=== PATIENT | male | born 1960 | race African-American/Black ===

== ENCOUNTER 2016-05-10 03:01 | Emergency (ER) | payer OTHER ==
[~2016-05-10] VITALS: Ht 177.8 cm; Wt 112.0 kg
[~2016-05-10 03:01] MED LIST: ASPIR 8181 MG PO; ATORVASTATIN CA40 MG PO; COREG3.125 MG PO; EPOGEN10000 UNIT IV; ERYTHROMYCIN E3.5 G1 OPHTHALMIC; FLORANEX TABLE1 EACH; FOLIC ACID1 MG PO; GLUCOSE BITS1 GM; LIORESAL 10 MG10 MG; NEURONTIN 300300 M1; PHOSLO667 MG; PLAVIX 75 MG TA75 M1 PO; PROTONIX40 M1; REGLAN 10 MG TA10 MG PO; SANTYL OINTMENT30 G1 TP; SODIUM BICARBO650 M3 PO; SULFAMYLON; TIMOLOL MA0.25 %/5 M; VITAMINC500; XALATAN2.5 ML
[2016-05-10] MEDS ORDERED: ASPIR 8181 MG PO (03:20)
[2016-05-10] MEDS ORDERED: TYLENOL325 MG PO (03:26)
[2016-05-10] MEDS ORDERED: NEPHRO-VITE RX1 TA1 PO (03:26)
[2016-05-10] MEDS ORDERED: AZOPT OPHTH1 %/10 M1 OP (03:27)
[2016-05-10] MEDS ORDERED: TRAZODONE HCL50 MG PO (03:28)
[2016-05-10] MEDS ORDERED: LOPERAMIDE 2 MG2 M1 PO ×2 (03:28→03:32)
[2016-05-10] MEDS ORDERED: ALPHAGAN P10 ML OP (03:28)
[2016-05-10] MEDS ORDERED: ERYTHROMYCIN E3.5 G3 OPHTHALMIC (03:29)
[2016-05-10] MEDS ORDERED: WELLBUTRIN 100100 MG PO (03:30)
[2016-05-10] MEDS ORDERED: ATIVAN0.5 MG PO (03:30)
[2016-05-10] MEDS ORDERED: RENVELA800 MG PO (03:31)
[2016-05-10] MEDS ORDERED: TRAMADOL 50 MG50 MG PO (03:31)
[2016-05-10] MEDS ORDERED: ONDANSETRON HCL4 M2 PO (03:32)
[2016-05-10] MEDS ORDERED: OCUFLOX10 ML OP (03:32)
[2016-05-10] MEDS ORDERED: SULFAMYLON TP (03:34)
[2016-05-10 04:10] VITALS: BP 132/63
== END 2016-05-10 05:12 | disposition home or self-care (01) ==
LOC: ER 03:01
DX: S09.90XA Unspecified injury of head, initial encounter (principal); I12.0 Hypertensive chronic kidney disease with stage 5 chronic kidney disease or end stage renal disease; N18.6 End stage renal disease; E11.9 Type 2 diabetes mellitus without complications; H40.9 Unspecified glaucoma; Z88.8 Allergy status to other drugs, medicaments and biological substances; W06.XXXA Fall from bed, initial encounter; Y93.89 Activity, other specified; Y92.89 Other specified places as the place of occurrence of the external cause; Y99.8 Other external cause status

== ENCOUNTER 2016-10-27 16:52 | Emergency (ER) | payer OTHER ==
[~2016-10-27] VITALS: Ht 177.8 cm; Wt 124.7 kg
--- NOTE | ~2016-10-27 | EKG ---
[place] [address] [address] [place] [address] ELECTROCARDIOGRAM REPORT Name: TAON FISCHER Room #: DEP Idalia#: [id number] Admission: 10/27/16 Attend Phys: Discharge: 10/27/16 Date of : 56 Report #: [id number] THIS REPORT FOR: //name// [facility] ED Test Date: 2016-10-27 Test Time: 16:55:53 Pat Name: TOAN FISCHER Department: Room: Gender: Rangeland Management Specialist: JINNY : 1960 Requested By: Pam Delacruz Order Number: [id number] MD: Mehran Cobb Measurements Intervals [place] Rate: 93 P: 31 [place]: 177 QRS: 3 QRSD: 80 T: 65 QT: 388 QTc: 483 Interpretive Statements Sinus rhythm Left ventricular hypertrophy Borderline prolonged QT interval No previous ECG available for comparison Electronically Signed On 10-28-2016 22:54:44 CDT by Mehran Cobb [email or web address] <ELECTRONICALLY SIGNED> By: Mehran Cobb MD 10/28/16 2254 1655 1655 Mehran Cobb MD /HUONG
[~2016-10-27 16:52] MED LIST changes: +ALPHAGAN P10 ML OP; +ATIVAN0.5 MG PO; +AZOPT OPHTH1 %/10 M1 OP; +ERYTHROMYCIN E3.5 G3 OPHTHALMIC; +LOPERAMIDE 2 MG2 M1 PO; +NEPHRO-VITE RX1 TA1 PO; +OCUFLOX10 ML OP; +ONDANSETRON HCL4 M2 PO; +RENVELA800 MG PO; +SULFAMYLON TP; +TRAMADOL 50 MG50 MG PO; +TRAZODONE HCL50 MG PO; +TYLENOL325 MG PO; +WELLBUTRIN 100100 MG PO
[2016-10-27] MEDS ORDERED: BENADRYL25 MG PO (17:17)
[2016-10-27] MEDS ORDERED: CYCLOBENZAPRINE5 MG PO (17:22)
[2016-10-27] MEDS ORDERED: ACETAMINOPHEN-1 EAC1 PO (17:23)
[2016-10-27] MEDS ORDERED: COLACE100 MG PO (17:24)
[2016-10-27] MEDS ORDERED: LIPITOR 20 MG T20 M1 PO (17:25)
[2016-10-27 17:29] LABS: ABSOLUTE NEUTROPHILS 5.1 thou/uL (1.4-8.2); BASOPHILS 0.5 % (0.0-2.0); EOSINOPHILS 1.5 % (0.0-3.0); HEMATOCRIT 40.9 % (42.0-52.0); HEMOGLOBIN 13.1 gm/dL (14.0-18.0); LYMPHOCYTES 12.4 % (24.0-44.0); MCH 31.5 pg (26.0-34.0); MCHC 32.1 g/dL (28.0-37.0); MCV 98.2 fL (80.0-100.0); MONOCYTES 8.4 % (1.0-8.0); PLATELET COUNT 206 thou/uL (150-400); POLYS 77.2 % (36.0-66.0); RBC 4.16 mil/uL (4.50-6.00); RDW 16.3 % (10.5-14.5); WBC 6.6 thou/uL (4.0-11.0)
[2016-10-27 17:30] LABS: MANUAL DIFF NO
[2016-10-27 17:32] LABS: ANION GAP 8 mmol/L (7-16); BUN 37 mg/dL (7-18); CHLORIDE 97 mmol/L (98-107); CO2 29 mmol/L (21-32); CREATININE 5.7 mg/dL (0.7-1.3); GLUCOSE 98 mg/dL (74-106); SODIUM 134 mmol/L (136-145)
[2016-10-27 17:40] LABS: TROPONIN-I < 0.04 ng/mL (<0.04-0.07)
[2016-10-27 20:09] LABS: ABG COMMENT ROOM AIR; ABG SAMPLE TYPE ARTERIAL; BE(vivo) 4.7 mmol/L (-2 to +3); HCO3 30.3 mmol/L (22.0-26.0); LACTATE 1.25 mmol/L (0.5-2.0); O2Hb 88.9 % (92.0-98.0); PCO2 49.2 mmHg (35.0-45.0); PO2 67.7 mmHg (80.0-100.0); STICK SITE L.RADIAL; pH 7.408 (7.360-7.450); sO2 93.4 % (92.0-98.0); tCO2 31.9 mmol/L (24.0-30.0)
[2016-10-27 21:25] VITALS: BP 174/103
== END 2016-10-27 21:02 | disposition home or self-care (01) ==
LOC: ER 16:52
PROVIDERS: Emergency Medicine
DX: R41.82 Altered mental status, unspecified (principal); I12.0 Hypertensive chronic kidney disease with stage 5 chronic kidney disease or end stage renal disease; E11.22 Type 2 diabetes mellitus with diabetic chronic kidney disease; N18.6 End stage renal disease; K21.9 Gastro-esophageal reflux disease without esophagitis; I48.91 Unspecified atrial fibrillation; H40.9 Unspecified glaucoma; Z88.8 Allergy status to other drugs, medicaments and biological substances

== ENCOUNTER 2016-10-28 11:19 | Emergency (ER) | payer OTHER ==
[~2016-10-28] VITALS: Ht 177.8 cm; Wt 99.8 kg
[~2016-10-28 11:19] MED LIST changes: +ACETAMINOPHEN-1 EAC1 PO; +BENADRYL25 MG PO; +COLACE100 MG PO; +CYCLOBENZAPRINE5 MG PO; +LIPITOR 20 MG T20 M1 PO
[2016-10-28 11:57] LABS: ABSOLUTE NEUTROPHILS 3.8 thou/uL (1.4-8.2); BASOPHILS 0.7 % (0.0-2.0); HEMATOCRIT 40.4 % (42.0-52.0); MCH 31.8 pg (26.0-34.0); MCHC 32.2 g/dL (28.0-37.0); MCV 98.6 fL (80.0-100.0); MONOCYTES 11.1 % (1.0-8.0); PLATELET COUNT 191 thou/uL (150-400); POLYS 69.2 % (36.0-66.0); RDW 16.4 % (10.5-14.5); WBC 5.5 thou/uL (4.0-11.0)
[2016-10-28 11:58] LABS: MANUAL DIFF NO
[2016-10-28 12:08] LABS: POTASSIUM 5.1 mmol/L (3.5-5.1)
[2016-10-28 12:09] LABS: CREATININE 7.1 mg/dL (0.7-1.3)
[2016-10-28 12:12] LABS: ALBUMIN 2.6 g/dL (3.4-5.0); DIRECT BILIRUBIN 0.2 mg/dL (<0.1-0.3); TOTAL BILIRUBIN 0.4 mg/dL (<0.1-1.0); TOTAL PROTEIN 8.6 g/dL (6.4-8.2)
[2016-10-28 13:25] VITALS: BP 174/91
== END 2016-10-28 12:24 | disposition home or self-care (01) ==
LOC: ER 11:19
PROVIDERS: Emergency Medicine
DX: R41.82 Altered mental status, unspecified (principal); I48.91 Unspecified atrial fibrillation; K21.9 Gastro-esophageal reflux disease without esophagitis; I12.0 Hypertensive chronic kidney disease with stage 5 chronic kidney disease or end stage renal disease; E11.22 Type 2 diabetes mellitus with diabetic chronic kidney disease; N18.6 End stage renal disease; Z88.8 Allergy status to other drugs, medicaments and biological substances

== ENCOUNTER 2016-11-27 10:11 | Inpatient (IN) | payer OTHER ==
[~2016-11-27] VITALS: Ht 177.8 cm; Wt 88.5 kg
[2016-11-27] VITALS (7 sets, daily range): BP systolic 150–198; BP diastolic 79–111
--- NOTE | ~2016-11-27 | EKG ---
[place] [address] [facility] [place] [address] ELECTROCARDIOGRAM REPORT Name: GURJIT FISCHERWin Reyna Room #: 306-P ADM IN M.R.#: [id number] Admission: 11/27/16 Attend Phys: Ford Marie MD Discharge: Date of : 56 Report #: [id number] THIS REPORT FOR: //name// [facility] ED Test Date: 2016-11-27 Test Time: 10:17:57 Pat Name: TOAN FISCHER Department: Room: [facility] Gender: M Date Pitter: [id number] : 1960 Requested By: Ben Arthur Order Number: [id number] MD: Fan Cody Measurements Intervals [place] Rate: 88 P: 33 [place]: 177 QRS: 3 QRSD: 89 T: 59 QT: 374 QTc: 453 Interpretive Statements Sinus rhythm Ventricular premature complexes Left ventricular hypertrophy Compared to ECG 10/27/2016 16:55:53 Ventricular premature complex(es) now present Electronically Signed On 11-28-2016 9:20:39 CDT by Fan Cody [email or web address] <ELECTRONICALLY SIGNED> By: Fan Cody MD, [facility] 11/28/16 0920 1017 1017 Fan Cody MD, [facility] /EPI
--- NOTE | ~2016-11-27 | HC ---
[facility] [place] [address] CONSULTATION Name: TOAN FISCHER Room #: 306-P [facility] IN ..#: [id number] Admission: 11/27/16 Attend Phys: Ford Marie MD Discharge: Date of : 56 Report #: [id number] THIS REPORT FOR: //name// CC: Ford Marie [facility] REASON FOR CONSULTATION: Mental status issue with end-stage renal disease. HISTORY OF PRESENT ILLNESS: The patient is currently having mental status issues. History was obtained from the chart and the medical records. He is well known to me from previous hospital stays and encounters in an outpatient setting. He is an end-stage renal disease patient who is known to have some baseline dementia. He is dialyzing in [facility] every Thursday, Thursday and Thursday. He has end-stage renal disease due to diabetes mellitus and hypertension. He was brought from his facility yesterday stating that he was confused, sleepy. He was admitted for further evaluation and management. His sister was bedside. Per the nursing staff in the facility, they found him with an altered mental status. As I have stated, he is known to have some baseline dementia and it is really very difficult to tell what kind of change did he have in his mental status. I was consulted to manage his end-stage renal disease. PAST MEDICAL HISTORY: 1. Baseline dementia. 2. End-stage renal disease, maintained on hemodialysis every Thursday, Thursday and Thursday. 3. Diabetes mellitus. 4. AFib. 5. Hypertension. 6. Peripheral arterial disease. 7. Anemia. MEDICATIONS: 1. Sevelamer. 2. Aspirin. 3. Baclofen. 4. Plavix. 5. Folic acid. 6. Gabapentin. 7. Trazodone. REVIEW OF SYSTEMS: Unobtainable given the patient's current presentation. FAMILY HISTORY: Unobtainable given the patient's mental status. PHYSICAL EXAMINATION: GENERAL: The patient is sleepy, lethargic. He is not in any apparent distress. [address] [address] CONSULTATION Name: TOAN FISCHER Axel Room #: 306-P [facility] IN M.R.#: [id number] Admission: 11/27/16 Attend Phys: Ford Marie MD Discharge: Date of : 56 Report #: [id number] VITAL SIGNS: Most recent blood pressure 124/86, temperature 36.6, pulse rate is 116. HEAD AND NECK: No jugular venous distention, no bruit, no thyromegaly. CHEST: Decreased air entry bilaterally. CARDIOVASCULAR: Regular with no rub detected. ABDOMEN: Soft, nontender. LOWER EXTREMITIES: Trace edema. He has some heel ulcers. UPPER EXTREMITIES: Right AV fistula. LABORATORY VALUES: Reviewed. White blood cell count normal. Blood gas is acceptable. Chemistry showed hyperkalemia. He is hypoalbuminemic. CT head was negative. ASSESSMENT, IMPRESSION AND PLAN: 1. End-stage renal disease. 2. Mental status issues, probably related to medication-induced mental status changes due to baclofen and Neurontin. Stop those medications. 3. UA is not suggestive of urinary tract infections and I would discontinue Rocephin. 4. Hemodialysis will be arranged today. <ELECTRONICALLY SIGNED> By: Soledad Silva MD 11/29/16 0725 0806 0940 Soledad Silva MD /nt
[2016-11-27 10:33] LABS: HEMATOCRIT 35.4 % (42.0-52.0); HEMOGLOBIN 11.5 gm/dL (14.0-18.0); MCH 30.7 pg (26.0-34.0); MCHC 32.5 g/dL (28.0-37.0); MCV 94.4 fL (80.0-100.0); RBC 3.75 mil/uL (4.50-6.00); RDW 14.9 % (10.5-14.5)
[2016-11-27 10:44] LABS: ANION GAP 11 mmol/L (7-16); BUN 48 mg/dL (7-18); CALCIUM 9.1 mg/dL (8.5-10.1); CHLORIDE 102 mmol/L (98-107); CO2 26 mmol/L (21-32); CREATININE 7.3 mg/dL (0.7-1.3); GLUCOSE 90 mg/dL (74-106); POTASSIUM 4.9 mmol/L (3.5-5.1); SODIUM 139 mmol/L (136-145)
[2016-11-27 10:46] LABS: INR 1.1
[2016-11-27 10:51] LABS: TROPONIN-I < 0.04 ng/mL (<0.04-0.07)
[2016-11-27 11:20] LABS: ALBUMIN 2.3 g/dL (3.4-5.0); DIRECT BILIRUBIN 0.2 mg/dL (<0.1-0.3); TOTAL BILIRUBIN 0.3 mg/dL (<0.1-1.0); TOTAL PROTEIN 8.2 g/dL (6.4-8.2)
[2016-11-27 13:23] LABS: URINE BILIRUBIN NEGATIVE (Negative); URINE BLOOD 3+ (Negative); URINE COLOR YELLOW; URINE GLUCOSE-RANDOM* NEGATIVE (Negative); URINE KETONES NEGATIVE (Negative); URINE LEUKOCYTES-REFLEX 3+ (Negative); URINE PROTEIN (DIPSTICK) 2+ (Negative); URINE SPECIFIC GRAVITY 1.015 (1.003-1.035); URINE UROBILINOGEN 0.2 E.U./dl (0.2-1.0)
[2016-11-27 13:33] LABS: SQUAMOUS 0-3 Few /LPF (0-3)
[2016-11-27 13:34] LABS: CASTS None Seen /LPF (None Seen)
[2016-11-27 13:37] LABS: AMORPHOUS URATES Many /LPF (None Seen)
[2016-11-27 17:22] LABS: ABG SAMPLE TYPE ARTERIAL; BE(vivo) -3.1 mmol/L (-2 to +3); HCO3 22.5 mmol/L (22.0-26.0); LACTATE 1.39 mmol/L (0.5-2.0); O2(CT) 14.3 mL/dL (15.0-23.0); O2Hb 88.9 % (92.0-98.0); PCO2 42.2 mmHg (35.0-45.0); PO2 75.6 mmHg (80.0-100.0); pH 7.344 (7.360-7.450); sO2 94.5 % (92.0-98.0); tCO2 23.8 mmol/L (24.0-30.0)
[2016-11-27 17:23] LABS: STICK SITE R.RADIAL
[2016-11-27] MEDS ORDERED: NEPHRO-VITE PO (18:46)
[2016-11-27] MEDS ORDERED: JUVEN PACKET1 EACH PO ×2 (19:36→19:37)
[2016-11-27] MEDS ORDERED: AZOPT OPHTH1 %/10 M1 OPHTHALMIC (19:38)
[2016-11-27] MEDS ORDERED: ROBITUSSIN PO (19:44)
[2016-11-27] MEDS ORDERED: VOLTAREN GEL 1100 G2 TOP (19:52)
[2016-11-27] MEDS ORDERED: SULFAMYLON TP (19:53)
[2016-11-28 03:55] VITALS: BP 124/86
[2016-11-28 04:46] LABS: HEMATOCRIT 36.7 % (42.0-52.0); MCHC 32.7 g/dL (28.0-37.0); MCV 94.8 fL (80.0-100.0); RBC 3.87 mil/uL (4.50-6.00); RDW 14.8 % (10.5-14.5); WBC 6.7 thou/uL (4.0-11.0)
[2016-11-28 04:58] LABS: ALBUMIN 2.3 g/dL (3.4-5.0); CREATININE 8.1 mg/dL (0.7-1.3); POTASSIUM 5.4 mmol/L (3.5-5.1); TOTAL BILIRUBIN 0.3 mg/dL (<0.1-1.0); TOTAL PROTEIN 8.5 g/dL (6.4-8.2)
[2016-11-28 08:12] VITALS: BP 166/87
[2016-11-28 11:52] LABS: FOLIC ACID 37.5 ng/mL (8.6-58.9)
[2016-11-28 15:31] VITALS: BP 177/98
[2016-11-28 20:00] VITALS: BP 189/113
[2016-11-29] VITALS: BP 165/84
[2016-11-29 04:00] VITALS: BP 155/86
[2016-11-29 05:41] LABS: HEMATOCRIT 32.9 % (42.0-52.0); HEMOGLOBIN 10.9 gm/dL (14.0-18.0); MCH 31.4 pg (26.0-34.0); MCHC 33.1 g/dL (28.0-37.0); MCV 94.6 fL (80.0-100.0); RBC 3.48 mil/uL (4.50-6.00); RDW 14.6 % (10.5-14.5); WBC 7.1 thou/uL (4.0-11.0)
[2016-11-29 05:48] LABS: CALCIUM 8.8 mg/dL (8.5-10.1); POTASSIUM 4.1 mmol/L (3.5-5.1)
[2016-11-29 05:51] LABS: CREATININE 5.8 mg/dL (0.7-1.3)
[2016-11-29 07:17] VITALS: BP 151/80
[2016-11-29 16:00] VITALS: BP 159/97
[2016-11-29 19:45] VITALS: BP 168/89
[2016-11-30 04:15] VITALS: BP 191/101
[2016-11-30 05:44] VITALS: BP 159/90
[2016-11-30 08:12] VITALS: BP 147/84
[2016-11-30 16:21] VITALS: BP 165/86
[2016-11-30 20:00] VITALS: BP 142/76
[2016-12-01 03:57] VITALS: BP 180/90
[2016-12-01 05:31] VITALS: BP 136/59
[2016-12-01 07:11] LABS: CALCIUM 8.6 mg/dL (8.5-10.1); POTASSIUM 4.1 mmol/L (3.5-5.1)
[2016-12-01 07:13] LABS: CREATININE 9.8 mg/dL (0.7-1.3)
[2016-12-01 10:22] VITALS: BP 154/81
[2016-12-01 20:10] VITALS: BP 125/72
[2016-12-02 03:55] VITALS: BP 120/63
[2016-12-02 08:23] VITALS: BP 142/86
== END 2016-12-02 14:36 | DRG 871 ==
LOC: ER 10:11 → EROBS 13:51 → 3N 13:51
PROVIDERS: Emergency Medicine; Family Medicine; Psychiatry & Neurology Neurology
PROC: 5A1D60Z (ICD-10-PCS; principal; 2016-12-01)
DX: A41.9 Sepsis, unspecified organism (principal); G93.41 Metabolic encephalopathy; N18.6 End stage renal disease; N39.0 Urinary tract infection, site not specified; I12.0 Hypertensive chronic kidney disease with stage 5 chronic kidney disease or end stage renal disease; E44.0 Moderate protein-calorie malnutrition; E11.22 Type 2 diabetes mellitus with diabetic chronic kidney disease; H40.9 Unspecified glaucoma; K21.9 Gastro-esophageal reflux disease without esophagitis; E11.51 Type 2 diabetes mellitus with diabetic peripheral angiopathy without gangrene; I48.91 Unspecified atrial fibrillation; E87.5 Hyperkalemia; E11.649 Type 2 diabetes mellitus with hypoglycemia without coma; G20 Parkinson's disease; F02.80 Dementia in other diseases classified elsewhere, unspecified severity, without behavioral disturbance, psychotic disturbance, mood disturbance, and anxiety; Z79.899 Other long term (current) drug therapy; Z88.8 Allergy status to other drugs, medicaments and biological substances; Z68.28 Body mass index [BMI] 28.0-28.9, adult; Z79.4 Long term (current) use of insulin; Z86.73 Personal history of transient ischemic attack (TIA), and cerebral infarction without residual deficits; Z99.2 Dependence on renal dialysis
CPT/HCPCS: 10795; 32100

== ENCOUNTER 2017-06-10 06:37 | Inpatient (IN) | payer OTHER ==
[2017-06-10] VITALS (46 sets, daily range): BP systolic 73–131; BP diastolic 29–80
[~2017-06-10] VITALS: Ht 177.8 cm; Wt 93.0 kg
--- NOTE | ~2017-06-10 | HC ---
[facility] [address] [place] [address] CONSULTATION Name: TOAN FISCHER Room #: 246-P [facility] IN M.R.#: [id number] Admission: 06/10/17 Attend Phys: Jocelyne Gonzalez MD Discharge: Date of : 56 Report #: [id number] THIS REPORT FOR: //name// CC: FAM unknown Herbie Ponce Jocelyne Gonzalez DATE OF SERVICE: 06/10/2017 ATTENDING PHYSICIAN: Jocelyne Gonzalez MD. REASON FOR CONSULTATION: End-stage renal disease and sepsis. HISTORY OF PRESENT ILLNESS: The patient is known to our service. This is a 56-year-old gentleman with severe diabetes and triopathy, who has been on dialysis for some time. He dialyzes at the [facility] and resides in the [facility]. He developed profuse nausea, vomiting and hypotension with decreased mental status and was taken to the Emergency Room. PAST MEDICAL HISTORY: Longstanding diabetes mellitus, history of atrial fibrillation, peripheral arterial disease. He has had previous left heel ulcer and some degree of cognitive impairment. HOME MEDICATIONS: Have been compiled. FAMILY HISTORY: Please see old charts. SOCIAL HISTORY: Lives at [facility]. REVIEW OF SYSTEMS: Cannot be taken as the patient is unresponsive. PHYSICAL EXAMINATION: GENERAL: This is an ill-appearing gentleman, barely arousable. SKIN: Shows decreased turgor. SKELETAL: Shows him to be rather obese. HEENT: Extraocular movements cannot be tested. No scleral icterus. Hearing and vision not tested. Mucous membranes dry. The neck veins are flat. CHEST: Shows shallow breath sounds. HEART: Regular. ABDOMEN: Soft and nontender. EXTREMITIES: Show no edema. He has a reasonably well-healed left heel ulcer. LABORATORY DATA: Pending. [facility] [address] [place] [address] CONSULTATION Name: TOAN FISCHER Room #: 246-P [facility] IN .R.#: [id number] Admission: 06/10/17 Attend Phys: Jocelyne Gonzalez MD Discharge: Date of : 56 Report #: [id number] ASSESSMENT AND PLAN: 1. End-stage renal disease. We will watch his labs closely. We will need dialysis. 2. Septic shock. Appears to have septic shock with low blood pressures, likely source could be his dialysis catheter. Blood cultures and appropriate antibiotics and fluids are being given for resuscitation. 3. 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 4. Diabetes mellitus with triopathy. 5. History of cognitive impairment. <ELECTRONICALLY SIGNED> By: Herbie Ponce MD 06/12/17 0823 1117 0258 Herbie Ponce MD /nt
--- NOTE | ~2017-06-10 | HC ---
[facility] [place] [address] CONSULTATION Name: AALIYAHTOAN E Room #: 246-P [facility] IN M.R.#: [id number] Admission: 06/10/17 Attend Phys: Jocelyne Gonzalez MD Discharge: Date of : 56 Report #: [id number] THIS REPORT FOR: //name// CC: FAM unknown Herbie Ponce Jocelyne Gonzalez DATE OF SERVICE: 06/10/2017 REASON FOR CONSULTATION: I was asked to evaluate concerning fever, gastroenteritis symptoms and shock. HISTORY OF PRESENT ILLNESS: The patient is a 56-year-old senior care resident with end-stage renal disease, longstanding gastroparesis, diabetes and hypertension. He dialyzes via a right chest dialysis catheter 3 days a week. Approximately 4 days ago, he developed nausea, vomiting and diarrhea. Some chills associated with this with temperature up to 100.1 degrees. No cough or sputum production. Complains of arthritis symptoms and myalgias. No bloody emesis. No melena or hematochezia. Brought into the Emergency Room from the Dialysis Unit. Temperature was 37.9, heart rate 121, and blood pressures dropped down into the 60s systolic. He has received 2 liters of IV fluid and now is being started on Levophed drip. A left IJ catheter was placed, but it is poorly positioned currently and is having difficulty infusing or drawing from the catheter. ALLERGIES: LYRICA. MEDICATIONS: As noted on his MAR including Wellbutrin, Renvela, Colace, Kaleb, Voltaren gel, Sulfamylon, aspirin, PhosLo, Plavix, folic acid, Neurontin, Protonix, Xalatan eyedrops, timolol eyedrops, Azopt eyedrops, Desyrel, Tylenol, Aranesp and Benadryl. Started on vancomycin and Zosyn. PAST MEDICAL HISTORY: He has had left heel decubitus ulcer, diabetes, hypertension, atrial fibrillation, glaucoma, end-stage renal disease, gastroesophageal reflux, gastroparesis, cataracts. FAMILY HISTORY: Noncontributory. SOCIAL HISTORY: Nonsmoker. No significant alcohol intake. Now a senior care resident. REVIEW OF SYSTEMS: As noted above. PHYSICAL EXAMINATION: VITAL SIGNS: Temperature 37.9, pulse 103, blood pressure 75/33. GENERAL: He was very weak and lethargic, although was able to answer questions. [facility] [address] [place] [address] CONSULTATION Name: TOAN FISCHER Room #: 246-P [facility] IN [facility]#: [id number] Admission: 06/10/17 Attend Phys: Jocelyne Gonzalez MD Discharge: Date of : 56 Report #: [id number] Had changes of advanced arthritis, appeared mostly degenerative in nature. EXTREMITIES: Unremarkable. Mucous membranes were dry. He had just had an emesis. SKIN: No active evidence of rash or decubiti. Right heel had a scar from his previous ulcer. Thickened skin over the plantar aspect of his left heel with no evidence of ulceration or infection. No pelvic decubiti noted. NECK: Supple. LUNGS: Clear. HEART: Regular, tachycardic. ABDOMEN: Mildly distended, mild diffuse tenderness, no hepatosplenomegaly or mass. GENITOURINARY: External genitalia unremarkable. His right IJ tunneled dialysis catheter was unremarkable. There was a contamination of the dressing from his emesis. Tunnel was nontender. LABORATORY STUDIES: Stool studies are pending. Chest x-ray: Basilar atelectasis with poor inspiration. Other laboratory studies have not yet been collected due to issues with a central line. We do have a set of blood cultures in place and stool sample. Await influenza antigen. IMPRESSION: The patient has hypovolemic and possibly septic shock with low-grade fever, gastroparesis with gastroenteritis symptoms. Unclear at this time if we are dealing with influenza or primary gastroenteritis infection. Other consideration would be flare up of his gastroparesis symptoms. This typically, however, would not be associated with diarrhea necessarily. I do not see any evidence of pneumonia or skin or soft tissue infection. Recommend awaiting blood cultures. I have discussed with ER staff as well as Nephrology. He has had antibiotics started, would continue with fluid resuscitation and we will obtain samples for stool culture, C. difficile by PCR and screen for influenza. He will continue with vancomycin and Zosyn and we will add Tamiflu pending further studies. <ELECTRONICALLY SIGNED> By: José Miguel Slaughter MD 06/11/17 0925 1122 2348 José Miguel Slaughter MD /nt
[~2017-06-10 06:37] MED LIST changes: +AZOPT OPHTH1 %/10 M1 OPHTHALMIC; +JUVEN PACKET1 EACH PO; +NEPHRO-VITE PO; +ROBITUSSIN PO; +VOLTAREN GEL 1100 G2 TOP
[2017-06-10] MEDS ORDERED: TYLENOL EXTRA500 MG PO (09:18)
[2017-06-10] MEDS ORDERED: ARANESP25 MCG/0.4 IV (09:20)
[2017-06-10] MEDS ORDERED: BENADRYL25 MG PO (09:21)
[2017-06-10] MEDS ORDERED: LOPERAMIDE 2 MG2 M1 PO (10:29)
[2017-06-10] MEDS ORDERED: HYDROCODON-ACE1 EAC7 PO (10:31)
[2017-06-10] MEDS ORDERED: NEPHROCAPS SOFT1 CAP PO (10:32)
[2017-06-10] MEDS ORDERED: PERIDEX 0.12%473 M1 PO (10:34)
[2017-06-10] MEDS ORDERED: ERYTHROMYCIN 2% OPHTHALMIC (10:37)
[2017-06-10] MEDS ORDERED: REGLAN 10 MG TA10 MG PO (10:38)
[2017-06-10] MEDS ORDERED: [UNRECOGNIZED DRUG - MIXTURE] (10:41)
[2017-06-10] MEDS ORDERED: OCUFLOX5 ML OPHTHALMIC (10:42)
[2017-06-10] MEDS ORDERED: ARTIFICIAL TEAR15 M2 OPHTHALMIC (10:43)
[2017-06-10] MEDS ORDERED: ULTRAM 50MG TAB50 MG PO (10:44)
[2017-06-10] MEDS ORDERED: [UNRECOGNIZED DRUG - OTHER] (10:45)
[2017-06-10 11:18] LABS: RBC 2.77 mil/uL (4.50-6.00)
[2017-06-10 11:20] LABS: HEMATOCRIT 28.2 % (42.0-52.0); HEMOGLOBIN 9.1 gm/dL (14.0-18.0); MCHC 32.5 g/dL (28.0-37.0); MCV 101.6 fL (80.0-100.0); PLATELET COUNT 159 thou/uL (150-400); RDW 15.4 % (10.5-14.5); WBC 23.8 thou/uL (4.0-11.0)
[2017-06-10 11:26] LABS: CALCIUM 7.6 mg/dL (8.5-10.1); CREATININE 6.9 mg/dL (0.7-1.3); POTASSIUM 4.2 mmol/L (3.5-5.1)
[2017-06-10 11:32] LABS: ALBUMIN 1.5 g/dL (3.4-5.0); TOTAL BILIRUBIN 0.4 mg/dL (<0.1-1.0); TOTAL PROTEIN 5.5 g/dL (6.4-8.2)
[2017-06-10 11:45] LABS: ABSOLUTE NEUTROPHILS 23.1 thou/uL (1.4-8.2)
[2017-06-10 11:47] LABS: ANISOCYTOSIS 1+; MACROCYTES 1+; POLYCHROMASIA OCCASIONAL
[2017-06-10 12:25] LABS: APTT 27.8 Seconds (24.5-32.8); INR 1.1; PROTIME 11.4 Seconds (9.3-11.4)
[2017-06-10 15:40] LABS: CALCIUM 7.4 mg/dL (8.5-10.1); CREATININE 6.9 mg/dL (0.7-1.3); POTASSIUM 4.4 mmol/L (3.5-5.1)
[2017-06-10 18:56] LABS: CALCIUM 7.6 mg/dL (8.5-10.1); CREATININE 7.1 mg/dL (0.7-1.3); POTASSIUM 4.6 mmol/L (3.5-5.1)
[2017-06-11] VITALS (79 sets, daily range): BP systolic 62–117; BP diastolic 36–84
[2017-06-11 04:59] LABS: ABSOLUTE NEUTROPHILS 13.6 thou/uL (1.4-8.2); BASOPHILS 0.9 % (0.0-2.0); EOSINOPHILS 1.4 % (0.0-3.0); HEMATOCRIT 27.3 % (42.0-52.0); HEMOGLOBIN 8.7 gm/dL (14.0-18.0); LYMPHOCYTES 7.8 % (24.0-44.0); MCH 32.6 pg (26.0-34.0); MCHC 31.7 g/dL (28.0-37.0); MCV 102.9 fL (80.0-100.0); MONOCYTES 5.9 % (1.0-8.0); PLATELET COUNT 141 thou/uL (150-400); RBC 2.66 mil/uL (4.50-6.00); RDW 15.8 % (10.5-14.5); WBC 16.2 thou/uL (4.0-11.0)
[2017-06-11 05:12] LABS: CALCIUM 7.6 mg/dL (8.5-10.1); CREATININE 7.6 mg/dL (0.7-1.3); POTASSIUM 4.5 mmol/L (3.5-5.1)
[2017-06-12] VITALS (36 sets, daily range): BP systolic 75–131; BP diastolic 35–82
[2017-06-12 04:45] LABS: ABSOLUTE NEUTROPHILS 6.6 thou/uL (1.4-8.2); BASOPHILS 0.9 % (0.0-2.0); EOSINOPHILS 2.3 % (0.0-3.0); HEMATOCRIT 27.6 % (42.0-52.0); HEMOGLOBIN 8.9 gm/dL (14.0-18.0); LYMPHOCYTES 10.2 % (24.0-44.0); MCH 32.8 pg (26.0-34.0); MCHC 32.1 g/dL (28.0-37.0); MCV 101.9 fL (80.0-100.0); MONOCYTES 8.7 % (1.0-8.0); PLATELET COUNT 143 thou/uL (150-400); POLYS 77.9 % (36.0-66.0); RBC 2.71 mil/uL (4.50-6.00); RDW 15.7 % (10.5-14.5); WBC 8.5 thou/uL (4.0-11.0)
[2017-06-12 04:51] LABS: CALCIUM 7.4 mg/dL (8.5-10.1); POTASSIUM 4.2 mmol/L (3.5-5.1)
[2017-06-12 04:57] LABS: CREATININE 4.6 mg/dL (0.7-1.3)
[2017-06-13 03:37] VITALS: BP 108/41
[2017-06-13 08:00] VITALS: BP 132/52
[2017-06-13 20:00] VITALS: BP 149/59
[2017-06-14] VITALS: BP 152/63
[2017-06-14 04:00] VITALS: BP 135/56
[2017-06-14 07:36] VITALS: BP 142/65
[2017-06-14 15:16] VITALS: BP 129/76
[2017-06-14 19:40] VITALS: BP 106/63
[2017-06-15 04:05] VITALS: BP 131/74
[2017-06-15 07:05] VITALS: BP 93/65
[2017-06-15 15:30] VITALS: BP 110/23
[2017-06-15 19:10] VITALS: BP 89/21
[2017-06-16 00:09] LABS: ADENOVIRUS Negative (Negative); INFLUENZA A Negative (Negative); INFLUENZA B Negative (Negative); METAPNEUMOVIRUS Negative (Negative); PARAINFLUENZA 1 Negative (Negative); PARAINFLUENZA 2 Negative (Negative); PARAINFLUENZA 3 Negative (Negative); RHINOVIRUS Negative (Negative); RSV A Negative (Negative); RSV B Negative (Negative)
[2017-06-16 04:25] VITALS: BP 130/48
[2017-06-16 07:50] VITALS: BP 136/58
[2017-06-16] MEDS ORDERED: ZOSYN 3.373.375 GM/1 IV (09:28)
[2017-06-16] MEDS ORDERED: REGLAN 10 MG TA10 MG PO (09:30)
[2017-06-16 11:09] VITALS: BP 136/58
== END 2017-06-16 15:28 | DRG 871 ==
LOC: ER 06:37 → EROBS 07:20 → ICU 07:20 → 4E 06-13 19:31
PROVIDERS: Emergency Medicine; Internal Medicine; Specialist
PROC: 5A1D70Z Performance of Urinary Filtration, Intermittent, Less than 6 Hours Per Day (ICD-10-PCS; principal; 2017-06-11)
PROC: 05PYX3Z Removal of Infusion Device from Upper Vein, External Approach (ICD-10-PCS; 2017-06-12)
PROC: 5A1D70Z Performance of Urinary Filtration, Intermittent, Less than 6 Hours Per Day (ICD-10-PCS; 2017-06-15)
DX: A41.51 Sepsis due to Escherichia coli [E. coli] (principal); N18.6 End stage renal disease; R65.21 Severe sepsis with septic shock; I12.0 Hypertensive chronic kidney disease with stage 5 chronic kidney disease or end stage renal disease; E11.22 Type 2 diabetes mellitus with diabetic chronic kidney disease; I48.91 Unspecified atrial fibrillation; E86.0 Dehydration; H40.9 Unspecified glaucoma; E78.5 Hyperlipidemia, unspecified; D63.1 Anemia in chronic kidney disease; K52.9 Noninfective gastroenteritis and colitis, unspecified; E11.40 Type 2 diabetes mellitus with diabetic neuropathy, unspecified; E11.43 Type 2 diabetes mellitus with diabetic autonomic (poly)neuropathy; K31.84 Gastroparesis; E11.51 Type 2 diabetes mellitus with diabetic peripheral angiopathy without gangrene; K31.9 Disease of stomach and duodenum, unspecified; K21.9 Gastro-esophageal reflux disease without esophagitis; E66.9 Obesity, unspecified; Z68.29 Body mass index [BMI] 29.0-29.9, adult; Z99.2 Dependence on renal dialysis; Z79.02 Long term (current) use of antithrombotics/antiplatelets; Z79.82 Long term (current) use of aspirin; Z79.899 Other long term (current) drug therapy; Z88.8 Allergy status to other drugs, medicaments and biological substances
CPT/HCPCS: 10078; 10783; 32100

== ENCOUNTER 2018-06-18 12:26 | Inpatient (IN) | payer OTHER ==
[~2018-06-18] VITALS: Ht 177.8 cm; Wt 88.0 kg
--- NOTE | ~2018-06-18 | HC ---
[facility] [place] [address] CONSULTATION Name: TOAN FISCHER Axel Room #: 359-P [facility] IN ..#: [id number] Admission: 06/18/18 ������������������ Attend Phys: Jocelyne Gonzalez MD Discharge: 06/19/18 ������������������ Date of : 56 Report #: [id number] THIS REPORT FOR: //name// CC: Jocelyne Gonzalez DATE OF SERVICE: 06/19/2018 REASON FOR CONSULTATION: End-stage renal disease. REASON FOR PRESENTATION: Altered mental status with hypotension. HISTORY OF PRESENT ILLNESS: A 57-year-old with chronic hypotension. He is known to have end-stage renal disease. He runs into major issues with hypotension related to his dialysis. He dialyzes every Thursday, Thursday and Thursday. He was in the dialysis unit yesterday and was difficult to arouse and hypotensive after returning from hemodialysis. He was admitted for further evaluation. He was able to provide me with the details of the history and was alert and oriented x 3 when evaluated this morning. He has multiple comorbid conditions including lower extremities wound. He has been discharged from the hospital from [facility] recently. PAST MEDICAL HISTORY: 1. Diabetes mellitus. 2. Hypertension. 3. End-stage renal disease, maintained on hemodialysis. FAMILY HISTORY: Significant for diabetes mellitus. SOCIAL HISTORY: Denies drug or alcohol abuse. Resides in the [facility]. MEDICATIONS: 1. Sevelamer. 2. Aspirin. 3. Gabapentin. 4. Tramadol. ALLERGIES: LYRICA. REVIEW OF SYSTEMS: GENERAL: Significant for weakness. CARDIOVASCULAR: No chest pain or palpitation. PULMONARY: No cough or hemoptysis. GASTROINTESTINAL: No nausea or vomiting. MUSCULOSKELETAL: Wounds on the lower extremities. GENERAL: He is alert, oriented. VITAL SIGNS: Blood pressure is 114/90, temperature is 36.9. [facility] [address] [place] [address] CONSULTATION Name: TOAN FISCHER Room #: 359-P [facility]#: [id number] Admission: 06/18/18 ������������������ Attend Phys: Jocelyne Gonzalez MD Discharge: 06/19/18 ������������������ Date of : 56 Report #: [id number] HEAD AND NECK: No jugular venous distention. CHEST: No crackles. CARDIOVASCULAR: No rub. ABDOMEN: Soft, nontender. LOWER EXTREMITIES: +1 edema. LABORATORY DATA: Reviewed. Hemoglobin is 12.1. Sodium is 138, potassium is 3.6, BUN is 21, creatinine is 3.5. ASSESSMENT, IMPRESSION AND PLAN: 1. End-stage renal disease. 2. Recurrent hypotension. 3. Hypotension related to his hemodialysis has normalized. 4. We will arrange for the patient to have his usual hemodialysis every Thursday, Thursday and Thursday. 5. The patient is okay to discharge back to his facility. ��������������������������������������������� ���������������������������������������� By: ��������������������������������������������� 0756 45 Soledad Silva MD /nt
[~2018-06-18 12:26] MED LIST changes: +ARANESP25 MCG/0.4 IV; +ARTIFICIAL TEAR15 M2 OPHTHALMIC; +ERYTHROMYCIN 2% OPHTHALMIC; +HYDROCODON-ACE1 EAC7 PO; +NEPHROCAPS SOFT1 CAP PO; +OCUFLOX5 ML OPHTHALMIC; +PERIDEX 0.12%473 M1 PO; +TYLENOL EXTRA500 MG PO; +ULTRAM 50MG TAB50 MG PO; +ZOSYN 3.373.375 GM/1 IV; +[UNRECOGNIZED DRUG - MIXTURE]; +[UNRECOGNIZED DRUG - OTHER]
[2018-06-18 12:27] VITALS: BP 64/20
[2018-06-18 13:50] LABS: ABSOLUTE NEUTROPHILS 7.5 thou/uL (1.4-8.2); BASOPHILS 0.5 % (0.0-2.0); EOSINOPHILS 0.4 % (0.0-3.0); HEMATOCRIT 37.4 % (42.0-52.0); HEMOGLOBIN 12.1 gm/dL (14.0-18.0); LYMPHOCYTES 11.2 % (24.0-44.0); MCH 29.8 pg (26.0-34.0); MCHC 32.3 g/dL (28.0-37.0); MCV 92.1 fL (80.0-100.0); MONOCYTES 5.5 % (1.0-8.0); PLATELET COUNT 198 thou/uL (150-400); POLYS 82.4 % (36.0-66.0); RBC 4.06 mil/uL (4.50-6.00); RDW 14.9 % (10.5-14.5); WBC 9.1 thou/uL (4.0-11.0)
--- NOTE | 2018-06-18 13:51 | EKG ---
[address] [place] [address] ELECTROCARDIOGRAM REPORT Name: TOAN FISCHER Room #: 170-7 ADM IN M.R.#: [id number] ������������������ Admission: 06/18/18 ������������������ Attend Phys: Jocelyne Gonzalze MD Discharge: ������������������ Date of : 56 Report #: [id number] ����������������������������������������������������������������� [id number] THIS REPORT FOR: //name// [facility] ED Test Date: 2018-06-18 Test Time: 12:41:08 Pat Name: TOAN FISCHER Department: Room: 170 Gender: M Institutional Custodian: LATISHA : 1960 Requested By: Reji Gaines Order Number: [id number] MD: Paul Elmore Measurements Intervals [place] Rate: 104 P: 40 [place]: 176 QRS: 30 QRSD: 88 T: 51 QT: 371 QTc: 488 Interpretive Statements Sinus tachycardia early transition Left ventricular hypertrophy Compared to ECG 11/27/2016 10:17:57 Ventricular premature complex(es) no longer present Electronically Signed On 06-18-2018 13:51:39 FLAT DRIER by Paul Elmore [email or web address] ��������������������������������������������� <ELECTRONICALLY SIGNED> ���������������������������������������� By: Paul Elmore MD ��������������������������������������������� 06/18/18 1351 1241 1241 Paul Emlore MD /EPI
[2018-06-18 14:07] LABS: ALBUMIN 2.6 g/dL (3.4-5.0); ANION GAP 9 mmol/L (7-16); BUN 21 mg/dL (7-18); CALCIUM 8.7 mg/dL (8.5-10.1); CHLORIDE 99 mmol/L (98-107); CO2 30 mmol/L (21-32); CREATININE 3.5 mg/dL (0.7-1.3); GLUCOSE 98 mg/dL (74-106); POTASSIUM 3.6 mmol/L (3.5-5.1); SGOT 20 U/L (15-37); SGPT 24 U/L (30-65); SODIUM 138 mmol/L (136-145); TOTAL BILIRUBIN 0.5 mg/dL (<0.1-1.0); TROPONIN-I <0.06 ng/mL (<0.06)
[2018-06-18 14:51] VITALS: BP 95/59
[2018-06-18 14:57] VITALS: BP 91/67
[2018-06-18 15:44] VITALS: BP 114/45
[2018-06-18] MEDS ORDERED: VITAMINC500 PO (16:52)
[2018-06-18] MEDS ORDERED: EXCEDRIN CAPLE1 EACH PO (16:53)
[2018-06-18] MEDS ORDERED: WELLBUTRIN SR150 MG PO (16:55)
[2018-06-18] MEDS ORDERED: HYDROCODON-ACE1 EAC7 PO (17:01)
[2018-06-18 17:02] VITALS: BP 90/55
[2018-06-18] MEDS ORDERED: ONDANSETRON HCL4 M2 PO (17:04)
[2018-06-18] MEDS ORDERED: OCUFLOX5 ML OPHTHALMIC (17:22)
[2018-06-18] MEDS ORDERED: TRAZODONE HCL50 MG PO (17:23)
[2018-06-18] MEDS ORDERED: LOMOTIL 2.5-0.01 TAB PO (17:26)
--- NOTE | 2018-06-18 18:36 | NUR ---
PATIENT ADMIT TO UNIT AT 1530 FROM ER. A/0 X3. BP 90/55 AT 1700. PATIENT DENIES PAIN. BUE CONTRACTED. VERY STIFF WHEN TRUN. STARTED DIET. WILL KEEP MONITOR.
[2018-06-18 19:25] VITALS: BP 101/46
[2018-06-19 03:40] VITALS: BP 114/90
--- NOTE | 2018-06-19 07:58 | NUR ---
ASSUMED CARE OF PT AT 1900. A&Ox4, COOPERATIVE. BP WAS LOW, MONITORING CLOSELY. WAS ASYMPTOMATIC W/ NO ACUTE DISTRESS. 2 SOFT BMs, CLEANED PRN. TURNED Q 2 HRS. SLOW PROGRESSIION TOWARDS POC GOALS. WILL CONTINUE TO PROVIDE CARE AND MONITOR.
[2018-06-19 08:01] VITALS: BP 98/39
[2018-06-19] MEDS ORDERED: MIDODRINE HCL 55 M1 PO (11:09)
[2018-06-19 11:42] VITALS: BP 105/57
--- NOTE | 2018-06-19 15:55 | NUR ---
PATIENT HAS BEEN DISCHARGED HOME AT THIS TIME. HE DENIES PAIN AT THIS TIME. REPORT CALLED TO BRIGIDO GERMAN WHOM ARE QUITE FAMILIAR WITH PATIENT. HIS LOW BPS HAS BEEN RESOLVED AND HE WILL BE DISCHARGING WITH SUDEEP.
== END 2018-06-19 16:06 | DRG 312 ==
LOC: ER 12:26 → EROBS 13:28 → 3W 15:11
PROVIDERS: Emergency Medicine; ADMIT Internal Medicine
DX: I95.3 Hypotension of hemodialysis (principal); N18.6 End stage renal disease; I12.0 Hypertensive chronic kidney disease with stage 5 chronic kidney disease or end stage renal disease; I48.91 Unspecified atrial fibrillation; H40.9 Unspecified glaucoma; K21.9 Gastro-esophageal reflux disease without esophagitis; I95.9 Hypotension, unspecified; E11.22 Type 2 diabetes mellitus with diabetic chronic kidney disease; D63.8 Anemia in other chronic diseases classified elsewhere; E11.621 Type 2 diabetes mellitus with foot ulcer; Z79.82 Long term (current) use of aspirin; Z98.42 Cataract extraction status, left eye; Z98.41 Cataract extraction status, right eye; Z83.3 Family history of diabetes mellitus; Z88.8 Allergy status to other drugs, medicaments and biological substances; Z79.899 Other long term (current) drug therapy
CPT/HCPCS: 10879

== ENCOUNTER 2018-08-11 15:42 | Emergency (ER) | payer OTHER ==
[~2018-08-11] VITALS: Ht 177.8 cm; Wt 86.2 kg
[~2018-08-11 15:42] MED LIST changes: +EXCEDRIN CAPLE1 EACH PO; +LOMOTIL 2.5-0.01 TAB PO; +MIDODRINE HCL 55 M1 PO; +VITAMINC500 PO; +WELLBUTRIN SR150 MG PO
[2018-08-11 16:26] LABS: ABSOLUTE NEUTROPHILS 4.9 thou/uL (1.4-8.2); BASOPHILS 0.5 % (0.0-2.0); EOSINOPHILS 1.3 % (0.0-3.0); HEMATOCRIT 37.5 % (42.0-52.0); LYMPHOCYTES 17.7 % (24.0-44.0); MCH 29.6 pg (26.0-34.0); MCV 92.6 fL (80.0-100.0); MONOCYTES 8.9 % (1.0-8.0); PLATELET COUNT 132 thou/uL (150-400); POLYS 71.6 % (36.0-66.0); RBC 4.05 mil/uL (4.50-6.00); RDW 16.9 % (10.5-14.5); WBC 6.8 thou/uL (4.0-11.0)
[2018-08-11 16:27] LABS: CALCIUM 8.4 mg/dL (8.5-10.1); POTASSIUM 3.2 mmol/L (3.5-5.1)
[2018-08-11 19:46] VITALS: BP 120/49
--- NOTE | 2018-08-12 08:59 | EKG ---
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: patricia castellano rn : 1960 Requested By: Reji Cooley Order Number: [id number] MD: Fan Cody Measurements Intervals [place] Rate: 86 P: 20 [place]: 197 QRS: 13 QRSD: 87 T: 29 QT: 398 QTc: 476 Interpretive Statements Sinus rhythm Abnormal R-wave progression, early transition Borderline prolonged QT interval Compared to ECG 06/18/2018 12:41:08 Sinus tachycardia no longer present Electronically Signed On 08-12-2018 8:59:13 CDT by Fan Cody [email or web address] ��������������������������������������������� <ELECTRONICALLY SIGNED> ���������������������������������������� By: Fan Cody MD, [facility] ��������������������������������������������� 08/12/18 0859 1708 07 Fan Cody MD, [facility] /EPI
== END 2018-08-11 19:47 | disposition home or self-care (01) ==
LOC: ER 15:42
PROVIDERS: Emergency Medicine
DX: I95.9 Hypotension, unspecified (principal); I10 Essential (primary) hypertension; I48.91 Unspecified atrial fibrillation; K21.9 Gastro-esophageal reflux disease without esophagitis; E11.43 Type 2 diabetes mellitus with diabetic autonomic (poly)neuropathy; K31.84 Gastroparesis; Z88.8 Allergy status to other drugs, medicaments and biological substances

== ENCOUNTER 2018-08-12 05:33 | Emergency (ER) | payer OTHER ==
[~2018-08-12] VITALS: Ht 177.8 cm; Wt 86.2 kg
[2018-08-12 06:06] LABS: CALCIUM 8.6 mg/dL (8.5-10.1); CREATININE 5.4 mg/dL (0.7-1.3); POTASSIUM 3.4 mmol/L (3.5-5.1)
[2018-08-12 06:13] LABS: ALBUMIN 2.6 g/dL (3.4-5.0); DIRECT BILIRUBIN 0.1 mg/dL (<0.1-0.3); TOTAL BILIRUBIN 0.5 mg/dL (<0.1-1.0); TOTAL PROTEIN 7.7 g/dL (6.4-8.2)
[2018-08-12 06:26] LABS: HEMATOCRIT 39.9 % (42.0-52.0); HEMOGLOBIN 12.4 gm/dL (14.0-18.0); MCH 29.5 pg (26.0-34.0); MCHC 31.1 g/dL (28.0-37.0); MCV 94.9 fL (80.0-100.0); PLATELET COUNT 146 thou/uL (150-400); RDW 17.9 % (10.5-14.5); WBC 2.1 thou/uL (4.0-11.0)
[2018-08-12 07:57] LABS: ABSOLUTE NEUTROPHILS 1.7 thou/uL (1.4-8.2)
[2018-08-12 07:58] LABS: ANISOCYTOSIS 1+
--- NOTE | 2018-08-12 09:05 | EKG ---
[place] [address] [facility] [place] [address] ELECTROCARDIOGRAM REPORT Name: TOAN FISCHER [facility] [id number] ������������������ Admission: 08/12/18 ������������������ Attend Phys: Discharge: ������������������ Date of : 56 Report #: [id number] ����������������������������������������������������������������� [id number] THIS REPORT FOR: //name// [facility] ED Test Date: 2018-08-12 Test Time: 05:56:45 Pat Name: TOAN FISCHER Department: Room: Gender: Credit Adjuster: KMD : 1960 Requested By: Liliana Mendes Order Number: [id number] MD: Fan Cody Measurements Intervals [place] Rate: 135 P: -19 ID: 157 QRS: 13 QRSD: 84 T: 147 QT: 281 QTc: 422 Interpretive Statements Sinus tachycardia Nonspecific ST segment abnormality Compared to ECG 06/18/2018 12:41:08 Heart rate has increased Electronically Signed On 08-12-2018 9:05:02 CDT by Fan Cody [email or web address] ��������������������������������������������� <ELECTRONICALLY SIGNED> ���������������������������������������� By: Fan Cody MD, [facility] ��������������������������������������������� 08/12/18 0905 0556 0556 Fan Cody MD, [facility] /EPI
[2018-08-12 09:42] VITALS: BP 95/32
== END 2018-08-12 09:43 | disposition short-term general hospital (02) ==
LOC: ER 05:33
PROVIDERS: Emergency Medicine
DX: A41.9 Sepsis, unspecified organism (principal); R65.20 Severe sepsis without septic shock; N47.1 Phimosis; N39.0 Urinary tract infection, site not specified; I10 Essential (primary) hypertension; I48.91 Unspecified atrial fibrillation; K21.9 Gastro-esophageal reflux disease without esophagitis; E11.43 Type 2 diabetes mellitus with diabetic autonomic (poly)neuropathy; K31.84 Gastroparesis; Z88.8 Allergy status to other drugs, medicaments and biological substances

== ENCOUNTER 2018-09-15 10:40 | Inpatient (IN) | payer OTHER ==
[~2018-09-15] VITALS: Ht 180.3 cm; Wt 84.5 kg
--- NOTE | ~2018-09-15 | HC ---
[facility] [address] [place] [address] CONSULTATION Name: TOAN FISCHER Room #: 214-P [facility] IN M.R.#: [id number] Admission: 09/15/18 ������������������ Attend Phys: Jocelyne Gonzalez MD Discharge: ������������������ Date of : 56 Report #: [id number] THIS REPORT FOR: //name// CC: Jocelyne Gonzalez DATE OF SERVICE: 09/16/2018 REASON FOR CONSULTATION: End-stage renal disease. HISTORY OF PRESENT ILLNESS: The patient is extremely well known to our service, dialyzes at the [facility] and stays at [facility] chronically. He has severe longstanding diabetes with triopathy, the ravages of that disease, has been on dialysis for many years, has severe chronic hypotension which affects his dialysis treatments as well as severe gastroparesis and diabetic enteropathy and recurrent left heel ulcer. The patient dialyzed yesterday. After dialysis, he had an episode where he seemed to lose consciousness, had some shaking reminiscent of seizure. This episode lasted 30 seconds with a period for a couple of minutes after that where he was poorly responsive, but then came to. His initial blood sugar was 49 as measured by the dialysis staff and his blood pressure was low, but he has chronic hypotension. He was admitted here for further observation. PAST MEDICAL HISTORY: Also, he has a history of atrial fibrillation, peripheral arterial disease. He has got a recurrent left heel ulcer, severe peripheral neuropathy. MEDICATIONS: At the facility are listed as vitamin C 500 mg daily, Nephrocaps 1 daily, eyedrops, PhosLo 1 with meals t.i.d., gabapentin 300 mg at bedtime, insulin, Megace 400 mg b.i.d., midodrine 5 mg t.i.d., Protonix 40 mg daily, trazodone 50 mg at bedtime. FAMILY HISTORY: Positive for diabetes, but not renal disease. SOCIAL HISTORY: Lives at the extended care facility. No current cigarette, alcohol or recreational drugs noted. REVIEW OF SYSTEMS: GENERAL: He is in his usual state of health. EYES: Vision is extremely poor, his left eye. ENT: Swallows okay. No mouth sores. ENDOCRINE: Positive for the diabetes. RESPIRATORY: Denies shortness of air or pleuritic pain. CARDIAC: No chest pain or angina. No recent palpitations. GASTROINTESTINAL: He has got nausea, vomiting and diarrhea on an ongoing basis. GENITOURINARY: Makes absolutely no urine. [facility] [address] [place] [address] CONSULTATION Name: TOAN FISCHER Room #: 214-P [facility] IN ..#: [id number] Admission: 09/15/18 ������������������ Attend Phys: Jocelyne Gonzalez MD Discharge: ������������������ Date of : 56 Report #: [id number] NEUROLOGIC: Generalized weakness with contractures, basically is bedridden. SKIN: He has got the recurrent left heel ulcer. PHYSICAL EXAMINATION: GENERAL: This is a chronically ill appearing patient, in no acute distress. He is awake, alert and oriented. SKIN: He has got an ulcer on his right ankle, unstageable ulcer on his right foot and a heel ulcer, which is I believe full thickness with a dressing. SKELETAL: He has got contractures in his hands. HEENT: Extraocular movements are full with the right eye. 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 Mucous membranes moist. Tongue, buccal mucosa benign. NECK: Supple, no carotid bruits. CHEST: Clear to auscultation. HEART: Regular. ABDOMEN: Soft and nontender. EXTREMITIES: Show no edema. NEUROLOGIC: Very little feeling below the mid calf level. LABORATORY DATA: Hemoglobin 11.6. Sodium 135, potassium 3, chloride 97, bicarbonate 26, creatinine 3.1. ASSESSMENT AND PLAN: 1. Post-dialysis episode. This is likely multifactorial. He lost consciousness, likely on the basis of hypoglycemia and low blood pressure. I doubt he had a seizure per se. Evaluation did include a CT of his head, which showed atrophy, but no stroke. He is chronically hypotensive, extremely debilitated and palliation is the best we can hope for in a case like this. 2. End-stage renal disease, on dialysis. We will dialyze tomorrow. 3. Diabetes mellitus with triopathy. 4. Severe diabetic enteropathy and gastroparesis. 5. Left heel ulcer. ��������������������������������������������� ���������������������������������������� By: ��������������������������������������������� 0844 1945 Herbie Ponce MD /nt
--- NOTE | ~2018-09-15 | EEG ---
[facility] [place] [address] ELECTROENCEPHALOGRAM Name: TOAN FISCHER Room #: 214-P ADM IN M.R.#: [id number] ������������������ Admission: 09/15/18 ������������������ Attend Phys: Jocelyne Gonzalez MD Discharge: ������������������ Date of : 56 Report #: [id number] ����������������������������������������������������������������� [id number] THIS REPORT FOR: //name// CC: Jocelyne Gonzalez DATE OF SERVICE: 09/18/2018 This patient is being evaluated for altered mental status and the possibility of seizure. EEG was done by placing the electrodes by standard 10-20 system of electrode placement. Both referential and sequential montages were used for recording. Initial part of the EEG was intermixed with a lot of artifact and is difficult to interpret. But in general, the patient's EEG background activity is about 11 Hz and 40 microvolt. At one time the patient did become drowsy and that is associated with bilateral slowing and a few vertex sharp waves. Photic stimulation was unremarkable. Throughout the record no active epileptiform activity was noticed. IMPRESSION: This patient's electroencephalogram is unremarkable. No active epileptiform activity was noticed during this record. It might be mentioned, electroencephalogram can be normal in a patient with seizure disorder. ���������������������������������������� ���������������������������������������� By: ��������������������������������������������� [id number] Suleman Ellis MD /nt
--- NOTE | ~2018-09-15 | EEG ---
[facility] [place] [address] ELECTROENCEPHALOGRAM Name: TOAN FISCHER Room #: 214-P [facility] IN M.R.#: [id number] ������������������ Admission: 09/15/18 ������������������ Attend Phys: Jocelyne Gonzalez MD Discharge: ������������������ Date of : 56 Report #: [id number] ����������������������������������������������������������������� [id number] THIS REPORT FOR: //name// CC: Jocelyne Gonzalez DATE OF SERVICE: 09/16/2018 This patient is being evaluated for the possibility of seizure. EEG was done by placing the electrodes by standard 10-20 system of electrode placement. Both referential and sequential montages were used for recording. Background activity in this patient's EEG is about 11 Hz and 40 microvolt. The patient became drowsy and that was associated with bilateral slowing and vertex sharp waves. Photic stimulation was unremarkable. Throughout the record, no active epileptiform activity was noticed. IMPRESSION: This patient's EEG is unremarkable and does not demonstrate any clear-cut epileptiform activity. ���������������������������������������� ���������������������������������������� By: ��������������������������������������������� 1102 [id number] Suleman Ellis MD /nt
--- NOTE | ~2018-09-15 | D ---
[facility] [place] [address] [place] [address] DISCHARGE SUMMARY Name: TOAN FISCHER Room #: 214-P [facility] IN .R.#: [id number] Admission: 09/15/18 ������������������ Attend Phys: Jocelyne Gonzalez MD Discharge: 09/18/18 ������������������ Date of : 56 Report #: [id number] THIS REPORT FOR: //name// CC: Jocelyne Gonzalez MD ____, [facility] DATE OF SERVICE: 09/18/2018 SUMMARY OF HISTORY AND PHYSICAL: The patient had a "30-minute seizure" or "30 second shakes" after dialysis and was brought to the Emergency Room. For this reason, he was admitted. Please note that variations in the description of the actual event are listed below; Dr. Ponce of the Dialysis/Nephrology servcie actually talked to the staff that were there. Information from the paramedics showed that his blood sugar was 55 when checked by the dialysis staff. He was given glucose tablets by the staff. He was confused when he came to the Emergency Room, but denied any complaints. Apparently, there were shaking movements. He did have some confusion afterwards, but not that of an ordinary postictal state after a 30-minute long seizure. The actual consult says that he did not have 30 minutes of bonafide tonic-clonic seizure movements. His blood pressure was also low at 95/76 in the Emergency Room. He is known to have chronic severe hypotension that affects his dialysis treatments and is well known to the Nephrology service for his severe long-standing diabetes with broad-spectrum severe complications. Dr. Ponce was able to talk with the dialysis staff directly and reports in his consultation that the patient had an episode where he seemed to lose consciousness and had some shaking reminiscent of his seizure. Dr. Ponce obtained the information that the episode lasted 30 seconds with a period of a couple of minutes afterwards where he was poorly responsive, but then he regained consciousness. He reports a blood sugar of 49 measured by the dialysis staff and that his blood pressure was low, but that his blood pressure is always low. On Dr. Ponce's examination, he was at baseline. HOSPITAL COURSE: He was admitted 09/15 and returned to baseline. He did have an episode of right upper quadrant pain and nausea that he says was new for him on 09/17/2018. However, the episode resolved overnight and the next day, on my evaluation, his abdominal examination was entirely normal. His bowel sounds were normal. The involved right upper quadrant area was soft and nontender and he was eating his lunch hungrily while on dialysis, being spoon-fed by the dialysis nurse. Amylase and lipase were normal and his other laboratory was at baseline. He was seen in Neurology consultation by Suleman Ellis MD. Dr. Ellis noted that the CT scan of his head did not show any definite changes other than the [address] [address] DISCHARGE SUMMARY Name: TOAN FISCHER Room #: 214-P [facility] IN M.R.#: [id number] Admission: 09/15/18 ������������������ Attend Phys: Jocelyne Gonzalez MD Discharge: 09/18/18 ������������������ Date of : 56 Report #: [id number] more than expected atrophy for his age and vague areas of low density white matter changes more in the left frontal region (microvascular changes possibly), and that there were hypoglycemia and hypotension. Dr. Ellis recommended MRI scan of the brain and explained the reasons for it to the patient. The patient refused to do an MRI because he becomes too severely claustrophobic even with sedation. Despite explination, the patient refused an MRI, so it was not performed. An EEG was normal on admissison, and was repeated later after overnight sleep deprivation for completeness. It was also normal. Dr. Dueñas noted that this was his second admission (first 06/18/18) for mental status changes related to episodes of shaking that were thought to be a seizure activity also in the immediate post-dialysis timeframe. After that admission, midodrine was started then for his low blood pressure. He was also seen by Dr. Dallin Lebron of the wound care service and the treatments directed at several ulcers, stage 3 of the left heel, chronic ulcer of the right foot. The thick callus was debrided by Dr. Lebron and special dressings were ordered as well as peripheral unloading boots and nutritional supplements. On 09/17/2018, he was unable to undergo scheduled dialysis because of a clotted access. He underwent a thrombectomy of the left upper extremity brachial artery to cephalic vein arteriovenous conduit. He underwent an angioplasty of a 70% stenosis of the peripheral left subclavian vein. DISCHARGE DIAGNOSES: 1. Multifactorial shaking episode in the post-dialysis time period related to low blood pressure and blood sugar of 49. This is his second such episode. 2. Not likely to have actually had an epileptic seizure. 3. Long-standing end-stage renal disease requiring hemodialysis. 4. Occluded arteriovenous fistula with vascular stenosis from which the clot was removed and the stenosis was angioplastied. 5. Long-standing diabetes with nephropathy, retinopathy, neuropathy and gastroenteropathy. 6. Muscular contractures and atrophy from long-standing illness. 7. Gastroparesis with chronic symptom complex: Nausea/vomiting/uncontrolled diarrhea/uncontrolled constipation. 8. Left heel and right foot plantar pressure ulcers. 9. He is blind in his left eye. 10. History of atrial fibrillation. 11. Peripheral artery disease. 12. Severe peripheral neuropathy. 13. Muscular flexion contractions. 14. Other medical problems as in the history and physical. PLAN: 1. Dr. Bee discussed lengthening his dialysis treatment to 4 hours with him [facility] [address] [place] [address] DISCHARGE SUMMARY Name: AALIYAHTOAN Room #: 214-P [facility] IN ..#: [id number] Admission: 09/15/18 ������������������ Attend Phys: Jocelyne Gonzalez MD Discharge: 09/18/18 ������������������ Date of : 56 Report #: [id number] and this was done on the day of discharge, 09/18/2018. He tolerated this well and was able to eat substantial lunch during the dialysis session. Dr. Gonzalez increased his pantoprazole from 40 mg once a day to 40 mg twice a day because of his right upper quadrant nausea and vomiting symptoms from 09/17/2018. He has urea cream/lotion to be applied to his freshly debrided foot ulcers. He is to get PRAFO unloading boots to take the weight off of the ulcers on his feet. 2. Should nausea return, metoclopramide 5 mg four times daily can be added, but was not necessary on this admission. 3. He is to follow up with Dr. Lebron in the wound clinic. 4. Otherwise, his home medications and regimen are unchanged: PhosLo 3 times daily, folic acid 1 mg daily, gabapentin 300 mg at bedtime, Xalatan eyedrops twice daily, timolol 0.25% eyedrop twice daily, Azopt eyedrops 1 twice daily, trazodone 50 mg at bedtime, acetaminophen 500 mg every 4 hours as needed. For bowel control, he has loperamide 2 mg as needed for loose stools and diphenoxylate (Lomotil) also for diarrhea. There is nothing for constipation. 4. Continued: He has Nephrocaps softgel, Peridex oral mouthwash twice daily, ofloxacin eyedrops 4 times daily, artificial tears 4 times daily, vitamin C 500 mg once daily, bupropion SR 150 mg in the morning at 9:00 once daily, ondansetron 4 mg every 4 hours as needed for nausea and vomiting. Midodrine 5 mg at 6:00, noon, and 6:00 p.m., dimethicone cleanse and protect tablets orally once daily, dorzolamide eyedrops daily at 9:00 in the morning, Lovenox 30 mg at bedtime, sliding scale lispro insulin before meals and at bedtime, Megace 400 mg orally twice daily, Pred Forte 1% eyedrops daily, Saccharomyces boulardii (Florastor) 250 mg twice daily, silver sulfadiazine cream topically twice daily to his leg ulcers. Urea cream daily to his leg ulcers as well as his legs. Laboratory pending at the time of dictation: Heel ulcer with a Gram stain showing no white blood cells and no organisms, culture pending. Additional Radiology: Carotid Dopplers showed less than 60% narrowing of moderate scattered plaque in both the right and left carotid arteries. Vertebral flow was antegrade. 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 No specific other abnormalities were identified. There was " high density structure, most likely surgical scar near the left superolaterally" in the report, that was not seen by Dr. Mcmillan on review 09-19-18. [address] [address] DISCHARGE SUMMARY Name: TOAN FISCHER Room #: 214-P [facility] IN [facility]#: [id number] Admission: 09/15/18 ������������������ Attend Phys: Jocelyne Gonzalez MD Discharge: 09/18/18 ������������������ Date of : 56 Report #: [id number] Albumin was 2.7 on admission, qualifying for severe malnutrition. WBCs were 6600 with a hemoglobin of 11.6. For this, usually hemoglobin is being slightly higher at 12.0. Stool for C. diff was negative. A Groves catheter was placed to collect the urine. This evaluated for urinary tract infection. He was anuric while in the hospital and says that sometimes he does make urine, but not often, so urinalysis was not obtained. ��������������������������������������������� ���������������������������������������� By: ��������������������������������������������� 2219 [id number] Cesar Garces MD /nt
--- NOTE | ~2018-09-15 | HC ---
[facility] [place] [address] CONSULTATION Name: TOAN FISCHER Room #: 214-P [facility] IN ..#: [id number] Admission: 09/15/18 ������������������ Attend Phys: Jocelyne Gonzalez MD Discharge: ������������������ Date of : 56 Report #: [id number] THIS REPORT FOR: //name// CC: Jocelyne Gonzalez DATE OF SERVICE: 09/16/2018 HISTORY OF PRESENT ILLNESS: This is a 58-year-old male patient who was evaluated by me for an episode of seizure. The patient indicates he does not remember anything about that. He apparently had tonic-clonic movements. Duration is not clear, initially somebody said 30 minutes but I cannot confirm that. What his blood sugar was at that time is also not clear. One of the reports I get from the nurses was that the blood sugar was in 30s at that time. He does not remember the event. He was postictal, but then he returned back to his baseline. He indicates he did not have this kind of episode before. REVIEW OF SYSTEMS: Positive for end-stage renal disease. One time, he had head injury some time ago. He has a history of diabetes. He does not know if his blood sugar fluctuates or not. He has pretty significant problem with the lower extremities. One of the records says AFib, but I do not get any confirmation from him and his EKG here does not appear to be indicating atrial fibrillation. The patient does not know anything about that. This was his relevant 14-point review of systems. PAST MEDICAL HISTORY: Positive for end-stage renal disease and the patient is on dialysis. FAMILY HISTORY: Negative. SOCIAL HISTORY: He lives in [facility]. PHYSICAL EXAMINATION: NEUROLOGIC: Indicates he is alert, responsive, oriented. He can follow simple commands. He feels back to his baseline. His speech looks unremarkable. Cranial nerve examination 2-12 indicates has blindness, but that is his baseline. Neuromuscular examinations indicate that a profound weakness in both lower extremities and a problem with right shoulder. His position sense is absent in the lower extremities. His tone is diminished in the lower extremities. His reflexes could not be elicited there. His wolpaa-xc-ipys in the arm looks okay. for his weakness, I could not look at the fundus. EXTREMITIES: I could not feel the pulses and there is no edema, cyanosis or jaundice. CARDIAC: Appears noncontributory. RESPIRATORY: No respiratory difficulty or rhonchi was noticed. VITAL SIGNS: His blood pressure is running low at 84/44. His pulse is 88, respiration is 20, temperature is 98.2. [address] [address] CONSULTATION Name: TOAN FISCHER Room #: [facility] IN ..#: [id number] Admission: 09/15/18 ������������������ Attend Phys: Jocelyne Gonzalez MD Discharge: ������������������ Date of : 56 Report #: [id number] LABORATORY DATA: His white count is normal. His sodium and potassium are somewhat diminished. Blood sugar has been fluctuating. He did have a CT scan of the head, which does not show any acute changes. IMPRESSION: The episode he has was most likely related to his systemic problem. He had hypoglycemia. He is hypotensive here, so episode was most likely related to it. It would be desirable to do an MRI of the brain to make sure there is no etiology and I recommended that to him. He said he will not do MRI because he is too claustrophobic to even try that with sedation. He understands all those but he will not do an MRI, so we will hold that. In these circumstances, I will suggest doing an EEG. If EEG does not show any seizure activity for which there is a good chance the main management is going to be managing his systemic problems and try to correct his blood sugar as well as maintain his blood pressure. We will follow up this patient only if his EEG is abnormal, otherwise nothing specific to add. Thank you very much for this referral and if you have any question, please feel free to contact me. ��������������������������������������������� ���������������������������������������� By: ��������������������������������������������� 0911 51 Suleman Ellis MD /nt
[2018-09-15 10:41] VITALS: BP 130/47
[2018-09-15 10:57] LABS: ABSOLUTE NEUTROPHILS 3.9 thou/uL (1.4-8.2); EOSINOPHILS 0.4 % (0.0-3.0); HEMATOCRIT 36.2 % (42.0-52.0); HEMOGLOBIN 11.6 gm/dL (14.0-18.0); LYMPHOCYTES 27.8 % (24.0-44.0); MCH 29.6 pg (26.0-34.0); MCHC 32.2 g/dL (28.0-37.0); MCV 91.9 fL (80.0-100.0); MONOCYTES 10.7 % (1.0-8.0); PLATELET COUNT 216 thou/uL (150-400); POLYS 60.1 % (36.0-66.0); RBC 3.93 mil/uL (4.50-6.00); RDW 16.2 % (10.5-14.5); WBC 6.6 thou/uL (4.0-11.0)
[2018-09-15 11:06] LABS: CALCIUM 8.5 mg/dL (8.5-10.1); CREATININE 3.1 mg/dL (0.7-1.3)
[2018-09-15 11:12] LABS: ALBUMIN 2.7 g/dL (3.4-5.0); TOTAL BILIRUBIN 0.7 mg/dL (<0.1-1.0); TOTAL PROTEIN 7.9 g/dL (6.4-8.2)
--- NOTE | 2018-09-15 11:38 | EKG ---
[place] [address] [address] [facility] [place] [address] ELECTROCARDIOGRAM REPORT Name: TOAN FISCHER [facility] [id number] ������������������ Admission: 09/15/18 ������������������ Attend Phys: Discharge: ������������������ Date of : 56 Report #: [id number] ����������������������������������������������������������������� [id number] THIS REPORT FOR: //name// [facility] ED Test Date: 2018-09-15 Test Time: 10:55:40 Pat Name: TOAN FISCHER Department: Room: Gender: M Break Out Man: ESTER : 1960 Requested By: Roberta Hough Order Number: [id number] MD: Mehran Cobb Measurements Intervals [place] Rate: 97 P: 31 [place]: 194 QRS: 16 QRSD: 86 T: 79 QT: 380 QTc: 483 Interpretive Statements Sinus rhythm Abnormal R-wave progression, early transition Minimal ST depression, lateral leads Borderline prolonged QT interval Compared to ECG 08/12/2018 05:56:45 Sinus tachycardia no longer present ST (T wave) deviation still present Electronically Signed On 09-15-2018 11:38:30 CDT by Mehran Cobb [email or web address] ��������������������������������������������� <ELECTRONICALLY SIGNED> ���������������������������������������� By: Mehran Cobb MD ��������������������������������������������� 09/15/18 1138 1055 1055 Mehran Cobb MD /HUONG
[2018-09-15] MEDS ORDERED: CIPROFLOXACIN250 M2 PO (13:49)
[2018-09-15] MEDS ORDERED: DORZOLAMIDE 2%10 ML INTRAOCULR (13:50)
[2018-09-15] MEDS ORDERED: [UNRECOGNIZED DRUG - OTHER] PO (13:50)
[2018-09-15] MEDS ORDERED: ENOXAPARIN30 MG/0.1 SUBQ (13:51)
[2018-09-15] MEDS ORDERED: HUMALOG100 UNIT/1 SUBQ (13:52)
[2018-09-15] MEDS ORDERED: MEGESTROL400 MG/11 PO (13:53)
[2018-09-15] MEDS ORDERED: FLORASTOR250 MG PO (13:54)
[2018-09-15] MEDS ORDERED: PRED FORTE 1% EY5 M1 INTRAOCULR (13:54)
[2018-09-15] MEDS ORDERED: SSD CREAM 1% 5050 GM TOP (13:55)
[2018-09-15 13:59] VITALS: BP 112/56
[2018-09-15 14:54] VITALS: BP 106/55
[2018-09-15 15:16] VITALS: BP 111/39
[2018-09-15 16:00] VITALS: BP 111/39
--- NOTE | 2018-09-15 17:08 | NUR ---
Case discussed with the care team and chart reviewed. 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 He is w/c bound and gets his dialyisis onsite at [facility]. He was brought in today from dialyisis due to a seizure. Pt's sister Rima noted to be his dpoa. Message left for [facility] admissions requesting a copy of his dpoa paperwork and to confirm they are holding his bed. Auto Fleet Maintenance Manager spoke with his sister Rima and she is aware that he is here. DC plan is for him to return to ltc at [facility]. Will follow.
--- NOTE | 2018-09-15 19:18 | NUR ---
PT ARRIVED TO FLOOR FROM ED AT 1505 IN STABLE CONDITION.DR PAULSON NOTIFIED ABOUT PT ADMITTED TO FLOOR,HE ROUNDED ON PT AND ORDER NOTED.ADMISSION HX, ASSESSMENT AND CAREPLAN COMPLETED.RECEIVED CALL FROM PT'S SISTER,UPDATES GIVEN.BLOOD SUGAR AT DINNER WAS 65.APPLE JUICE 12OML GIVEN.BLOOD SUGAR RECHECK IN 30MINUTES WAS OVER 100.RN FED PT AT DINNER.PT ONLY TOOK 2BITES.REPORT OFF TO NOC RN.
[2018-09-15 19:59] VITALS: BP 141/51
[2018-09-16] VITALS (9 sets, daily range): BP systolic 69–95; BP diastolic 22–54
--- NOTE | 2018-09-16 05:04 | NUR ---
ASSUMED PT'S CARE AT 1915; PT. ON BED; SLEEPING; AT 1950 PT. REQUESTED TO BE TURNED ON HIS R. SIDE DUE TO BUTTOCKS PAIN; PT. TURNED; REQUESTED PRN PAIN MEDICATION; MEDICATION GIVEN; PAIN RE-ASSESSMENT PT. SLEEPING; DURING ASSESSMENT PT. ALERT TO PERSON & PLACE; NOT TIME; ABLE TO ANSWER QUESTIONS; AT MIDNIGHT BP 95/43; PT. SLEEPING; BP RE-ASSESSED AT 0130 80/25 (39); STAFF PHYSICAL THERAPIST NOTIFIED; ORDERS RECEIVED; BP REASSESSMENT AFTER BOLUS AT 0253 95/22 (41); STAFF PHYSICAL THERAPIST NOTIFIED; ORDERS RECEIVED; MIDODRINE GIVEN EARLY; AT 0400 BP RE-ASSESSED 89/26; STAFF PHYSICAL THERAPIST NOTIFIED; ORDERS RECEIVED; GIVEN SECOND BOLUS; WILL KEEP MONITORING; NO C/O HEADACHE OR DIZZINESS; ABLE TO REST THROUGH THE NIGHT; AT 0300 TRIED STRAIGHT CATH IN ORDER TO OBTAIN URINE SAMPLE; PT. NOT ABLE TO TOLERAT IT; NO URINE SAMPLE COLLECTED; ASSESSMENT CHARGED; FOLLOWIN POC; WILL PASS ON REPORT.
--- NOTE | 2018-09-16 10:11 | NUR ---
Assess due to RD consult received. Pt from nursing facility hx ESRD/dialysis, dm, [facility]. Wound care also consulted for bilateral heel ulcers, present upon admit. Visit at breakfast, good appetite demonstrated, asking repeatedly for foods not allowed on renal diet. Labs reviewed, K is low so will allow east timorese fries for today. BG well controlled. Appears pt may have had some progressive wt loss past 1-2 years ~15 lb, not significant. Has order for megace-may be able to discontinue if appetite adequate unless used for alternative reason. Also on folic acid, mvi. Food preferences obtained. Low nutrition risk
--- NOTE | 2018-09-16 10:27 | NUR ---
pt's AD/DPOA for health care was rec'd from [facility] and a copy was placed on his medical record.
--- NOTE | 2018-09-16 14:53 | NUR ---
FAXED CLINICAL UPDATE TO [facility] WITH CELESTE OF UPDATE FAXED. DCP TO FOLLOW.
--- NOTE | 2018-09-16 15:44 | NUR ---
WOUND CONSULT; ROUNING WITH DR CHELO PALM TODAY. WOUNDS WERE IDENTIFIED TO THE LEFT HEEL 1.[address] PALM REMOVED THE CALLOUS TO THE HEELS BILATERALLY WITH A #15 SCALPLE NO BLEEDING WAS CREATED. RECOMMEDATIONS; APPLY AQUACEL AG TO THE LEFT HEEL WOUND COVER WITH FOAM DAILY/PRN. DISCUSSED WITH MANAGER PRODUCTION
--- NOTE | 2018-09-16 17:41 | NUR ---
PT CARE ASSUMED APPROX 0700. PT ALERT AND ORIENTED X4. DENIES PAIN AND SOA. PT HYPOGLYCEMIC AND HYPOTENSIVE THIS AM. PROTOCOL FOLLWED. PT BS REMAINED LOW. DR DIANE WAS ON UNIT AND MADE AWARE. DR DIANE TOLD THIS NURSE THAT CURRENT BP AND BS WERE PT'S BASELINE AND TO ONLY INTERVENE IF PT WAS SYMPTOMATIC. PT HAS NOT BEEN SYMPTOMATIC THIS SHIFT. PT WAS EDUCATED ON WHAT SYMPTOMS TO REPORT WHILE NURSING ALSO FREQUENTLY ASSESSING PT FOR SYMPTOMS. BS AND BP WNL AT THIS TIME. VS OTHERWISE STABLE. PT TOLERATING O2 WEAN. 3L NC AT THIS TIME. TURNING Q2 HRS AND PRN. APPETITE POOR. NO URINE MADE THIS DAY. PT NOTED TO BE OLIGURIC. HD ORDERED FOR TOMORROW. DPOA AND 2ND SISTER CALLED AND BOTH RECEIVED CLINICAL UPDATES. PT PASSCODE WAS PROVIDED. BOTH DENY QUESITONS AND CONCERNS REGARDING POC. PT DOES ALSO. WOUND CARE TEAM EVALUATED PT THIS SHIFT AND NEW ORDERS FOR HEELS AND FEET. PT TOLERATING POC AT THIS TIME.
--- NOTE | 2018-09-17 04:42 | NUR ---
RECEIVED PT'S CARE AT 1910; PT. ON BED; AOX4; WATCHING TV; PER NURSING REPORT; PT. HAD TWO LIQUIDS STOOLS EARLY ON THE DAY; HS BS 41; SBP ON THE 70s; NO C/O DIZZINESS OR HEADACHE; PER NOTES PT. HAS CHRONIC HYPOTENSION & HYPOGLYCEMIA; PER ORDERS NOT TO TREAT UNLESS SYMPTOMATIC; ICE CREAM GIVEN; BS REASSESSMENT ABOVE 100; DURING ASSESSMENT PT. ST. NOT WANTING ANY SHOT ON BELLY; EDUCATED ABOUT THE NEED OF BLOOD THINNERS; ST. UNDERSTANDING; NO C/O PAIN; HAD ONE SMALL LIQUID/ MOCOUS BM; THIRD LOOSE STOOL WITHIN 24H; PER PROTOCOL PT. PUT ON ISOLATION; STOOL SAMPLE SEND TO LAB; BED CHANGED; TURNED ON HIS RIGHT SIDE; REFUSED TO BE ON HIS LEFT SIDE; ELEVATED HEELS ON PILLOW; YELLOW SUCKS PUT ON; PT. ABLE TO REST THROUGH THE NIGHT WITH EYES CLOSE; EARLY ON THE MORNING SBP ON THE 90s; ASSESSMENT CHARGED; FOLLOWING POC; WILL KEEP MONITORING; WILL PASS ON REPORT.
[2018-09-17 05:09] VITALS: BP 96/56
[2018-09-17 08:04] VITALS: BP 91/31
--- NOTE | 2018-09-17 14:32 | NUR ---
FAXED WOUND CARE NOTES TO [facility] SPOKE WITH CELESTE IN ADM SHE RECEIVED UPDATE ALSO LET HER KNOW THAT POSS DC LATER TODAY OR OVER WEEKEND. IF DISCHARGED AFTER HRS OR OVER WEEKEND FAX DC ORDERS/SUMMARY TO [phone] AND CALL REPORT TO [phone]. TO SET UP TRANSPORT CALL CELESTE AT [phone].
--- NOTE | 2018-09-17 15:36 | NUR ---
WOUND CARE FOLLOW UP; ROUNDING WITH DR PALM AND JAELYN NEON SIGN SERVICER. ASSESSED THE HEELS BILATERALLY. THE LEFT HAS PURULENT DRAINAGE THAT WAS CULTURED TODAY. RECOMMENDATIONS; CONTINUE CURRENT PLAN. DISCUSSED WITH RN
[2018-09-17 16:01] VITALS: BP 103/55
--- NOTE | 2018-09-17 18:25 | NUR ---
ASSESSMENT CHARTED, VSS, ALERTED AND ORIENTED, UNABLE TO DIALIZE TODAY, LEFT SHUNT WAS CLOTTED, PATIENT HAD PROCEDURE TO OPEN SHUNT. NO COMPLAINTS OF PAIN, WILL CONTINUE TO MONITOR
[2018-09-17 19:38] VITALS: BP 112/44
[2018-09-18 05:21] VITALS: BP 116/33
[2018-09-18 08:15] VITALS: BP 90/40
--- NOTE | 2018-09-18 08:59 | NUR ---
RECEIVED PT'S CARE AT 1910; PT. AOX4; ON BED; DURING ASSESSMENT NO C/O PAIN; HAD TWO MALODOUROS BM DURING THE NIGHT; TURN ON HIS SIDE PER REQUESTED; LABS NOT ABLE DRAW EARLY ON THE MORNING; WILL DRAW DURING DIALYSIS; PASSED ON REPORT; ABLE TO REST A FEW HOURS PER ORDER; PARTIAL BED BAD GIVEN; COMPLETE LINENS CHANGED; ASSESSMENT CHARGED; FOLLOWING POC; PASSED ON REPORT.
[2018-09-18 09:49] LABS: ALBUMIN 2.2 g/dL (3.4-5.0); CALCIUM 8.7 mg/dL (8.5-10.1); POTASSIUM 3.6 mmol/L (3.5-5.1); TOTAL BILIRUBIN 0.2 mg/dL (<0.1-1.0); TOTAL PROTEIN 6.8 g/dL (6.4-8.2)
[2018-09-18 10:03] LABS: CREATININE 8.3 mg/dL (0.7-1.3)
[2018-09-18 11:45] VITALS: BP 130/35
[2018-09-18] MEDS ORDERED: PROTONIX40 M1 PO (14:45)
[2018-09-18] MEDS ORDERED: UREA198 GM TOP (15:06)
[2018-09-18 15:50] VITALS: BP 106/79
--- NOTE | 2018-09-18 19:56 | NUR ---
ASSUMED CARE OF PT AT 0700. ASSESSMENT CHARTED. A&0,X4. HX SLOW SPEECH NOTED. DENIES PAIN. DIALYSIS TODAY. VSS. NEW DISCHARGE ORDERS. REPORT CALLED TO [facility]. SISTER (DPOA) NOTIFIED. MEDICAL TRANSPORT ARRIVED AT 18:30 TO PICK PT UP. PT LEFT IN STABLE CONDITION VIA CART AT 18:45.
--- NOTE | 2018-09-19 15:59 | HC ---
[facility] [place] [address] CONSULTATION Name: TOAN FISCHER Room #: 214-P [facility] IN ..#: [id number] Admission: 09/15/18 ������������������ Attend Phys: Jocelyne Gonzalez MD Discharge: 09/18/18 ������������������ Date of : 56 Report #: [id number] THIS REPORT FOR: //name// CC: Jocelyne Gonzalez DATE OF SERVICE: 09/16/2018 CHIEF COMPLAINT: Left heel and plantar right foot ulceration. HISTORY OF PRESENT ILLNESS: This is a 58-year-old male patient, who was admitted to the hospital with some shivering or shaking, possibly a seizure. He apparently was not postictal. It is unclear as to what the event and when exactly was. He is noted to have ulcerations on both feet. I have been asked to see him with regard to wound care. PAST MEDICAL HISTORY: Positive for end-stage renal disease, requiring hemodialysis. He has history of diabetes mellitus, gastroparesis, cataracts, gastroesophageal reflux disease, glaucoma, atrial fibrillation, hypertension. MEDICATION ALLERGIES: INCLUDE LYRICA. CURRENT MEDICATIONS: Include vitamin C, Wellbutrin, Zofran, Lomotil, folic acid, Neurontin, timolol, Azopt, Desyrel, Cipro, Hunter, Lovenox, insulin, Megace, Pred Forte eyedrops, Florastor, Silvadene cream, PhosLo, Protonix, Xalatan, Imodium, Nephrocaps. SOCIAL HISTORY: Negative for current alcohol or tobacco use. 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 FAMILY HISTORY: Noncontributory. REVIEW OF SYSTEMS: CONSTITUTIONAL: The patient denies fever, chills or weight loss. NEUROLOGICAL: The patient denies right-sided weakness, difficulty using his right hand. ENT: The patient denies earache, nasal drainage or sore throat. CARDIOVASCULAR: The patient denies chest pain or palpitations. PULMONARY: The patient denies cough or shortness of breath. GASTROINTESTINAL: The patient denies nausea or abdominal pain. ORTHOPEDIC: The patient complains of severe knee pain. States he wishes he could stand, but cannot do so due to the pain in both of his knees. Other systems in a 14-point review of systems are negative. PHYSICAL EXAMINATION: VITAL SIGNS: At this time include temperature 36.6, pulse 81, respiratory rate [facility] [address] [place] [address] CONSULTATION Name: TOAN FISCHER Room #: 214-P [facility] IN ..#: [id number] Admission: 09/15/18 ������������������ Attend Phys: Jocelyne Gonzalez MD Discharge: 09/18/18 ������������������ Date of : 56 Report #: [id number] of 18, blood pressure of 73/54. GENERAL: This is a chronically ill-appearing male patient, who appears to be thin, but in no distress. HEENT: Head normocephalic. Nose and throat clear. NECK: Supple. LUNGS: Diminished. HEART: Irregular without murmur. ABDOMEN: Soft. EXTREMITIES: Demonstrate some contractures of both knees as well as limited range of motion of his right upper extremity. He has an ulceration on the plantar aspect of his right foot. This appears that it may be a previous surgical wound. It is unclear and the patient cannot give me specific details as to its origin. There is some crusting and callus that is peeled away, revealing mostly intact skin beneath. There is a small ulceration on the left posterior heel with a large amount of dried eschar and callus, a lot of which is peeled away. There is a small amount of purulent discharge present. Otherwise, there is clean granulation tissue. No exposed bone to palpation at this time. NEUROLOGIC: The patient is alert. He is oriented. He has limited motion on the right side. LABORATORY DATA: Include sodium 135, potassium 3.0, chloride 97, CO2 of 26, BUN 7, creatinine 3.1, glucose 91. Total protein 7.9, albumin 2.7. White blood cell count 6.7 with a hemoglobin 11.6. CLINICAL IMPRESSION: 1. Unstageable pressure ulceration to the right heel and stage 3 pressure ulceration to the left heel. 2. Diabetes mellitus. 3. Possible peripheral arterial disease. 4. End-stage renal disease, requiring dialysis. 5. Venous stasis dermatitis in bilateral lower extremities. RECOMMENDATIONS: At this point in time, we will recommend urea cream or AmLactin to the crusted thick areas on the bilateral heels, AmLactin lotion to his lower legs, silver alginate and Bordered Foam to the left posterior heel. I recommend PRAFO boots while in bed. Aggressive nutritional support. Continuation of current medications. I appreciate being asked to see him in consultation. ��������������������������������������������� <ELECTRONICALLY SIGNED> ���������������������������������������� By: Dallin Lebron MD ��������������������������������������������� 09/19/18 1559 1612 0210 Dallin Lebron MD /nt
== END 2018-09-18 18:57 | DRG 252 ==
LOC: ER 10:40 → 2N 14:59
PROVIDERS: Physician Assistant; ADMIT Internal Medicine
DX: T82.868A Thrombosis due to vascular prosthetic devices, implants and grafts, initial encounter (principal); L89.623 Pressure ulcer of left heel, stage 3; N18.6 End stage renal disease; E43 Unspecified severe protein-calorie malnutrition; I12.0 Hypertensive chronic kidney disease with stage 5 chronic kidney disease or end stage renal disease; I95.9 Hypotension, unspecified; I48.91 Unspecified atrial fibrillation; H40.9 Unspecified glaucoma; K21.9 Gastro-esophageal reflux disease without esophagitis; E87.6 Hypokalemia; E11.51 Type 2 diabetes mellitus with diabetic peripheral angiopathy without gangrene; E11.42 Type 2 diabetes mellitus with diabetic polyneuropathy; E11.43 Type 2 diabetes mellitus with diabetic autonomic (poly)neuropathy; K31.84 Gastroparesis; I87.2 Venous insufficiency (chronic) (peripheral); H54.62 Unqualified visual loss, left eye, normal vision right eye; E11.319 Type 2 diabetes mellitus with unspecified diabetic retinopathy without macular edema; M62.40 Contracture of muscle, unspecified site; K59.00 Constipation, unspecified; E11.621 Type 2 diabetes mellitus with foot ulcer; D63.1 Anemia in chronic kidney disease; E11.22 Type 2 diabetes mellitus with diabetic chronic kidney disease; E11.649 Type 2 diabetes mellitus with hypoglycemia without coma; Z98.42 Cataract extraction status, left eye; Z98.41 Cataract extraction status, right eye; Z68.26 Body mass index [BMI] 26.0-26.9, adult; Z88.8 Allergy status to other drugs, medicaments and biological substances; Z83.3 Family history of diabetes mellitus; Z99.2 Dependence on renal dialysis
CPT/HCPCS: 10081; 32100

== ENCOUNTER 2018-10-05 15:01 | Inpatient (IN) | payer OTHER ==
[~2018-10-05] VITALS: Ht 167.6 cm; Wt 82.6 kg
[~2018-10-05 15:01] MED LIST changes: +CIPROFLOXACIN250 M2 PO; +DORZOLAMIDE 2%10 ML INTRAOCULR; +ENOXAPARIN30 MG/0.1 SUBQ; +FLORASTOR250 MG PO; +HUMALOG100 UNIT/1 SUBQ; +MEGESTROL400 MG/11 PO; +PRED FORTE 1% EY5 M1 INTRAOCULR; +PROTONIX40 M1 PO; +SSD CREAM 1% 5050 GM TOP; +UREA198 GM TOP; +[UNRECOGNIZED DRUG - OTHER] PO
[2018-10-05 15:02] VITALS: BP 88/33
[2018-10-05 15:35] LABS: BASOPHILS 0.3 % (0.0-2.0); EOSINOPHILS 0.2 % (0.0-3.0); HEMATOCRIT 34.3 % (42.0-52.0); HEMOGLOBIN 10.9 gm/dL (14.0-18.0); LYMPHOCYTES 6.3 % (24.0-44.0); MCH 28.7 pg (26.0-34.0); MCHC 31.8 g/dL (28.0-37.0); MCV 90.5 fL (80.0-100.0); MONOCYTES 0.8 % (1.0-8.0); PLATELET COUNT 123 thou/uL (150-400); POLYS 92.4 % (36.0-66.0); RBC 3.79 mil/uL (4.50-6.00); RDW 15.8 % (10.5-14.5); WBC 6.5 thou/uL (4.0-11.0)
[2018-10-05 15:47] LABS: ANION GAP 16 mmol/L (7-16); BUN 53 mg/dL (7-18); CHLORIDE 109 mmol/L (98-107); CO2 20 mmol/L (21-32); CREATININE 10.4 mg/dL (0.7-1.3); GLUCOSE 87 mg/dL (74-106); POTASSIUM 4.9 mmol/L (3.5-5.1); SODIUM 145 mmol/L (136-145)
[2018-10-05 15:57] LABS: ALBUMIN 2.2 g/dL (3.4-5.0); LIPASE 66 U/L (73-393); SGOT 22 U/L (15-37); SGPT 16 U/L (30-65); TOTAL BILIRUBIN 0.6 mg/dL (<0.1-1.0); TOTAL PROTEIN 7.5 g/dL (6.4-8.2); TROPONIN-I <0.06 ng/mL (<0.06)
--- NOTE | 2018-10-05 16:52 | NUR ---
VASCULAR ACCESS TEAM CONSULTED FOR CVAD, PT REFUSED [facility] STATES YOU ARE NOT TOUCHING MY NECK AND I CAN REFUSE. DR SANCHES NOTIFIED OT PT'S DECISION.
[2018-10-05 18:14] VITALS: BP 87/37
--- NOTE | 2018-10-05 18:51 | NUR ---
REC PT FROM ED AT 1845, GOT COMFORTABLE IN BED, HUNG IV ABX THAT CAME UP WITH HIM ON OUR PUMPS, HE'S A&0X2-3 AT THIS TIME, HUMOROUS SO UNSURE IF COMPENSATING OR TRULY A&0X4. RA IV, MARCEL FISTULA, NO EMESIS AT THIS TIME. WILL GIVE REPORT TO NOC STAFF
[2018-10-05 19:45] VITALS: BP 90/50
[2018-10-05] MEDS ORDERED: FLORASTOR250 MG PO (19:47)
[2018-10-05] MEDS ORDERED: AZOPT OPHTH1 %/10 M1 OPHTHALMIC (19:50)
[2018-10-05] MEDS ORDERED: TIMOLOL MA0.25 %/52 OPHTHALMIC (19:51)
[2018-10-05] MEDS ORDERED: REMERON15 MG PO (19:52)
[2018-10-05] MEDS ORDERED: TRAZODONE HCL50 MG PO (19:52)
[2018-10-05] MEDS ORDERED: MIDODRINE HCL 55 M1 PO (19:53)
[2018-10-06 00:45] VITALS: BP 125/43
[2018-10-06 04:15] VITALS: BP 134/46
--- NOTE | 2018-10-06 04:33 | NUR ---
PT NEW ADMIT OF YESTERDAY FOR [facility] GERMAN. AO X 4. LOW BP BUT LATER IMPROVED. DIALYSIS PT . SCHEDULED DIALYSIS THIS MORNING. REPORTS MILD DISCMFORT IN HIS LEGS DUE TO REATLESS. CALL [facility] FOR CRITICAL LAB AND REQUEST TO RESUME HOME MEDS. MRSA SWAB FOR THE NARES COMPLETED.
[2018-10-06 07:12] VITALS: BP 108/43
--- NOTE | 2018-10-06 08:02 | EKG ---
[address] [address] ELECTROCARDIOGRAM REPORT Name: TOAN FISCHER Room #: 205-P ADM IN M.R.#: [id number] ������������������ Admission: 10/05/18 ������������������ Attend Phys: Jocelyne Gonzalez MD Discharge: ������������������ Date of : 56 Report #: [id number] ����������������������������������������������������������������� [id number] THIS REPORT FOR: //name// [facility] ED Test Date: 2018-10-05 Test Time: 15:18:49 Pat Name: TOAN FISCHER Department: Room: [facility] Gender: M User Experience Manager: Moe Medina : 1960 Requested By: José Miguel Hawthorne Order Number: [id number] MD: Mehran Cobb Measurements Intervals [place] Rate: 126 P: 28 WV: 159 QRS: 24 QRSD: 71 T: 62 QT: 310 QTc: 449 Interpretive Statements Sinus tachycardia Baseline wander in lead(s) V1 Compared to ECG 09/15/2018 10:55:40 Sinus rhythm no longer present ST (T wave) deviation no longer present Electronically Signed On 10-06-2018 8:01:59 CDT by Mehran Cobb [email or web address] ��������������������������������������������� <ELECTRONICALLY SIGNED> ���������������������������������������� By: Mehran Cobb MD ��������������������������������������������� 10/06/18 0801 1518 1518 Mehran Cobb MD /EPI
--- NOTE | 2018-10-06 11:14 | NUR ---
AAOX4. LABS NOTED. DIALYSIS THIS A.M. FREQUENT CHECKS; WILL CONTINUE TO MONITOR.
--- NOTE | 2018-10-06 12:33 | NUR ---
met with patient who is A/Ox4. He is ltc resident at [facility]. He is currently rec dialysis. He dializes at [facility]. He reports his sister Rima KNOTT. Placed DPOA on chart. Left message for sister Rima. Casemgt following plan return to [facility] once stable.
--- NOTE | 2018-10-06 15:22 | NUR ---
spoke with DPOA reviewed role of casemgt, plan return to [facility] once stable..
[2018-10-06 15:23] VITALS: BP 115/33
[2018-10-06 20:35] VITALS: BP 108/60
[2018-10-07 04:45] VITALS: BP 137/64
--- NOTE | 2018-10-07 06:24 | NUR ---
ASSUMED CARE AT 1900. PT AO X4. DENIES PAIN. IV CHANGED DUE TO INFILTRATION. PT CONTINUES WITH ABX. INCONTINENT OF BM. ANURIC . UNABLE TO COLLECT SAMPLE. OTHERWISE NO FURTHER C/O REPORT. HAD DIALYSIS YESTERDAY. WILL CONTINUE WITH PLAN OF CARE.
[2018-10-07 07:26] VITALS: BP 127/69
[2018-10-07 11:09] VITALS: BP 126/74
[2018-10-07 16:33] VITALS: BP 137/60
--- NOTE | 2018-10-07 16:33 | NUR ---
ASSUMED CARE OF PT AT SHIFT CHANGE. ASSESSMENTS CHARTED. MEDS GIVEN PER JUN. PT ALERT AND ORIENTED, VSS, DENIES PAIN. APPETITE ADEQUATE, PT C/O DIARRHEA- MANAGED WITH PO MEDS. PT NONAMBULATORY, Q2 TURNS ENFORCED. O2 SATS WNL ON 2L O2. DENIES CONCERNS AT THIS TIME. CALLS APPROPRIATELT WITH NEEDS. CONTINUING TO MONITOR AND FOLLOW POC.
[2018-10-07 19:58] VITALS: BP 146/68
--- NOTE | 2018-10-08 03:39 | NUR ---
ASSUMED CARE AT 1900. PT AO X 4. DENIES PAIN. VITALS STABLE. SCHEDULED FOR DIALYSIS TODAY. PT HAS LOOSE WATER STOOL. SAMPLE COLLECTED YESTERDAY. VITALS STABLE WITH A MILK FEVER. DIALYSIS SHUNT PATENT, BRUIT PRESENT. WILL CONTINUE TO FOLLOW POC.
[2018-10-08 04:12] VITALS: BP 144/60
[2018-10-08 08:24] VITALS: BP 147/69
--- NOTE | 2018-10-08 09:55 | NUR ---
FAXED CLINICAL UPDATE TO [facility] LEFT MSG WITH CELESTE IN ADM THAT UPDATE HAS BEEN FAXED. DCP TO FOLLOW.
--- NOTE | 2018-10-08 10:19 | NUR ---
PT CURRENTLY UNDERGOING DIALYSIS.
[2018-10-08 12:14] VITALS: BP 130/99
--- NOTE | 2018-10-08 13:41 | NUR ---
PT RESIDES AT [facility] FAXED CLINICAL UPDATE SPOKE WITH CELESTE IN ADM SHE RECEIVED UPDATE. DCP TO FOLLOW.
--- NOTE | 2018-10-08 15:30 | NUR ---
No weekend dc anticipated. Blood cultures pending. Pt continues on iv atb, o2 ,woundcare and mwf dialysis. [facility] updated.
--- NOTE | 2018-10-08 16:29 | HC ---
[facility] [place] [address] [place] [address] CONSULTATION Name: TOAN FISCHER Axel Room #: 205-P [facility] IN ..#: [id number] Admission: 10/05/18 ������������������ Attend Phys: Jocelyne Gonzalez MD Discharge: ������������������ Date of : 56 Report #: [id number] THIS REPORT FOR: //name// CC: Jocelyne Gonzalez DATE OF SERVICE: 10/06/2018 INFECTIOUS DISEASES CONSULTATION REASON FOR CONSULTATION: I was asked to evaluate concerning gram-negative sepsis. HISTORY OF PRESENT ILLNESS: The patient was a 58-year-old with underlying history of diabetes, peripheral vascular disease, gastroparesis with enteropathy and end-stage renal disease. He presents with fever, hypotension and tachycardia after a several-day history of low-grade fever, nausea and vomiting. He has long-standing diarrhea-type stools. On 09/17/2018, he underwent shuntogram for his AV fistula in the left upper extremity due to clotting. This was opened up. He has been able to dialyze. He did miss his last dialysis due to his infirm state. Denies any chills or sweats. He has had temperature over 101.2 degrees. Denies any abdominal pain or flank pain. Has minimal urine output. He has frequent liquid stools. His vomiting has ceased. He has had no blood in his stool or his emesis. No cough or sputum production. No chest pain. He has history of chronic wounds to his heels, but no active lesions at this time. REVIEW OF SYSTEMS: A 10-point review of systems was negative, other than what is described above. ALLERGIES: LYRICA. MEDICATIONS: As noted on his MAR, having been started on vancomycin and Zosyn. He did receive cefazolin at the time of his procedure involving the left AV fistula. PAST MEDICAL HISTORY: Diabetes, peripheral neuropathy, peripheral vascular disease, enteropathy, chronic left heel wounds and atrial fibrillation. FAMILY HISTORY: Noncontributory. SOCIAL HISTORY: Nonsmoker. No significant alcohol intake. skilled nursing resident. PHYSICAL EXAMINATION: VITAL SIGNS: Afebrile and hemodynamically stable. Temperature was 99 degrees, pulse 91, respiratory rate 18 and blood pressure 115/33. [facility] [address] [place] [address] CONSULTATION Name: TOAN FISCHER Room #: 205-P [facility] IN [facility].#: [id number] Admission: 10/05/18 ������������������ Attend Phys: Jocelyne Gonzalez MD Discharge: ������������������ Date of : 56 Report #: [id number] GENERAL: He is alert and cooperative. He was on the bed peralta, having liquid stools. SKIN: Without rash or decubitus. The heel wounds have scarred in. Nothing that appears active at this point. No palpable adenopathy. HEENT: Eyes, without scleral icterus. He is blind in the left eye. Mouth without mucositis. NECK: Supple. LUNGS: Consolidation in the right base posteriorly. HEART: Regular, without murmur, gallop or rub. ABDOMEN: Soft and nontender, with no masses or hepatosplenomegaly identified. GENITOURINARY: External genitalia without lesion or mass. RECTAL EXAMINATION: Not performed. EXTREMITIES: Without clubbing, cyanosis or edema. He had peripheral neuropathy with decreased sensation in both feet. NEUROLOIC: Cranial nerves otherwise intact. He had contractures of both upper and lower extremities. Evidence of arthritis in his knees. Mood normal. LABORATORY DATA: Blood cultures, gram-negative bacilli, 2/2 cultures. MRSA screen negative. Lactate 2.1. Sodium 145, potassium 4.9, bicarbonate 20 and creatinine 10. Liver function tests normal. Albumin at 2.2. Hemoglobin 10.9, platelet count 123,000, white count 6.5 with 92% segs and 6% lymphs. Chest x-ray with right lower lobe infiltrate, atelectasis, which had some chronic component to it. IMPRESSION AND PLAN: A 58-year-old with sepsis associated with fever, tachycardia and hypotension due to gram-negative bacteremia. This is complicating end-stage renal disease, diabetes, peripheral vascular disease, chronic gastroparesis and enteropathy. Source of his infection would include intra-abdominal, right lung pneumonia versus left AV fistula source, status post declotting procedure. Urinary tract would also be a consideration, but the patient will need further evaluation. We will continue gram-negative coverage with Zosyn. Repeat blood cultures in the a.m. Ultrasound of the left AV fistula to assess for aneurysm fluid collection. A CT scan of abdomen and pelvis to ensure no abscess or evidence of enteritis or colitis. Check stool culture, urine culture and blood cultures. The patient will remain on the CCU. I have discussed with nursing staff at the bedside. ��������������������������������������������� <ELECTRONICALLY SIGNED> ���������������������������������������� By: José Miguel Slaughter MD ��������������������������������������������� 10/08/18 1629 2035 0426 José Miguel Slaughter MD /nt
[2018-10-08 16:32] VITALS: BP 129/69
--- NOTE | 2018-10-08 19:18 | NUR ---
KASIE REPORT GIVEN TO LYNDA.
[2018-10-08 20:00] VITALS: BP 135/93
[2018-10-09] VITALS: BP 111/57
[2018-10-09 03:39] VITALS: BP 104/46
--- NOTE | 2018-10-09 06:14 | NUR ---
ASSUMED CARE AT 1900, ASSESSMENTS COMPLETED Q4 HOURS. PT C/O BUTTOCKS/SACRAL AREA HURTING, AREA IS RED BUT BLANCHABLE; HAVING FREQ LOOSE STOOLS, FREQ PERICARE AND BARRIER CREAM APPLIED. PT REPOSITIONED Q2 HOURS. DENIES SOB OR NAUSEA. HAS BEEN SR ON TELE WITH HR 75-90. PT CALLS APPROPRIATELY FOR NEEDS. NO URINE OUTPUT OVERNIGHT. NO OTHER CONCERNS, WILL CONTINUE TO MONITOR.
[2018-10-09 07:38] LABS: BASOPHILS 1.4 % (0.0-2.0); EOSINOPHILS 1.8 % (0.0-3.0); HEMATOCRIT 28.5 % (42.0-52.0); HEMOGLOBIN 9.1 gm/dL (14.0-18.0); LYMPHOCYTES 20.1 % (24.0-44.0); MCH 28.5 pg (26.0-34.0); MCHC 32.1 g/dL (28.0-37.0); MCV 88.9 fL (80.0-100.0); MONOCYTES 8.6 % (1.0-8.0); PLATELET COUNT 164 thou/uL (150-400); POLYS 68.1 % (36.0-66.0); RDW 15.7 % (10.5-14.5); WBC 7.3 thou/uL (4.0-11.0)
[2018-10-09 07:47] LABS: ALBUMIN 1.5 g/dL (3.4-5.0); CALCIUM 8.1 mg/dL (8.5-10.1); CREATININE 5.8 mg/dL (0.7-1.3); POTASSIUM 3.1 mmol/L (3.5-5.1); TOTAL BILIRUBIN 1.3 mg/dL (<0.1-1.0); TOTAL PROTEIN 6.8 g/dL (6.4-8.2)
[2018-10-09 07:58] VITALS: BP 149/86
[2018-10-09 16:34] VITALS: BP 139/63
[2018-10-09 20:00] VITALS: BP 155/85
[2018-10-09 23:23] LABS: CASTS None Seen /LPF (None Seen); MUCUS >6 Heavy strn/LPF (None Seen); SQUAMOUS None Seen /LPF (0-3); URINE WBC-REFLEX >25 Many /HPF (0-5)
[2018-10-09 23:24] LABS: BACTERIA-REFLEX >30 Many /HPF (None Seen); CRYSTALS None Seen /LPF (None Seen); URINE COLOR BROWN; URINE RBC >20 Many /HPF (0-2)
[2018-10-09 23:25] LABS: URINE CLARITY TURBID
[2018-10-09 23:55] LABS: URINE BILIRUBIN NEGATIVE (Negative); URINE GLUCOSE-RANDOM* NEGATIVE (Negative); URINE KETONES 1+ (Negative); URINE PROTEIN (DIPSTICK) 3+ (Negative); URINE SPECIFIC GRAVITY 1.025 (1.005-1.035)
[2018-10-09 23:56] LABS: URINE BLOOD 3+ (Negative); URINE LEUKOCYTES-REFLEX 3+ (Negative); URINE NITRITE-REFLEX NEGATIVE (Negative); URINE UROBILINOGEN 0.2 E.U./dl (0.2-1.0)
[2018-10-10 04:00] VITALS: BP 122/68
--- NOTE | 2018-10-10 04:01 | NUR ---
pt resting on and off in room, no c/o pain, frequent loose stools lopermide given, frequent turning as needed, vss, will con't to monitor per ppoc.
[2018-10-10 07:53] VITALS: BP 151/5
[2018-10-10 11:28] VITALS: BP 153/76
[2018-10-10 16:03] VITALS: BP 134/59
--- NOTE | 2018-10-10 18:16 | NUR ---
ASSUMED CARE AT SHIFT CHANGE, ALERT AND ORIENTED X4. SR ON THE MONITOR, BP SLIGHTLY ELEVATED PLS SEE V/S FOLLOW SHEET AND AFEBRILE. PROGRSEEING TOWARDS GOALS AND WILL CONTINUE TO MONITOR. AND WILL CONTINUE WITH POC.
[2018-10-10 20:08] VITALS: BP 183/97
[2018-10-10 20:11] VITALS: BP 156/55
[2018-10-11 05:28] VITALS: BP 126/74
[2018-10-11 07:22] VITALS: BP 137/73
--- NOTE | 2018-10-11 08:10 | NUR ---
pt resting quietly in room, turning and repositioning as needed, vss, assessment as charted, no c/o pain, will con't to monitor per pts ppoc.
[2018-10-11 12:07] VITALS: BP 137/76
--- NOTE | 2018-10-11 14:55 | NUR ---
FAXED CLINICAL UPDATE TO [facility] SPOKE WITH CELESTE IN ADM SHE RECEIVED UPDATE. DCP TO FOLLOW.
--- NOTE | 2018-10-11 17:08 | NUR ---
assessments as charted - meds as per jun - co's of headache -given thylenol with mod relief. abeba diet and fluids - patient requiring to be feed due to blindness. pulmonary consult called to office. to be seen by speech in the am due to patient having dilaysis today and speech unable to see. removed 1375 cc withi dialysis per nurse. pt has been resting on and off throughout the day. no co's at the present time.
[2018-10-11 22:09] VITALS: BP 132/69
[2018-10-12 04:16] LABS: ALBUMIN 1.8 g/dL (3.4-5.0); CALCIUM 8.3 mg/dL (8.5-10.1); CREATININE 5.6 mg/dL (0.7-1.3); PHOSPHORUS 3.8 mg/dL (2.5-4.9); POTASSIUM 4.2 mmol/L (3.5-5.1)
[2018-10-12 04:45] VITALS: BP 133/77
--- NOTE | 2018-10-12 06:15 | NUR ---
PATIENTS CARES WERE PICKED UP AT 2330 AFTER A NURSE ROTATED OUT TO WORK ANOTHER UNITE. PATIENT WAS ASSESSED AND A VERY PLEASENT MAN. HOURLY ROUNDING WAS DONE. THE BED IS IN A LOW AND LOCKED POSITION. THE BED ALARM IS ON.
[2018-10-12 11:00] VITALS: BP 134/65
[2018-10-12 16:44] VITALS: BP 116/57
--- NOTE | 2018-10-12 17:13 | NUR ---
ASSESSMENT CHARTED - MEDS PER LON - HUANG DIET AND FLUIDS. NO CO'S OF PAIN OR NAUSEA. PT WITH 5 LIQUID STOOLS SO FAR THIS SHIFT - REQUESTED TO SIT ON THE BEDPAN AT TIMES OTHER TIMES INCONTINENT. NO URINE THIS SHIFT. PT TO HAVE DIALYSIS IN THE AM - ORDERS WRITTEN. PT BOTTOM SORE FROM STOOLING BARRIER CREAM APPLIED WITH EACH STOOL. PT REQUIRING TO BE FEED DUE TO BLINDNESS - EATING WELL. NO CO'S AT THE PRESENT TIME.
--- NOTE | 2018-10-12 19:29 | HC ---
[facility] [place] [address] CONSULTATION Name: TOAN FISCHER Room #: 205-P [facility] IN ..#: [id number] Admission: 10/05/18 ������������������ Attend Phys: Jocelyne Gonzalez MD Discharge: ������������������ Date of : 56 Report #: [id number] THIS REPORT FOR: //name// CC: Jocelyne Gonzalez PULMONARY CONSULTATION REFERRING PHYSICIAN: Dr. Gonzalez. REASON FOR REFERRAL: Abnormal chest x-ray. HISTORY OF PRESENT ILLNESS: The patient is a 58-year-old -[place] male who was brought to the ED for fever and chills. A pulmonary consultation was requested regarding abnormal chest x-ray. The patient has multiple medical problems including end-stage renal disease. He undergoes regular hemodialysis. Has a long history of diabetes mellitus and has been on dialysis for many years. On this admission, he was found to be septic with gram-negative bacteremia. Culture grew coli. He also has a recent left AV dialysis graft declotting. Chest x-ray in the past has shown small lung volumes on the right with a small pleural effusion, clear left lung field. Chest x-ray performed yesterday shows linear interstitial infiltrates, mild right-sided pleural peel, relatively clear left lung field. There is felt to be chronic changes from prior chest x-rays. Currently, he is awake. Denies any chest pain or productive cough. PAST MEDICAL HISTORY: Notable for long history of diabetes mellitus, end-stage kidney disease, neuropathy, chronic hypotension on midodrine, severe gastroparesis, enteropathy, recurrent poor healing left heel ulcer, atrial fibrillation, history of glaucoma, and gastroesophageal reflux disease. PAST SURGICAL HISTORY: As mentioned above. ALLERGIES: LYRICA, reactions unspecified. CURRENT MEDICATIONS: Reviewed, is in the MAR. FAMILY HISTORY: Noncontributory. SOCIAL HISTORY: Denies any tobacco or alcohol use. He resides at [facility]. REVIEW OF SYSTEMS: As mentioned above, otherwise notable for progressive weakness and debility. [facility] [address] [place] [address] CONSULTATION Name: TOAN FISCHER Room #: 205-P [facility] IN .R.#: [id number] Admission: 10/05/18 ������������������ Attend Phys: Jocelyne Gonzalez MD Discharge: ������������������ Date of : 56 Report #: [id number] PHYSICAL EXAMINATION: GENERAL: He is awake, in no distress. VITAL SIGNS: Temperature is 99 degrees Fahrenheit, pulse is 86, respiratory rate is 18, blood pressure 137/73 mmHg, and saturation 100%. HEENT: Normocephalic, atraumatic. NECK: Supple, without lymphadenopathy or thyromegaly. CHEST: Breath sounds are decreased due to poor effort. No obvious rales or wheezes. CARDIOVASCULAR: Normal S1, S2. There are murmurs or gallop. There is no JVD, no carotid bruit. Pulses are 2+/4+ bilaterally. ABDOMEN: Soft, nontender, no organomegaly or masses felt. GENITOURINARY: Deferred. RECTAL: Deferred. EXTREMITIES: Notable for muscle atrophy, some contractures of the right upper extremity. Otherwise, no cyanosis or clubbing. Poor healing ulcer is noted in the left heel. LABORATORY DATA: Chest x-ray mentioned above. Electrolytes: Sodium 139, potassium 3.1, chloride 103, CO2 27, BUN 23, creatinine is 5.2. Liver enzymes are grossly unremarkable. WBC 7300, hemoglobin 9.1, and platelets are normal. Albumin 1.1. IMPRESSION: 1. Abnormal chest x-ray in this 58-year-old -[place] male. Some of the changes appear to be chronic with slight increased interstitial marking on the right lung field. He appears to have chronically decreased right lung volume, along with small pleural effusion. Right hemidiaphragm is somewhat elevated. This might be related to neuromuscular weakness. At this time, I do not think there is evidence for pneumonia. Note that he is already on antibiotics for his sepsis. 2. Sepsis, gram-negative bacteremia. 3. Encephalopathy, toxic and metabolic. 4. Diabetes mellitus type 2 with end-stage renal disease. 5. Gastroparesis, enteropathy. 6. Chronic hypotension, on midodrine. 7. Severe protein-calorie malnutrition. 8. Progressive muscle weakness and debility. RECOMMENDATION: Recommend followup chest x-ray for now. No further workup is necessary. If worse, may consider CT imaging for better evaluate for more detailed evaluation of a lung parenchyma. I think for now, continue antibiotics as you are and followup serial chest x-rays. [address] [address] CONSULTATION Name: AALIYAHTOAN Axel Room #: 205-P [facility] IN M.R.#: [id number] Admission: 10/05/18 ������������������ Attend Phys: Jocelyne Gonzalez MD Discharge: ������������������ Date of : 56 Report #: [id number] Thank you for this consultation. ��������������������������������������������� <ELECTRONICALLY SIGNED> ���������������������������������������� By: Napoleon Rice MD ��������������������������������������������� 10/12/18 1929 1917 0346 Napoleon Rice MD /nt
[2018-10-12 21:21] VITALS: BP 145/64
[2018-10-13 04:48] VITALS: BP 144/68
--- NOTE | 2018-10-13 04:56 | NUR ---
PT AO X4. DENIES PAIN. VITALS STABLE. DIALYSIS THIS MORNING. WATERY STOOL OVER NIGHT. SAMPLE COLLECTED FOR C-DIFF MICRO. NO FURTHER C/O AT THIS TIME. WILL CONTINUE TO FOLLOW POC.
[2018-10-13 16:00] VITALS: BP 103/58
--- NOTE | 2018-10-13 18:32 | NUR ---
PATIENT ASSESSMENT CHARTED, DIALYSIS COMPLETED IN THE MORNING, VSS, NO BOWEL MOVEMENT, ALERT AND ORIENTED, NO COMPLAINTS OF PAIN, WILL CONTINUE TO FOLLOW PLAN OF CARE.
[2018-10-13 20:00] VITALS: BP 112/44
[2018-10-14 04:35] VITALS: BP 111/59
--- NOTE | 2018-10-14 05:05 | NUR ---
ASSUMED PT CARE AT 1900 WITH NO SIGN OF DISTRESS NOTED IN PT. PT IS ALERT, ASSESSEMENT ON PATIENT IS COMPLETED. PT IS LAYING IN BED STABLE. DENIES ANY NEED. SCHEDULED MEDS ADMINISTERED TO PT. PT TOLERATED PO INTAKE. LEFT ARM FISTULA IN PLACE. PT IS IN NSR. NO SIGN OF DISTRESS NOTED. BATH GIVEN TO PATIENT DURING THE NIGHT. PT HAD TWO LOOSE STOOL WITH FOOD PARTICULES PRESENT. PT IS STABLE THROUGHOUT THE NIGHT, DENIES ANY FURTHER NEEDS AT THIS TIME. [facility] NURSING POC.
[2018-10-14 07:15] VITALS: BP 104/54
--- NOTE | 2018-10-14 10:07 | HC ---
[facility] [address] [facility] [place] [address] CONSULTATION Name: TOAN FISCHER Axel Room #: 205-P [facility] IN .R.#: [id number] Admission: 10/05/18 ������������������ Attend Phys: Jocelyne Gonzalez MD Discharge: ������������������ Date of : 56 Report #: [id number] THIS REPORT FOR: //name// CC: Jocelyne Gonzalez DATE OF SERVICE: 10/05/2018 REASON FOR CONSULTATION: End-stage renal disease. HISTORY OF PRESENT ILLNESS: The patient is very well known to our service, dialyzes in the [facility] and stays at [facility]. He is extremely chronically ill, chronically hypotensive with longstanding severe diabetes and on dialysis for many years. He has severe enteropathy and gastroparesis with nausea, vomiting and intermittent constipation and diarrhea. He has a chronic left heel ulcer, has had recurrent clotting of his left AV dialysis graft, which clotted yesterday, was declotted, but he has not dialyzed in four days. He presents with vomiting and fever, although he denies remembering vomiting, but this is in his history. He denies abdominal pain. He says he has been constipated and he took some Imodium. PAST MEDICAL HISTORY: Longstanding diabetes mellitus with triopathy, severe autonomic neuropathy with severe hypotension, on midodrine. Severe gastroparesis and enteropathy, recurrent left heel ulcers as mentioned above. He has a history of atrial fibrillation, which is intermittent. MEDICATIONS: At the extended care facility include Nephrocaps 1 daily, eyedrops, PhosLo 1 with meals t.i.d., gabapentin 300 mg at bedtime, Megace 400 mg b.i.d., midodrine 5 mg t.i.d., Protonix 40 mg daily and trazodone 50 mg at bedtime. FAMILY HISTORY: Positive for diabetes and negative for renal disease. SOCIAL HISTORY: No cigarettes or alcohol and lives at the extended care facility. REVIEW OF SYSTEMS: GENERAL: He feels poorly. EYES: He is blind in the left eye and can see in the right. ENT: Hearing okay, swallows okay. No mouth sores. ENDOCRINE: Positive for the diabetes. Negative for thyroid disease. RESPIRATORY: Easily short-winded. CARDIAC: No chest pain or angina. No current palpitations. GASTROINTESTINAL: Chronic nausea, vomiting and diarrhea. GENITOURINARY: Does not make any urine at this point. MUSCULOSKELETAL: No arthritis. NEUROLOGIC: Severe peripheral neuropathy with numbness below midcalf level. [facility] [address] [place] [address] CONSULTATION Name: TOAN FISCHER Room #: 205-P [facility]#: [id number] Admission: 10/05/18 ������������������ Attend Phys: Jocelyne Gonzalez MD Discharge: ������������������ Date of : 56 Report #: [id number] SKIN: Left heel ulcer, chronic. PHYSICAL EXAMINATION: GENERAL: Chronically ill-appearing, somewhat obese patient, in no acute distress, awake, alert, and oriented. SKIN: Remarkable for the left heel ulcer. SKELETAL: No amputations. HEENT: Extraocular movements are full. Vision is intact in the right eye and blind in the left. ENT: Hearing okay. Mucous membranes are moist. Tongue, buccal mucosa is benign. NECK: Supple, no carotid bruits. CHEST: Diminished breath sounds with crackles at the left base. HEART: Regular. ABDOMEN: Soft and nontender. EXTREMITIES: Left heel ulcer. No edema. NEUROLOGIC: Numbness below the midcalf. LABORATORY DATA: Hemoglobin 10.9, white count 6.5 and platelets 123. Sodium 145, potassium 4.9, chloride 109, bicarbonate 20, creatinine and BUN . ASSESSMENT: 1. End-stage renal disease. We will dialyze tomorrow. Orders will be entered. 2. Diabetic gastroparesis and enteropathy. 3. Chronic hypotension secondary to severe autonomic neuropathy. 4. Left heel ulcer. 5. Paroxysmal atrial fibrillation. ��������������������������������������������� <ELECTRONICALLY SIGNED> ���������������������������������������� By: Herbie Ponce MD ��������������������������������������������� 10/14/18 1007 [id number] 0147 Herbie Ponce MD /nt
[2018-10-14 11:35] VITALS: BP 129/75
[2018-10-14 15:10] VITALS: BP 119/66
--- NOTE | 2018-10-14 16:13 | NUR ---
FAXED CLINICAL UPDATE TO [facility] SPOKE WITH CELESTE IN ADM SHE RECEIVED UPDATE. DCP TO FOLLOW.
--- NOTE | 2018-10-14 18:20 | NUR ---
ASSUMED CARE OF PT AT SHIFT CHANGE. ASSESSMENTS CHARTED. MEDS GIVEN PER JUN. PT ALERT AND ORIENTED, VSS, DENIES PAIN, O2 SATS WNL ON 2L O2, NO S/SX OF CARD OR RESP DISTRESS NOTED. APPETITE ADEQUATE. PT NONAMBULATORY, Q2 TURNS ENFORCED. PT HAD EPISODE OF VOMITING AFTER DINNER, DENIED NEED FOR NAUSEA MEDICATION, PT HAS NOT HAD EPISODE SINCE. DENIES CONCERNS AT THIS TIME. WILL CONT TO MONITOR AND FOLLOW POC.
[2018-10-14 19:43] VITALS: BP 132/92
--- NOTE | 2018-10-15 02:52 | NUR ---
ASSUMED PT CARE AT 1900. PT A/OX4, VITALS SIGNS STABLE. ASSESSMENT CHARTED. NO COMPLAINT OF PAIN, Q2 HOUR TURNS COMPLETED. STOOL CULTURE CAME BACK POSITIVE FOR CDIFF. CONTACT PRECAUTIONS MAINTAINED. FREQUENT STOOLS. FREQUENT CHECKS. PT RESTED WELL. CALLS OUT APPROPRIATELY. PROGRESSING TOWARD PLAN OF CARE. CLOSE TO NURSING STATION. WILL CONTINUE TO MONITOR.
[2018-10-15 03:26] VITALS: BP 137/76
[2018-10-15 04:50] LABS: ALBUMIN 1.7 g/dL (3.4-5.0); CALCIUM 8.5 mg/dL (8.5-10.1); CREATININE 6.5 mg/dL (0.7-1.3); POTASSIUM 4.1 mmol/L (3.5-5.1)
[2018-10-15 07:25] VITALS: BP 117/76
[2018-10-15 11:30] VITALS: BP 142/81
--- NOTE | 2018-10-15 15:40 | NUR ---
Case discussed with the care team. Pt with new dx of cdiff this am and having increased loose stools. Started on po vanco. The attending to discuss poc with ID/Nephro: iv atb recommendtions for 2 weeks and need for possible midline or picc line. [facility] updated and they can accept him back under his snf benefits. They are verifying his medicare days.Will follow.
[2018-10-15 15:55] VITALS: BP 139/98
--- NOTE | 2018-10-15 16:04 | NUR ---
FAXED DR. CORONADO'S PROG. NOTES TO [facility] SPOKE WITH [facility] IN ADM SHE CAN ACCEPT PT FOR SKILLED AND IV ABX. DCP TO FOLLOW.
--- NOTE | 2018-10-15 16:08 | NUR ---
ASSUMED CARE OF PT AT SHIFT CHANGE. ASSESSMENTS CHARTED. MEDS GIVEN PER JUN. PT ALERT AND ORIENTED, VSS, C/O PAIN IN LEG, WILL TREAT WITH PO TYLENOL. LAB RESULTS BACK THIS AM, PHYSICIAN NOTIFIED, ORDERS RECEIVED. PT CONTINUES TO HAVE LOOSE STOOLS. O2 SATS WNL ON 2 L, NO S/SX OF CARD OR RESP DISTRESS NOTED. APPETITE ADEQUATE, VSS, PT CURRENTLY RECEIVING DIALYSIS AND TOLERATING WELL. PLAN IS FOR PT TO DC THURSDAY PER DR DICKINSON. PT DENIES CONCERNS AT THIS TIME. WILL CONT TO MONITOR AND FOLLOW POC.
--- NOTE | 2018-10-15 16:30 | NUR ---
DR DICKINSON WANTING TO KNOW IF OKAY WITH ID PHYSICIAN FOR MIDLINE PLACEMENT BEFORE DC FOR IV ABX TREATMENT POST DC, ID PHYSICIAN STATED HE DOES NOT FEEL PT WILL CONTINUE TO NEED IV ABX POST DC. DR DICKINSON NOTIFIED.
[2018-10-15 20:15] VITALS: BP 104/52
--- NOTE | 2018-10-16 04:28 | NUR ---
ASSUMED PT CARE AT 1900. PT DROWSY, TIRED FROM DIALYSIS. VITAL SIGNS STABLE, ASSESSMENT CHARTED. NO COMPLAINTS OF PAIN. [id number] , HOURLY ROUNDING. PT RESTED WELL THROUGH THE NIGHT. PROGRESSING TOWARD PLAN OF CARE. WILL CONTINUE TO MONITOR.
[2018-10-16 04:57] VITALS: BP 114/55
[2018-10-16 07:30] VITALS: BP 113/48
[2018-10-16 11:30] VITALS: BP 100/49
[2018-10-16 15:35] VITALS: BP 82/41
--- NOTE | 2018-10-16 16:21 | NUR ---
ALERT X 4, ABLE TO MAKE NEEDS KNOWN. ON CDIFF PRECAUITONS. LAST STOOL SOFT FORMED. CONTINUES ON ORAL VANCO. ABLE TO TAKE PILLS WHOLE ONE AT A TIME. BLOOD SUGARS DO NOT MEET THE SLIDING SCALE DURING MORING AND NOON MEAL. TURNS Q2 HOURS TOLERATED. FREQUENT REQUEST FOR BEDPAN. TOUCH CALL LIGHT IN REACH. FALL PRECAUTIONS IN PLACE. POSSIBLE DC ON THURSDAY.
[2018-10-16 19:30] VITALS: BP 107/43
[2018-10-17 04:00] VITALS: BP 109/55
--- NOTE | 2018-10-17 04:34 | NUR ---
ASUMED PT CARE AT 1900. PT A/OX4, VITAL SIGNS STABLE, ASSESSMENT CHARTED. NO COMPLAINTS OF PAIN. DIARRHEA STILL WATERY BUT LESS FREQUENT. 2L O2, [id number] COMPLETED. PT RESTED WELL THROUGH THE NIGHT. WILL CONTINUE TO MONITOR. CONTACT PRECAUTIONS, FALL PRECAUTIONS MAINTAINED.
[2018-10-17 07:45] VITALS: BP 98/50
[2018-10-17 11:45] VITALS: BP 121/61
--- NOTE | 2018-10-17 15:58 | NUR ---
PATIENT CONT TO HAVE LOOSE STOOLS. CONT ON CONTACT ISOLATION FOR CDIFF. NEEDS BENNY WITH MOST ADLS. HE IS PLEASANT AND COOPERATIVE WITH CARE. CONT ON ABT FOR SEPSIS. WILL CONT WITH PLAN OF CARE.
[2018-10-17 17:29] VITALS: BP 110/60
[2018-10-17 19:22] VITALS: BP 87/41
[2018-10-18 03:18] LABS: HEMATOCRIT 27.7 % (42.0-52.0); HEMOGLOBIN 8.9 gm/dL (14.0-18.0); MCH 28.9 pg (26.0-34.0); MCHC 32.1 g/dL (28.0-37.0); MCV 90.1 fL (80.0-100.0); RBC 3.07 mil/uL (4.50-6.00); WBC 8.9 thou/uL (4.0-11.0)
[2018-10-18 03:22] LABS: CALCIUM 8.6 mg/dL (8.5-10.1); CREATININE 7.5 mg/dL (0.7-1.3); PHOSPHORUS 3.7 mg/dL (2.5-4.9); POTASSIUM 5.9 mmol/L (3.5-5.1)
[2018-10-18 03:37] VITALS: BP 118/65
--- NOTE | 2018-10-18 08:22 | NUR ---
PT REST FOR SHORT PERIODS THRU THE NIGHT WITH FREQUENT TURNING FOR COMFORT, ANDBED LIN USE, ISOLATION FOR CDIFF, VSS, DIALYSIS SCHEDULED FOR TODAY, PT NEEDS ASSIST WITH ADLS, SOFT TOUCH CALL LIGHT AT BEDSIDE, NO C/O PAIN WILL CON'T TO MONITOR TO CON'T PPOC.
[2018-10-18 08:25] VITALS: BP 100/54
[2018-10-18 15:15] VITALS: BP 102/64
--- NOTE | 2018-10-18 15:50 | NUR ---
Assumed care of pt at 0700. Pt alert and oriented x4. Pt received dialysis this am. During hemodialysis pt's blood pressure dropped and dialysis nurse advised pt not to eat breakfast at that time due to risk of aspiration. Pt becomes agitated and state he has not been fed. Explanation given to pt on why he was not fed on time due to his bp dropping and following advise of dialysis nurse. Offered to warm up his breakfast and feed pt right after dialysis is over. Pt still agitated. Pt fed lunch and becomes more relaxed, calm, and cooperative. Q2h turn. 3 loose small BMs during shift. Dialysis MWF. Soft-touch call light in place. Therapeutic communication used with patient. Possible D/C back to nursing facility tomorrow. Fall precautions in place. Will continue to monitor.
--- NOTE | 2018-10-18 17:13 | NUR ---
sp with Dr Gonzalez tentative plan for dc to [facility] in am. Notified [facility] via .
[2018-10-18 20:21] VITALS: BP 99/65
[2018-10-19 04:32] VITALS: BP 91/53
--- NOTE | 2018-10-19 06:44 | NUR ---
PATIENT CARES WERE ASSUMED AT SHIFT CHANGE.PATIENT ASSESSED AND MEDS PASSED. PATIENT WAS GIVEN A BED BATH DUE TO A MASSIVE STOOL. LINEN CHANGE WELL WAS DONE. PATIENTS CONCERNED WITH THE AIDES CLEANING HIM AND WANTED TO STAY SITTING ON THE BED LIN. HOURLY ROUNDING WAS DONE BED IS IN A LOW AND LOCKED POSITION. BED ALARM IS ON
[2018-10-19 08:20] VITALS: BP 128/80
[2018-10-19 11:20] VITALS: BP 128/87
[2018-10-19 15:05] VITALS: BP 97/48
--- NOTE | 2018-10-19 18:39 | NUR ---
AAOX4 VERY PLEASANT AND COOPERATIVE. INCORPRENTIC OF MUSHY LIGHT BROWN STOOL ABOUT EVERY 2 HOURS. FEEDS SELF WITH GOOD APPETITE. NO COMPLAINTS OF PAIN. TURNED EVERY TWO HOURS. LEFT UPPER ARM PICC INTACT LEFT ARM DIAYLYSIS CATH INTACT WITH STRONG BRUIT.
[2018-10-19 20:00] VITALS: BP 147/29
--- NOTE | 2018-10-20 03:29 | NUR ---
ASSUMED PT CARE AROUND 1900. A&OX4. C/O PAIN IN HIS KNEES AND ALSO HIS SCARAL AREA, FROM FREQUENT STOOLING. PT STILL HAVING MANY LOOSE STOOLS DURING THE NIGHT. REPOSITIONED TO PREVENT SKIN BREAKDOWN. PT IS ABLE TO HELP MOVE HIMSELF SOME IN THE BED. VSS. AFEBRILE. PT SLEPT PART OF THE NIGHT. RESP EVEN AND UNLABORED. PROGRESSING SLOWLY TOWARD POC GOALS. WILL CONTINUE TO MONITOR FURTHER.
[2018-10-20 05:31] VITALS: BP 117/62
[2018-10-20 07:43] VITALS: BP 128/68
[2018-10-20] MEDS ORDERED: FIRVANQ50 MG/1 ML PO (09:01)
[2018-10-20] MEDS ORDERED: COLESTID1 GM PO (09:01)
--- NOTE | 2018-10-20 11:52 | NUR ---
PT DISCHARGING TODAY BACK TO [facility] FAXED DC ORDERS/SUMMARY TO FACILITY SPOKE WITH [facility] IN ADM SHE RECEIVED DC ORDERS AND ARRANGED TRANSPORTATION VIA [facility] FOR 1700 TODAY AFTER DIALYSIS. LEFT MSG WITH PT'S SISTER DPOA ( PETE) OF DC AND TIME OF TRANSPORT. UNIT NOTIFIED AND CHART COPY BY US. RN TO CALL REPORT TO [phone].
--- NOTE | 2018-10-20 12:29 | NUR ---
ASSUMED CARE AT 0700, SHIFT ASSESSMENT DONE, MEDS GIVEN, VSS. DENIES NAUSEA, VOMITING. REPORETED PAIN, PRN PAIN MED GIVEN. RECEIVING DIALYSIS THIS AM. DISCHRGE ORDER RECEIVED, WILL BE DC'D AT 1700. WILL CONTINUE TO ASSESS AND ASSIST WITH DC PLANNING NEEDED.
--- NOTE | 2018-10-20 16:01 | NUR ---
DISCHARGE REPORT WAS CALLED AT 1545. PATIENT IS SCHEDULED TO LEAVE AT 1700. PERIPHEARL IV WAS TAKEN OUT. TELEMETRY WAS DISCONTINUED. WILL CONTINUE TO ASSESS AND ASSIST WITH ADLs NEEDED.
== END 2018-10-20 17:01 | DRG 871 ==
LOC: ER 15:01 → EROBS 16:43 → 2N 16:43
PROVIDERS: Emergency Medicine; Internal Medicine Nephrology; Specialist; ADMIT Internal Medicine
PROC: 05HY33Z Insertion of Infusion Device into Upper Vein, Percutaneous Approach (ICD-10-PCS; principal; 2018-10-05)
PROC: 5A1D70Z Performance of Urinary Filtration, Intermittent, Less than 6 Hours Per Day (ICD-10-PCS; 2018-10-06)
PROC: 5A1D70Z Performance of Urinary Filtration, Intermittent, Less than 6 Hours Per Day (ICD-10-PCS; 2018-10-08)
PROC: 5A1D70Z Performance of Urinary Filtration, Intermittent, Less than 6 Hours Per Day (ICD-10-PCS; 2018-10-11)
PROC: 5A1D70Z Performance of Urinary Filtration, Intermittent, Less than 6 Hours Per Day (ICD-10-PCS; 2018-10-13)
PROC: 5A1D70Z Performance of Urinary Filtration, Intermittent, Less than 6 Hours Per Day (ICD-10-PCS; 2018-10-15)
PROC: 5A1D70Z Performance of Urinary Filtration, Intermittent, Less than 6 Hours Per Day (ICD-10-PCS; 2018-10-18)
PROC: 5A1D70Z Performance of Urinary Filtration, Intermittent, Less than 6 Hours Per Day (ICD-10-PCS; 2018-10-20)
DX: A41.50 Gram-negative sepsis, unspecified (principal); J18.9 Pneumonia, unspecified organism; N18.6 End stage renal disease; E43 Unspecified severe protein-calorie malnutrition; G92 Toxic encephalopathy; L97.429 Non-pressure chronic ulcer of left heel and midfoot with unspecified severity; N39.0 Urinary tract infection, site not specified; A04.71 Enterocolitis due to Clostridium difficile, recurrent; I12.0 Hypertensive chronic kidney disease with stage 5 chronic kidney disease or end stage renal disease; A41.51 Sepsis due to Escherichia coli [E. coli]; R65.20 Severe sepsis without septic shock; H40.9 Unspecified glaucoma; K21.9 Gastro-esophageal reflux disease without esophagitis; I95.9 Hypotension, unspecified; E11.43 Type 2 diabetes mellitus with diabetic autonomic (poly)neuropathy; K31.84 Gastroparesis; K63.9 Disease of intestine, unspecified; D63.1 Anemia in chronic kidney disease; I48.0 Paroxysmal atrial fibrillation; E11.51 Type 2 diabetes mellitus with diabetic peripheral angiopathy without gangrene; E11.22 Type 2 diabetes mellitus with diabetic chronic kidney disease; E87.6 Hypokalemia; K52.9 Noninfective gastroenteritis and colitis, unspecified; Z98.49 Cataract extraction status, unspecified eye; Z88.8 Allergy status to other drugs, medicaments and biological substances; Z68.29 Body mass index [BMI] 29.0-29.9, adult; Z83.3 Family history of diabetes mellitus; Z99.2 Dependence on renal dialysis
CPT/HCPCS: 10081; 32100

== ENCOUNTER 2018-10-27 17:17 | Inpatient (IN) | payer OTHER ==
[~2018-10-27] VITALS: Ht 180.3 cm; Wt 85.0 kg
--- NOTE | ~2018-10-27 | H ---
[facility] [place] [address] HISTORY AND PHYSICAL Name: TOAN FISCHER Room #: 351-P ADM IN M.R.#: [id number] Admission: 10/27/18 ������������������ Attend Phys: Jocelyne Gonzalez MD Discharge: ������������������ Date of : 56 Report #: [id number] THIS REPORT FOR: //name// CC: ED physician/PCP Jocelyne Gonzalez DATE OF SERVICE: 10/28/2018 CHIEF COMPLAINT: Acute mental status change, history of complex E. coli bacteremia after a shot declotting. HISTORY OF PRESENT ILLNESS: The patient was here at [facility] for 15 days from 10/05/2018 until 10/20/2018 for ESBL gram-negative E. coli bacteremia, the source of which was felt to be one of his fistulas. His fistula had been declotted the day before he got sick, and the ESBL E. coli grew out on blood cultures. He has had trouble recently with his fistula again, and it was declotted several days ago, and then declotted again either the day before, or before dialysis on the day of admission. Accounts vary as to exactly what happened, but apparently, the patient had a decreased mental status with not being as strong or as bright or as active as usual, and he was at dialysis and either refused dialysis or asked that it be stopped early or finished dialysis and then reported being ill and requested to come to the hospital. He may have said that he wanted never to dialize ever again. The accounts vary. He was brought to the hospital and found to have "decreased mental status" and admission was indicated. He makes a small amount of urine from time to time, and his urine appears quite purulent. PAST MEDICAL HISTORY: Significant for his most recent hospital stay for gram-negative bacteremia after having his shunt declotted. He chronically runs low blood pressures, and this is especially during dialysis, and recently, this has been ameliorated somewhat by extending his dialysis time from three hours to four hours. 09/15/2018 - 09/22/2018, he had a complete neurological evaluation because of a "30-minute seizure" that was reported by the dialysis staff, which was abnormal. CT was negative, neurologist evaluation was negative, the patient refused an MRI scan, an overnight sleep deprivation EEG was normal, longstanding diabetes with nephropathy, retinopathy, neuropathy and gastroenteropathy. Muscular contractions and atrophy from longstanding illness. Gastroparesis with chronic symptom complex with nausea/vomiting, uncontrolled diarrhea and then uncontrolled constipation. Left heel and right foot plantar pressure ulcers. He is blind in his left eye. History of atrial fibrillation. Peripheral artery disease. Severe peripheral neuropathy. Multiple muscle flexion contractions. Cervical strain, history of closed head injury, end-stage renal disease on dialysis, sepsis and malnutrition. History of urinary tract infection. CURRENT MEDICATIONS: Taken from his retirement medication sheet: Gabapentin [address] [address] HISTORY AND PHYSICAL Name: TOAN FISCHER Room #: 351-P [facility] IN ..#: [id number] Admission: 10/27/18 ������������������ Attend Phys: Jocelyne Gonzalez MD Discharge: ������������������ Date of : 56 Report #: [id number] 300 mg in the morning and again at bedtime. Folic acid 1 mg daily. Colestipol 1 gram twice daily for his diarrhea, PhosLo 667 before meals three times a day. Latanoprost 0.005 eye drops with one drop in each eye twice daily for glaucoma. Dorzolamide 2% eye drops one drop in each eye daily, prednisolone 1% eye drops suspension one drop in each eye once daily, Florastor (saccharomyces boulardii) 250 mg twice daily, pantoprazole 40 mg twice daily, mirtazapine 15 mg at bedtime for anorexia and depression, Silvadene topical cream to the left heel twice daily, midodrine 5 mg three times daily for low blood pressure, ondansetron 4 mg every six hours as needed for nausea and vomiting, bupropion HCL 150 mg once every morning for depression, vitamin C 500 mg once daily, artificial tears one drop in each eye as needed every six hours for dry eyes, ofloxacin 0.3% eye drops one drop in each eye four times a day, Peridex mouthwash twice daily, Nephrocaps 1 mg daily, Tylenol 500 mg every four hours as needed for pain, Azopt 1% eye drops suspension in both eyes twice daily, timolol 0.25% one drop in both eyes twice daily for glaucoma, vancomycin oral solution 125 mg every six hours daily for C. diff, supplemental oxygen 1-2 liters, Maxorb and loose Kerlix to the left heel decubitus, foam dressing to the right hand, topical finger, heel protectors while in bed. ALLERGIES: MORPHINE, CODEINE, PREGABALIN (gabapentin itself is well tolerated). SOCIAL HISTORY: He does not drink nor smoke, he is a long-term care retirement resident. REVIEW OF SYSTEMS: Limited in the Emergency Room because of his being somewhat mentally sluggish. At the time of my examination, he was eating his meal readily, and actively saying "Dr. Gonzalez let me have a regular diet." PHYSICAL EXAMINATION: GENERAL: He is awake, alert and oriented. His mental status is at baseline when I last saw him in the hospital in August of this year. EXTREMITIES: There is a shunt in his left upper arm, which is nontender and has a good murmur present. HEENT: Unremarkable. LUNGS: Clear. CARDIOVASCULAR: Heart tones are regular, S1 and S2 are normal. ABDOMEN: Soft, nontender. NEUROLOGIC: Both heels have old healed decubitus injuries, with a slightly more prominent one on the left heel. LABORATORY DATA: Remarkable for an albumin that is low at 2.0. White blood cell count was elevated at 14.6 with a left shift last night, he was given Rocephin in the Emergency Room, this morning, his white blood cell count has dropped significantly at 10.5 with almost complete resolution of his left shift. Urinalysis is now available and shows a niño turbid urine with many wbc's and [facility] [address] [place] [address] HISTORY AND PHYSICAL Name: TOAN FISCHER Room #: 351-P [facility] IN [facility].#: [id number] Admission: 10/27/18 ������������������ Attend Phys: Jocelyne Gonzalez MD Discharge: ������������������ Date of : 56 Report #: [id number] bacteria and mucus. Venous pO2 is low at 55.8 and lactate is high at 2.13 (0.5 - 2.0). Portable chest x-ray shows chronic appearing lung changes of the right hemithorax. ASSESSMENT: 1. Unclear history of mental status changes while at dialysis yesterday. 2. Chronically hypotensive during dialysis. 3. Recent difficulties with his shunt clotting, and several recent declotting procedures, the most recent one was the day before or immediately before admission. 4. History of a gram-negative bacteremia after having a shunt declotting. 5. Purulent turbid urine with urine infection. 6. There apparently are some chronic difficulties with either his current retirement or dialysis unit, and has expressed at times an interest in discontinuing dialysis. 7. Diabetes with nephropathy, neuropathy and retinopathy. 8. Severe diabetic gastroenteropathy. 9. History of Clostridium difficile and the patient was taking vancomycin on admission from his previous episode of Clostridium difficile. 10. Glaucoma, treated with multiple drugs. 11. Other medical problems as listed in the history and physical. 12. A "30-minute seizure" in August was actually not a seizure, but a shaking spell. 13. Other medical problems as in the history and physical. PLAN: 1. The patient is admitted, has been seen in Infectious Disease consultation by Dr. Ge Meade, an antibiotic started. Urine cultures are obtained, although antibiotics have been already given. Blood cultures are obtained. Again, antibiotics have already been given. 2. At his request. He is on regular diet that is carb controlled without extra added salt and without high potassium foods. 3. Dr. Gonzalez, his primary care physician, can address the concerns that Dr. Silva and the patient have noted about his current dialysis location or regimen, or living facility. ��������������������������������������������� ���������������������������������������� By: ��������������������������������������������� [id number] Cesar Garces MD /nt
[~2018-10-27 17:17] MED LIST changes: +COLESTID1 GM PO; +FIRVANQ50 MG/1 ML PO; +REMERON15 MG PO; +TIMOLOL MA0.25 %/52 OPHTHALMIC
[2018-10-27 17:18] VITALS: BP 100/67
[2018-10-27 19:01] LABS: ABSOLUTE NEUTROPHILS 13.5 thou/uL (1.4-8.2); BASOPHILS 0.4 % (0.0-2.0); EOSINOPHILS 0.2 % (0.0-3.0); HEMATOCRIT 30.4 % (42.0-52.0); HEMOGLOBIN 9.5 gm/dL (14.0-18.0); LYMPHOCYTES 3.4 % (24.0-44.0); MCH 28.2 pg (26.0-34.0); MCHC 31.3 g/dL (28.0-37.0); MCV 90.1 fL (80.0-100.0); MONOCYTES 3.7 % (1.0-8.0); PLATELET COUNT 241 thou/uL (150-400); POLYS 92.3 % (36.0-66.0); RBC 3.38 mil/uL (4.50-6.00); RDW 15.5 % (10.5-14.5); WBC 14.6 thou/uL (4.0-11.0)
[2018-10-27 19:08] LABS: ANION GAP 11 mmol/L (7-16); BUN 15 mg/dL (7-18); CALCIUM 8.6 mg/dL (8.5-10.1); CHLORIDE 99 mmol/L (98-107); CO2 29 mmol/L (21-32); CREATININE 5.6 mg/dL (0.7-1.3); GLUCOSE 95 mg/dL (74-106); POTASSIUM 3.9 mmol/L (3.5-5.1); SODIUM 139 mmol/L (136-145)
[2018-10-27 19:17] LABS: MAGNESIUM 1.9 mg/dL (1.8-2.4); TROPONIN-I <0.06 ng/mL (<0.06)
[2018-10-27 21:00] LABS: BE(vivo) 4.1 mmol/L (-2 to +3); HCO3 29.1 mmol/L (22.0-26.0); PCO2 VENOUS 45.3 mmHg (41.0-51.0); PO2 VENOUS 55.8 mmHg (35.0-45.0)
[2018-10-27 22:06] VITALS: BP 97/49
[2018-10-27 22:10] VITALS: BP 97/55
[2018-10-28 00:20] VITALS: BP 100/48
[2018-10-28 04:44] LABS: ABSOLUTE NEUTROPHILS 8.2 thou/uL (1.4-8.2); BASOPHILS 0.5 % (0.0-2.0); EOSINOPHILS 0.9 % (0.0-3.0); HEMATOCRIT 27.7 % (42.0-52.0); HEMOGLOBIN 8.9 gm/dL (14.0-18.0); LYMPHOCYTES 16.5 % (24.0-44.0); MCH 28.4 pg (26.0-34.0); MCV 88.6 fL (80.0-100.0); MONOCYTES 6.9 % (1.0-8.0); PLATELET COUNT 200 thou/uL (150-400); POLYS 75.2 % (36.0-66.0); RBC 3.12 mil/uL (4.50-6.00); RDW 15.7 % (10.5-14.5); WBC 10.9 thou/uL (4.0-11.0)
[2018-10-28 04:59] LABS: CALCIUM 7.9 mg/dL (8.5-10.1); POTASSIUM 5.4 mmol/L (3.5-5.1); TOTAL BILIRUBIN 0.4 mg/dL (<0.1-1.0); TOTAL PROTEIN 6.6 g/dL (6.4-8.2)
--- NOTE | 2018-10-28 05:36 | NUR ---
Received pt from ED at 2145. Pt resting in bed with family at bedside. AOX3. VSS. 2L NC. Pt is none ambulatory. With contractures on both upper and lower extremities. Healing ulcer on both heals that are open to air. Pictures taken and filed. Skin on sacrum tender, applied barrier cream. Pt has a left FA fistula that was recently cleared of a blockage. Still need urine sample patient refused to be straight cathed. Turn Q2. Heels off loaded with pillows. Pt requested to be taken off renal diet and put on regular diet. No identified needs at the moment. Will continue to monitor.
[2018-10-28 07:32] VITALS: BP 126/62
--- NOTE | 2018-10-28 09:49 | EKG ---
[place] [address] [employer] [facility] [place] [address] ELECTROCARDIOGRAM REPORT Name: TOAN FISCHER Room #: 351-P ADM IN M.R.#: [id number] ������������������ Admission: 10/27/18 ������������������ Attend Phys: Jocelyne Gonzalez MD Discharge: ������������������ Date of : 56 Report #: [id number] ����������������������������������������������������������������� [id number] THIS REPORT FOR: //name// [facility] ED Test Date: 2018-10-27 Test Time: 19:03:56 Pat Name: TOAN FISCHER Department: Room: [facility] Gender: M Take Down Sorter: Ruchi : 1960 Requested By: Liliana Mendes Order Number: [id number] MD: Fan Cody Measurements Intervals Hurley Rate: 96 P: 41 RI: 174 QRS: 20 QRSD: 80 T: 57 QT: 381 QTc: 482 Interpretive Statements Sinus rhythm Early R-wave progression Borderline prolonged QT interval Compared to ECG 10/05/2018 15:18:49 Sinus tachycardia no longer present early R-wave progression now present Electronically Signed On 10-28-2018 9:49:37 CDT by Fan Cody [email or web address] ��������������������������������������������� <ELECTRONICALLY SIGNED> ���������������������������������������� By: Fan Cody MD, MERGED WITH [facility] ��������������������������������������������� 10/28/18 0949 1903 1903 Fan Cody MD, MERGED WITH [facility] /EPI
[2018-10-28 09:54] LABS: SQUAMOUS None Seen /LPF (0-3); URINE CLARITY TURBID; URINE COLOR TAN
[2018-10-28 09:55] LABS: AMORPHOUS URATES Many /LPF (None Seen); BACTERIA-REFLEX >30 Many /HPF (None Seen); CASTS None Seen /LPF (None Seen); CRYSTALS None Seen /LPF (None Seen); URINE RBC None Seen /HPF (0-2)
[2018-10-28 09:59] LABS: ICTOTEST (BILI CONFIRMATORY) Negative (Negative); URINE REDUCING SUBSTANCE NEGATIVE
[2018-10-28 10:05] LABS: SSA (PROTEIN CONFIRMATORY) 4+ (APPROX. >= 500) mg/dL (Negative)
[2018-10-28 11:34] VITALS: BP 88/48
[2018-10-28 15:16] VITALS: BP 130/87
--- NOTE | 2018-10-28 16:38 | NUR ---
[facility] PATIENT CARE AT 0700. A/O X4. C/O MAYA LEGS PAIN. LOOSE STOOL. ASSISTED PATIENT TURN. VSS. PATIENT HAS GOOD APPETITE. WILL HAVE HD TOMORROW. SLOWLY TOWARDS POC GOALS.
[2018-10-28 19:30] VITALS: BP 97/58
--- NOTE | 2018-10-29 03:22 | NUR ---
resting quietly tonight. He is realible about calling out when he needs to have a BM. His BM is liquid and yellow, frothy. he is aware of the plan for dialysis this morning. careplan reviewed. denies pain.
[2018-10-29 03:55] VITALS: BP 109/68
--- NOTE | 2018-10-29 08:48 | HC ---
[address] [place] [address] CONSULTATION Name: TOAN FISCHER Room #: 351-P [facility] IN M.R.#: [id number] Admission: 10/27/18 ������������������ Attend Phys: Jocelyne Gonzalez MD Discharge: ������������������ Date of : 56 Report #: [id number] THIS REPORT FOR: //name// CC: ED physician/PCP Jocelyne Gonzalez REASON FOR CONSULTATION: End-stage renal disease. REASON FOR PRESENTATION: Altered mental status. HISTORY OF PRESENT ILLNESS: This is a very conflicting report from the ER, the patient and his family member. He has an end-stage renal disease with repeated hospitalization most recently. He has an E. coli bacteremia. He dialyzes every Thursday, Thursday and Thursday. The patient had his AV fistula declotted yesterday. He went back to his facility and was supposed to have a full 4 hour dialysis treatment; however, the patient refused to run full 4 hours and decided to stop in the middle of the treatment. The intermediate nurses called Dr. Bee and informed him that his fistula is clotted, which is not the case. The patient was brought to the hospital because of acute mental status changes. However, I see no acute mental status changes. The patient is fully alert and awake. He completely denies any current symptoms. Unfortunately, there had been some issues with the patient staying in the [facility] and he has not been happy with his stay there. PAST MEDICAL HISTORY: 1. End-stage disease. 2. Diabetes mellitus. 3. Hypertension. 4. Left heel ulcer. 5. AV fistula with multiple declotting procedures. ALLERGIES: MORPHINE and CODEINE. MEDICATIONS: 1. Folic acid. 2. Gabapentin. 3. Calcium acetate. SOCIAL HISTORY: He resides in a nursing facility. No drug or alcohol abuse. REVIEW OF SYSTEMS: GENERAL: No fever or chills. CARDIOVASCULAR: No chest pain or palpitation. PULMONARY: No cough or hemoptysis. GASTROINTESTINAL: No nausea or vomiting. GENITOURINARY: No frequency, no urgency. Makes little urine. MUSCULOSKELETAL: As per the history of present illness. [address] [place] [address] CONSULTATION Name: AALIYAHTOAN E Room #: 351-P [facility]#: [id number] Admission: 10/27/18 ������������������ Attend Phys: Jocelyne Gonzalez MD Discharge: ������������������ Date of : 56 Report #: [id number] PHYSICAL EXAMINATION: GENERAL: He is alert, oriented. VITAL SIGNS: Blood pressure is 126/62. HEAD AND NECK: No jugular venous distention. CHEST: No crackles. CARDIOVASCULAR: No rub. ABDOMEN: Soft, nontender. LOWER EXTREMITIES: Trace edema. Wounds over the left heel. LABORATORY DATA: Reviewed. White blood cell count was 14.6, but it is down to 10.9. Chemistry revealed sodium of 141 and potassium of 5.4. Chest x-ray with no acute finding. ASSESSMENT, IMPRESSION AND PLAN: 1. End-stage renal disease. 2. Diabetes mellitus. 3. Hypertension. 4. Weakness. 5. Leukocytosis. 6. We will arrange for the patient to have his usual hemodialysis tomorrow. 7. Management of his other comorbid condition as per the admitting team. 8. Resume outpatient medications. 9. We will continue to follow along. ��������������������������������������������� <ELECTRONICALLY SIGNED> ���������������������������������������� By: Soledad Silva MD ��������������������������������������������� 10/29/18 0848 [id number] Soledad Silva MD /nt
--- NOTE | 2018-10-29 10:47 | NUR ---
Nutrition: pt admit with AMS, sepsis and seen due to malnutrition consult. Physician has diagnosed-will defer. Hx ESRD on HD, DM, CHI, BG controlled. Seen on HD. Noted recent social issues and pt refusing full dialysis sessions. K-5.4, admits to eating potato salad yesterday. Has requested a regular diet although additional CODY, CHO controlled and no High K+ foods is added as secondary diets. Both heels with healing ulcers. Good appetite reported and refuses additional supplements. Weights stable, around 180#. Place as low risk.
[2018-10-29 15:39] VITALS: BP 110/4
--- NOTE | 2018-10-29 18:03 | NUR ---
ASSUMED CARE OF PT AT 0700. PT IS A&Ox4. PERIODIC COMPLAINTS OF COXXYX PAIN. PRN MEDICATION AND Q2H TURNS, PERMITTED, PROVIDED FOR RELIEF. PT CONTINUES TO REFUSE SCDs AND PRESSURE RELIEF BOOTS FOR HEELS. COXXYX IS PINK. PT HAD DIALYSIS IN ROOM THIS MORNING. 1L OF FLUID REMOVED PER DIALYSIS NURSE. ID REQUESTED BLOOD CULTURES. SPECIMENS DRAWN AND SENT TO LAB. NO BM TODAY. PT IS SLOWLY PROGRESSING TOWARD POC GOALS. WILL CONTINUE TO MONITOR AND ASSESS.
[2018-10-29 19:22] VITALS: BP 91/54
[2018-10-30 04:33] VITALS: BP 101/50
[2018-10-30 07:33] VITALS: BP 95/48
[2018-10-30 16:49] VITALS: BP 75/36; BP 85/79
--- NOTE | 2018-10-30 18:44 | NUR ---
PATIENT HAS RESTED IN ROOM THROUGH THE DAY. CONT TO PROGRESS TOWARDS GOALS. HE IS ALERT ORIENTED X4. HAD 4 LARGE BMS TODAY. KEPT CLEAN AND DRY. PLEASANT WITH CARE. WILL BE TRANSERED TO 4E THIS P M. WILL CONT WITH PLAN OF CARE.
[2018-10-30 19:28] VITALS: BP 107/61
--- NOTE | 2018-10-30 22:08 | NUR ---
PATIENT ALERT AND ORIENTED X4. REMAINS IN ISOLATION FOR C-DIFF. [facility] WITH ICE CREAM AND EDE CRACKERS. ALL MEDS FROM THE NIGHT NURSE INCLUDING 2200 WERE GIVEN BEFORE PATIENT WAS TRANSFERRED TO ROOM 419 AT APPROX. 2205. REPORT WAS GIVEN TO ALINE (RN). PATIENT TOLERATED WELL.
--- NOTE | 2018-10-31 04:39 | NUR ---
PT TRANSFERRED FROM 3W AT 2205. DENIES PAIN. DIALYSIS PT. RESTING COMFORTABLY. NO NEEDS VOICED. CALL LIGHT WITHIN REACH. WILL CONTINUE TO PROVIDE FREQUENT OBSERVATION.
[2018-10-31 04:46] VITALS: BP 124/58
[2018-10-31 07:37] VITALS: BP 133/63
[2018-10-31 16:09] VITALS: BP 110/54
--- NOTE | 2018-10-31 17:57 | NUR ---
VASCULAR ACCESS TEAM CALLED TO PLACE PIV, USG USED PT HAS LIMITED EXTENSION OF RIGHT ARM, VESSELS SMALL AND NONCOMPRESSABLE. ABLE TO PLACE PIV IN RAC. PT IS DIALYSIS PT, DISCUSSED WITH LAILA SAUCEDO THAT PT MAY NEED TICC LINE FOR ANTIBIOTICS DUE TO LIMITED VASCULAR ACCESS
[2018-10-31 19:42] VITALS: BP 121/32
--- NOTE | 2018-11-01 02:46 | NUR ---
PATIENT ALERT AND ORIENTED X4. COOPERATIVE WITH CARE. MEDICATED FOR PAIN X1 DURING THE NIGHT. PATIENT WILL DIALYZE TODAY. DRESSING TO FISTULA DRY AND INTACT. BLOOD SUGAR MONITORED PER ORDER. TURNED FREQUENTLY. WILL MONITOR.
[2018-11-01 04:52] VITALS: BP 138/42
[2018-11-01 07:30] VITALS: BP 133/45
[2018-11-01 10:44] LABS: HEMOGLOBIN 8.6 gm/dL (14.0-18.0); MCH 28.4 pg (26.0-34.0); MCHC 31.9 g/dL (28.0-37.0); MCV 89.3 fL (80.0-100.0); RBC 3.03 mil/uL (4.50-6.00); RDW 15.6 % (10.5-14.5); WBC 7.7 thou/uL (4.0-11.0)
[2018-11-01 10:59] LABS: CALCIUM 8.9 mg/dL (8.5-10.1); CREATININE 9.4 mg/dL (0.7-1.3); PHOSPHORUS 4.8 mg/dL (2.5-4.9); POTASSIUM 4.8 mmol/L (3.5-5.1)
--- NOTE | 2018-11-01 12:08 | NUR ---
WOUND CONSULT; NO WOUNDS TO THE HEELS IDENTIFIED AT THIS TIME. DARK CALLOUSED- LIKE AREAS ONLY. NOT ENOUGH EVIDENCE FOR A PRESSURE WOUND OR DTI AT THIS TIME. RECOMMENDATIONS; OFFLOAD WITH PRAFO BOOTS AT ALL TIMES DISCUSSED WITH RN
[2018-11-01 16:07] VITALS: BP 99/63
--- NOTE | 2018-11-01 16:55 | NUR ---
ASSUMED CARE OF PT AT 0700. ASSESSMENT CHARTED. A&O,X4 SLOW SPEECH NOTED AT BASELINE. PT COMPLETED DIALYSIS AT 14:20 TODAY. IRRITABLE AFTER DIALYSIS. LOST PERIPHERAL IV ACCESS, IV TEAM AT BEDSIDE. PT REFUSED IV INSERTION, IV ABX NOT GIVEN DUE TO NO IV ACCESS. CALL TO DR. DICKINSON, WAITING TO HEAR BACK. PT IN STABLE CONDITION. WILL CONTINUE TO MONITOR UNITL EOS.
[2018-11-01 19:20] VITALS: BP 98/39
[2018-11-02 04:10] VITALS: BP 123/56
--- NOTE | 2018-11-02 05:44 | NUR ---
A/O, cooperative; c-diff result negative, isolation caution kept, will pass this on to the day nurse; afebrile; denied pain. Bed rest, will keep monitoring.
[2018-11-02 07:30] VITALS: BP 131/52
[2018-11-02 15:50] VITALS: BP 112/92
--- NOTE | 2018-11-02 16:12 | NUR ---
PT ADMITTED RELATED TO Altered Mental Status, Sepsis. CM REVIEWED CHART AND SPOKE WITH CARE TEAM. CM ATTEMPTED TO MEET WITH PT AT BEDSIDE THIS DAY BUT HE WAS SLEEPING. JOZEF CALLED PT'S SISTER/DPOA. CM ROLE INTRODUCED. SHE INDICATED SHE HAD JUST BEEN VISITING AND THAT SHE ANTICPATED PT RETURNING TO [facility] ONCE MEDICALLY STABLE. SHE INDICATED PT USES A LIFT DEVICE, HOSPITAL BED, AND WHEELCHAIR AT THE FACILITY. SHE INDICATED PT GOES TO [facility] AND THAT THEY TRANSPORT PT VIA STRETCHER. CARE TEAM INDICATED THAT PT MAY BE MEDICALLY STABLE TO DC BACK TO FACILITY TOMORROW. NIKOS IS AWARE. JOZEF ASKED DC NURSE DISCHARGE PLANNER TO FAX CLINICAL UPDATE TO FACILITY. CM TO FOLLOW INDICATED WITH DC PLANNING.
--- NOTE | 2018-11-02 18:43 | NUR ---
Assumed pt care at 7am.Pt in bed resting and sometimes nap.Assessment completed.vss.Turned and repositioned q2h for comfort.Pt has good appetite. Dr Gonzalez here,order noted.Pt has bm x2 this shift.Still waiting for blood culture result.Bed alarm in use at alltimes for safety.Family here and updates given.No verbal c/o.Will continue to monitor.
[2018-11-02 21:40] VITALS: BP 127/58
--- NOTE | 2018-11-02 23:12 | NUR ---
PT DENIED PAIN SO FAR.PT HAD LOOSE STOOL X1 SO FAR THIS SHIFT.PRAFO BOOTS IN PLACE ON HIS BLE.PER REPORT ,PT HAS NO IV ACCESS.BG MONITORED THIS SHIFT WAS 115.PT PARAPLEGIC,REPOSITIONED PER HIS REQUEST WHILE IN BED.PT RESTING ON HIS BED AT THS TIME.O2 @ 2L/NC.FALL AND ISOLATION PRECAUTIONS MAINTAINED. CALL LIGHT WITHIN REACH.
[2018-11-03 03:40] VITALS: BP 95/40
[2018-11-03] MEDS ORDERED: OXYCODONE HCL 55 MG PO (15:28)
--- NOTE | 2018-11-03 15:59 | NUR ---
patient to dc today back to [facility]. DP faxed dc papers to [facility] and to Antwan/Clemente as well as labs, consults ([facility]). Yasmeen will cb with transportation time stretcher, 2L of oxygen.
--- NOTE | 2018-11-03 16:19 | NUR ---
Pt in bed resting at the start of shift.Assessment completed.Repositioned pt in bed q2h for comfort.Hemodialysis started around 7am and end at noon.Dr Gonzalez here and dc order noted.All am meds given post dialysis and well tolerated.Pt will be returning to [facility] this evening when arrangement done by counter caser.Pt sister called and updates given.Will continue to monitor.
--- NOTE | 2018-11-03 17:05 | NUR ---
KUNAL ESCAMILLA ARRANGED FOR 1729 BY FELIX FROM [facility]. S/W PT'S SISTER PETE BY PHONE AND HER QUESTIONS WERE ANSWERED.
--- NOTE | 2018-11-05 11:20 | HC ---
[facility] [place] [address] CONSULTATION Name: TOAN FISCHER Room #: 419-P [facility] IN ..#: [id number] Admission: 10/27/18 ������������������ Attend Phys: Jocelyne Gonzalez MD Discharge: 11/03/18 ������������������ Date of : 56 Report #: [id number] THIS REPORT FOR: //name// CC: ED physician/PCP Jocelyne Gonzalez DATE OF SERVICE: 10/28/2018 INFECTIOUS DISEASE CONSULTATION ATTENDING PHYSICIAN: Jocelyne Gonzalez M.D. REASON FOR EVALUATION: Sepsis associated with encephalopathy. HISTORY OF PRESENT ILLNESS: Chart reviewed, the patient examined. This is a 58-year-old man with diabetes mellitus. There has been severe sequelae with complication of end-stage renal disease, on dialysis, who had experienced a clot in his fistula, underwent declotting, experienced marked mental status changes and had progressive weakness. He was subsequently admitted. He was found to be hypotensive. Of interest, he was actually hospitalized within the last 3-4 weeks with similar-type episode. He was confirmed to have positive blood cultures with growth of Escherichia coli and also was noted to have a positive C. diff PCR. He is somewhat more responsive today. Urine apparently was just collected and quite purulent. He states he feels not well, although he denies significant amount of pain. He is on supplemental oxygen. Denies significant cough or dyspnea at this point. He was given a dose of ceftriaxone. ALLERGIES: LISTED TO MORPHINE, CODEINE AND LYRICA. CURRENT MEDICATIONS: Lactobacillus and had been on oral vancomycin, colestipol, midodrine, pantoprazole, mirtazapine, ascorbic acid, bupropion, ondansetron, folic acid, gabapentin, dorzolamide and saccharomyces boulardii. PAST MEDICAL HISTORY: Includes diabetes mellitus type 2, non-insulin requiring; hypertension and end-stage renal disease, on dialysis. He has got cataracts, glaucoma, reflux and gastroparesis. SOCIAL HISTORY: Nonsmoker, no ethanol and no illicit drug use. FAMILY HISTORY: Noncontributory. REVIEW OF SYSTEMS: Unremarkable 10-point review of systems, except noted above in the history of present illness. PHYSICAL EXAMINATION: GENERAL: He appears chronically ill. He is pleasant [place] [address] CONSULTATION Name: TOAN FISCHER Room #: 419-P [facility] IN [facility].#: [id number] Admission: 10/27/18 ������������������ Attend Phys: Jocelyne Gonzalez MD Discharge: 11/03/18 ������������������ Date of : 56 Report #: [id number] mildly encephalopathic, undernourished. VITAL SIGNS: Temperature 98.7 with a T-max of 99.6, pulse 87, respirations 18 and blood pressure 126/62. SKIN: Warm, dry. HEENT: Normocephalic. Extraocular muscles intact. He has cloudy lenses. NECK: Supple. There is a fistula in the proximal upper extremity. LUNGS: Scattered coarse breath sounds. HEART: Irregular and perhaps a soft systolic murmur. ABDOMEN: Soft, nontender and nondistended. GENITOURINARY: Deferred. RECTAL: Deferred. LABORATORY DATA: X-ray, there is some cardiomegaly, without evidence of failure. Some chronic-appearing changes, no acute process. CBC: White count of 14.6, H and H 9.5 and 30.4 and platelets of 241,000. Electrolytes: Sodium 139, potassium 3.9, chloride 99, bicarbonate is 29, anion gap of 11 and BUN and creatinine 50 and 5.6. LFTs unremarkable. Albumin of 2.0. Total protein 6.6. ASSESSMENT AND PLAN: Acute mental status changes. He had similar-type episode roughly 3 weeks ago. At that point, he was confirmed to have a gram-negative bacteremia. Discussed with nurse. He had markedly abnormal-appearing urine that certainly could be the source. Review of the E. coli was in vitro resistant to ceftriaxone. We will adjust therapy, give him a dose of vancomycin also secondarily and we will continue oral vancomycin and await pending studies. He appears quite tenuous at this point. We will monitor expectantly. ��������������������������������������������� <ELECTRONICALLY SIGNED> ���������������������������������������� By: Ge Meade MD ��������������������������������������������� 11/05/18 1120 [id number] Ge Meade MD /nt
== END 2018-11-03 17:50 | DRG 871 ==
LOC: ER 17:17 → EROBS 21:34 → 3W 21:34 → 4E 10-30 22:00
PROVIDERS: Emergency Medicine; Internal Medicine; Internal Medicine Nephrology; ADMIT Internal Medicine
PROC: 5A1D70Z Performance of Urinary Filtration, Intermittent, Less than 6 Hours Per Day (ICD-10-PCS; principal; 2018-10-28)
PROC: 5A1D70Z Performance of Urinary Filtration, Intermittent, Less than 6 Hours Per Day (ICD-10-PCS; 2018-10-31)
DX: A41.9 Sepsis, unspecified organism (principal); N18.6 End stage renal disease; G93.41 Metabolic encephalopathy; E43 Unspecified severe protein-calorie malnutrition; N39.0 Urinary tract infection, site not specified; A04.71 Enterocolitis due to Clostridium difficile, recurrent; I12.0 Hypertensive chronic kidney disease with stage 5 chronic kidney disease or end stage renal disease; I48.91 Unspecified atrial fibrillation; H40.9 Unspecified glaucoma; K21.9 Gastro-esophageal reflux disease without esophagitis; E11.22 Type 2 diabetes mellitus with diabetic chronic kidney disease; E11.319 Type 2 diabetes mellitus with unspecified diabetic retinopathy without macular edema; E11.43 Type 2 diabetes mellitus with diabetic autonomic (poly)neuropathy; K31.84 Gastroparesis; K63.9 Disease of intestine, unspecified; I95.0 Idiopathic hypotension; D63.1 Anemia in chronic kidney disease; Z98.49 Cataract extraction status, unspecified eye; Z88.8 Allergy status to other drugs, medicaments and biological substances; Z88.6 Allergy status to analgesic agent; Z68.26 Body mass index [BMI] 26.0-26.9, adult; Z99.2 Dependence on renal dialysis
CPT/HCPCS: 10080; 10084; 10879; 32100

== ENCOUNTER 2019-01-03 16:36 | Inpatient (IN) | payer OTHER ==
[2019-01-03] VITALS (12 sets, daily range): BP systolic 83–197; BP diastolic 29–83
[~2019-01-03] VITALS: Ht 175.3 cm; Wt 72.6 kg
--- NOTE | ~2019-01-03 | EMS ---
[address] [address] EMS Patient Care Report Name: TOAN FISCHER Room #: 244-P ADM IN M.R.#: [id number] Admission: 01/03/19 Attend Phys: Jocelyne Gonzalez MD Discharge: Date of : 56 Report #: [id number] THIS REPORT FOR: //name// Report Transmitted: 01/04/2019 00:48 EMS Care Summary [place], [place]/[facility] Incident [id number] @ 01/03/2019 16:14 Incident Location [address] [place] [address] Patient TOAN FISCHER Male, 58 Years 1960 Patient Address [address] [place] [address] Patient History Behavioral/Psychiatric Disorder,Diabetes,Hypertension,Hyperlipidemia,End Stage Renal Disease (ESRD),Anemia,Peripheral Vascular Disease,Dialysis, Patient Allergies Other drug allergy,Lyrica, Patient Medications Protonix, Bupropion, ASA, Trazodone, Gabapentin, Midodrine, Wellbutrin, Tramadol, Neurontin, Enoxaparin, Remeron, Oxycodone, Chief Complaint AMS Disposition Transported No Lights/[place] Dispatch Reason Unconscious/Fainting Transported To [facility] Narrative M28, P36 responded immediately to the scene of an Unconscious. M28 arrived first on scene and initiated contact. [address] [address] EMS Patient Care Report Name: TOAN FISCHER Room #: 244-P [facility] IN ..#: [id number] Admission: 01/03/19 Attend Phys: Jocelyne Gonzalez MD Discharge: Date of : 56 Report #: [id number] Upon arrival, staff report patient had just completed a full dialysis session. He also received a round of IV abx. After completion, patient became less responsive, lethargic, then began vomiting. Since this began patient has progressed to minimally responsive. Cot next to bed and patient moved over via sheet pull. Patient maintaining his own airway. Weak carotid pulse palpated. O2 maintained via NC. Transferred out to ambulance. primary ALS assessment performed. Vitals established, and prompt transport to [facility] across the street is initiated. Contacted via radio with a short ETA< and patient report given. During transport, IV site looked for but no good peripheral access found. Arrived at and patient to ER 2. Report to RN then care released. Initial Vitals @16:25P: 118,R: 24,Pain: 0/10,GCS: 8,Glucose: 80,SpO2: 94,Revised Trauma: 9, Assessments @16:25MENTAL:Other,SKIN:HEENT:LUNG SOUNDS:ABDOMEN:PELVIS//GI:EXTREMITIES:PULSE:NEURO: Impression Altered Mental Status Procedures @16:23Oxygen FlowRate: 4 Device: Nasal Cannula (NC) Response: UnchangedSucceeded@16:24ALS Assessment Timeline 16:13,Call Received 16:13,Dispatch Notified 16:14,Dispatched 16:17,En Route 16:20,On Scene 16:21,At Patient 16:23,Oxygen FlowRate: 4 Device: Nasal Cannula (NC) Response: UnchangedSucceeded, 16:24,ALS Assessment, 16:25,BP: 82/ M,PULSE: 118,RR: 24 R,SPO2: 94 Ox,ETCO2: ,B,PAIN: 0,GCS: 8, 16:28,Depart Scene 16:30,At Destination 16:56,Call Closed Disclaimer v1.1 Copyright 2019 [employer] [facility] [address] [place] [address] EMS Patient Care Report Name: TOAN FISCHER Room #: 244-P [facility] IN M.R.#: [id number] Admission: 01/03/19 Attend Phys: Jocelyne Gonzalez MD Discharge: Date of : 56 Report #: [id number] This EMS Care Summary contains data elements from the applicable legal record (which may be displayed differently). It is designed to provide pertinent information for the following purposes: continuity of care, clinical quality, and state data reporting. The complete legal record is available to ED staff and administrators of the receiving hospital in [employer] Patient Tracker. All data is provided "as is."
[~2019-01-03 16:36] MED LIST changes: +OXYCODONE HCL 55 MG PO
[2019-01-03 17:09] LABS: HEMOGLOBIN 12.3 gm/dL (14.0-18.0); MCH 26.3 pg (26.0-34.0); MCV 87.9 fL (80.0-100.0); PLATELET COUNT 133 thou/uL (150-400); RBC 4.66 mil/uL (4.50-6.00); RDW 19.5 % (10.5-14.5); WBC 24.2 thou/uL (4.0-11.0)
[2019-01-03 17:20] LABS: CALCIUM 8.6 mg/dL (8.5-10.1); CREATININE 5.4 mg/dL (0.7-1.3); POTASSIUM 3.7 mmol/L (3.5-5.1)
[2019-01-03 17:23] LABS: MAGNESIUM 1.6 mg/dL (1.8-2.4); PHOSPHORUS 2.7 mg/dL (2.5-4.9)
[2019-01-03 17:26] LABS: ALBUMIN 2.2 g/dL (3.4-5.0); TOTAL BILIRUBIN 0.5 mg/dL (<0.1-1.0); TOTAL PROTEIN 7.4 g/dL (6.4-8.2)
[2019-01-03 17:48] LABS: ABSOLUTE NEUTROPHILS 23.2 thou/uL (1.4-8.2)
[2019-01-03 17:50] LABS: ANISOCYTOSIS 1+
[2019-01-03 18:20] LABS: APTT 30.2 Seconds (24.5-32.8); INR 1.1; PROTIME 11.1 Seconds (9.3-11.4)
--- NOTE | 2019-01-03 19:11 | NUR ---
VASCULAR ACCESS CONSULTED FOR CVAD. PT HAS FISTULA L ARM. ATTEMPTED RIJ AND REJ, UNABLE TO PASS GUIDEWIRE. PLACED PIV IN R NECK. DR SANCHES AWARE THAT CVAD UNSUCCESSFUL. FEMORAL LINE NEEDED
[2019-01-03 19:14] LABS: AMYLASE 25 U/L (25-115); LIPASE 23 U/L (73-393)
--- NOTE | 2019-01-03 20:40 | NUR ---
PATIENT ARRIVED TO ICU FROM ED. PATIENT ARRIVED INTUBATED WITHOUT ANY SEDATION. PATIENT ASSESSED AND HOOKED UP TO CONTINUOUS MONITORING. LEVOPHED RUNNING. PATIENT SITUATED IN ROOM. CONSULTS CALLED.
[2019-01-03 23:22] LABS: CALCIUM 7.4 mg/dL (8.5-10.1); CREATININE 5.2 mg/dL (0.7-1.3); POTASSIUM 3.7 mmol/L (3.5-5.1)
[2019-01-03 23:36] LABS: BE(vivo) -7.6 mmol/L (-2 to +3); HCO3 17.9 mmol/L (22.0-26.0); PCO2 VENOUS 36.3 mmHg (41.0-51.0); PO2 VENOUS 47.8 mmHg (35.0-45.0)
[2019-01-04] VITALS (30 sets, daily range): BP systolic 83–168; BP diastolic 27–133
[2019-01-04 04:32] LABS: BE(vivo) -7.9 mmol/L (-2 to +3); HCO3 16.9 mmol/L (22.0-26.0); PCO2 VENOUS 32.4 mmHg (41.0-51.0); PO2 VENOUS 38.4 mmHg (35.0-45.0)
[2019-01-04 05:36] LABS: HEMATOCRIT 39.1 % (42.0-52.0); HEMOGLOBIN 11.5 gm/dL (14.0-18.0); MCHC 29.5 g/dL (28.0-37.0); RBC 4.44 mil/uL (4.50-6.00); RDW 19.6 % (10.5-14.5); WBC 32.5 thou/uL (4.0-11.0)
[2019-01-04 05:53] LABS: POTASSIUM 2.6 mmol/L (3.5-5.1)
[2019-01-04 05:54] LABS: CALCIUM 4.9 mg/dL (8.5-10.1); CREATININE 3.5 mg/dL (0.7-1.3)
[2019-01-04 06:42] LABS: HEMATOCRIT 38.2 % (42.0-52.0); HEMOGLOBIN 11.4 gm/dL (14.0-18.0); MCHC 29.7 g/dL (28.0-37.0); MCV 87.3 fL (80.0-100.0); PLATELET COUNT 110 thou/uL (150-400); RBC 4.38 mil/uL (4.50-6.00); RDW 19.2 % (10.5-14.5); WBC 29.7 thou/uL (4.0-11.0)
[2019-01-04 07:07] LABS: CALCIUM 7.9 mg/dL (8.5-10.1); POTASSIUM 4.2 mmol/L (3.5-5.1)
[2019-01-04 07:08] LABS: CREATININE 5.7 mg/dL (0.7-1.3)
--- NOTE | 2019-01-04 08:20 | EKG ---
[place] [address] [facility] [place] [address] ELECTROCARDIOGRAM REPORT Name: AALIYAHTOAN Room #: 244-P ADM IN M.R.#: [id number] Admission: 01/03/19 Attend Phys: Jocelyne Gonzalez MD Discharge: Date of : 56 Report #: [id number] THIS REPORT FOR: //name// [facility] Test Date: 2019-01-04 Test Time: 07:39:58 Pat Name: TOAN FISCHER Department: Room: 244 Gender: M [address] Vendor: JIMBO : 1960 Requested By: Jocelyne Gonzalez Order Number: [id number] MD: Fan Cody Measurements Intervals [place] Rate: 124 P: 0 NV: QRS: 23 QRSD: 81 T: 86 QT: 316 QTc: 454 Interpretive Statements Supraventricular tachycardia Borderline ST depression Compared to ECG 10/27/2018 19:03:56 ST (T wave) deviation now present Sinus rhythm no longer present Electronically Signed On 01-04-2019 8:20:40 CDT by Fan Cody [email or web address] <ELECTRONICALLY SIGNED> By: Fan Cody MD, [facility] 01/04/19819 Fan Cody MD, [facility] /EPI
[2019-01-04 08:56] LABS: ABSOLUTE NEUTROPHILS 27.9 thou/uL (1.4-8.2); ANISOCYTOSIS 2+
--- NOTE | 2019-01-04 08:59 | NUR ---
If unable to extubate and resume diet in 48 hrs, recommend nepro at goal of 50ml/hr.
[2019-01-04 09:59] LABS: HEMATOCRIT 37.9 % (42.0-52.0); HEMOGLOBIN 11.4 gm/dL (14.0-18.0); MCH 26.3 pg (26.0-34.0); MCHC 30.1 g/dL (28.0-37.0); MCV 87.3 fL (80.0-100.0); PLATELET COUNT 116 thou/uL (150-400); RBC 4.34 mil/uL (4.50-6.00); RDW 19.4 % (10.5-14.5); WBC 25.2 thou/uL (4.0-11.0)
[2019-01-04 10:14] LABS: CALCIUM 8.1 mg/dL (8.5-10.1); CREATININE 5.7 mg/dL (0.7-1.3); POTASSIUM 4.9 mmol/L (3.5-5.1)
[2019-01-04 10:32] LABS: ABSOLUTE NEUTROPHILS 22.7 thou/uL (1.4-8.2); ANISOCYTOSIS 2+; NUCLEATED RBCS 1 /100WBC
[2019-01-04 12:03] LABS: BE(vivo) -7.9 mmol/L (-2 to +3); HCO3 16.9 mmol/L (22.0-26.0); PCO2 32.5 mmHg (35.0-45.0); PO2 107.9 mmHg (80.0-100.0); pH 7.334 (7.360-7.450); sO2 97.7 % (92.0-98.0)
[2019-01-04 13:25] LABS: URINE BLOOD 1+ (Negative); URINE CLARITY TURBID; URINE COLOR GREEN; URINE GLUCOSE-RANDOM* NEGATIVE (Negative); URINE KETONES 1+ (Negative); URINE LEUKOCYTES 3+ (Negative); URINE NITRITE NEGATIVE (Negative); URINE PROTEIN (DIPSTICK) 1+ (Negative); URINE SPECIFIC GRAVITY 1.015 (1.005-1.035); URINE UROBILINOGEN 0.2 E.U./dl (0.2-1.0)
--- NOTE | 2019-01-04 13:25 | NUR ---
CM ASSESSMENT: CASE OPENED FOR DC PLANNING. CLINICAL INFO REVIEWED. PT ADMITTED AFTER BEING UNAROUSABLE AFTER DIALYSIS AT [facility]. FEBRILE AND HYPOTENSIVE AND REQUIRED INTUBATION AND PRESSORS FOR SEPTIC SHOCK. PT SEDATED ON VENT WITH HIS 2 SISTERS IN ROOM. INFO OBTAINED FROM BOTH AND SISTER PETE FISCHER IS MEDICAL AND FINANCIAL DPOA. DOCUMENT IN CHART. PT LIVES IN LTC AT [facility]. REQUIRES ASSISTANCE WITH ADLS, FEEDS SELF. STAFF USES LIFT DEVICE AND PT ABLE TO SIT IN W/C. PETE PLANS FOR PT TO RETURN TO [facility] WHEN MEDICALLY STABLE. FUNMI SIDHU ASKED TO NOTIFY ADMISSIONS AT FACILITY.
[2019-01-04 13:33] LABS: ICTOTEST (BILI CONFIRMATORY) Negative (Negative); URINE BILIRUBIN NEGATIVE (Negative)
[2019-01-04 13:34] LABS: BACTERIA >30 Many /HPF (None Seen); CASTS None Seen /LPF (None Seen); CRYSTALS None Seen /LPF (None Seen); SQUAMOUS None Seen /LPF (0-3); URINE RBC 3-10 Few /HPF (0-2); URINE WBC >25 Many /HPF (0-5)
--- NOTE | 2019-01-04 16:07 | NUR ---
PT IS FROM [facility] FAXED CLINICAL UPDATE TO FACILITY SPOKE WITH CELESTE IN ADM SHE RECEIVED UPDATE. DCP TO FOLLOW.
--- NOTE | 2019-01-04 16:33 | NUR ---
ASSESSMENTS AND INTERVENTIONS DOCCUMENTED. PATIENT REMAINS ON SEDATION AND MECHANICAL VENTILATION. DPOA AT BEDSIDE. NURSE UNABLE TO GET A PROPER BLOOD PRESSURE READING CONSISTENTLY. DR. DUVALL PAGED AND DR. DUVALL ROUNDED ON PATIENT. FEMORAL ARTERIAL LINE PLACED BY DR. DUVALL. PATIENT TOLERATED PROCEDURE. PATIENT CONTINUES TO RUN A TEMP. TYLENOL ADMINSITERED AND TEMPRETURE REASSESSED. FAMILY EDUCATED ON PLAN OF CARE AND TREATMENTS. FAMILY EXPRESSED UNDERSTANDING. WILL CONTINUE TO MONITOR PATIENT. THE PLAN OF CARE IS TO CONTINUE TO MAINTAIN AIRWAY AND TREAT INFECTION.
[2019-01-05 05:32] LABS: BE(vivo) -6.2 mmol/L (-2 to +3); HCO3 18.9 mmol/L (22.0-26.0); PCO2 36.1 mmHg (35.0-45.0); PO2 123.3 mmHg (80.0-100.0); pH 7.337 (7.360-7.450); sO2 98.3 % (92.0-98.0)
[2019-01-05 05:46] LABS: WBC 19.5 thou/uL (4.0-11.0)
[2019-01-05 05:48] LABS: HEMOGLOBIN 10.3 gm/dL (14.0-18.0); MCH 26.2 pg (26.0-34.0); MCHC 30.3 g/dL (28.0-37.0); MCV 86.4 fL (80.0-100.0); PLATELET COUNT 96 thou/uL (150-400); RBC 3.94 mil/uL (4.50-6.00); RDW 19.3 % (10.5-14.5)
[2019-01-05 06:02] LABS: CREATININE 6.8 mg/dL (0.7-1.3)
[2019-01-05 08:39] LABS: ABSOLUTE NEUTROPHILS 17.4 thou/uL (1.4-8.2); ANISOCYTOSIS 2+; NUCLEATED RBCS 1 /100WBC; PLATELET ESTIMATE SLIGHTLY DECREASED
[2019-01-06 05:36] LABS: HEMOGLOBIN 9.6 gm/dL (14.0-18.0); PLATELET COUNT 78 thou/uL (150-400); WBC 14.5 thou/uL (4.0-11.0)
[2019-01-06 05:38] LABS: HEMATOCRIT 31.5 % (42.0-52.0); MCHC 30.4 g/dL (28.0-37.0); MCV 85.5 fL (80.0-100.0); RBC 3.68 mil/uL (4.50-6.00); RDW 18.9 % (10.5-14.5)
[2019-01-06 08:44] LABS: ABSOLUTE NEUTROPHILS 13.8 thou/uL (1.4-8.2); ANISOCYTOSIS 2+
[2019-01-06 09:07] LABS: HEPATITIS B SURFACE AG Negative (Negative)
--- NOTE | 2019-01-06 09:46 | HC ---
[facility] [address] [place] [address] CONSULTATION Name: TOAN FISCHER Axel Room #: 244-P [facility] IN M.R.#: [id number] Admission: 01/03/19 Attend Phys: Jocelyne Gonzalez MD Discharge: Date of : 56 Report #: [id number] THIS REPORT FOR: //name// CC: ED physician/PCP Jocelyne Gonzalez REASON FOR CONSULTATION: End-stage renal disease. REASON FOR PRESENTATION: Transferred from his [facility] post-seizure. HISTORY OF PRESENT ILLNESS: This is a 58-year-old who is not able to provide me with history as he is currently intubated. He is well known to me. He is known to have diabetes mellitus, hypertension with all complications related to that including end-stage renal disease. He is also known to have recent bacteremic episodes with E. coli. He had his AV graft or his AV fistula yesterday declotted. He then had his dialysis. At the end of the dialysis, he started to have seizure. He presented for further evaluation and was intubated in the Emergency Room. I am being consulted to manage his end-stage renal disease. PAST MEDICAL HISTORY: Extensive and includes the followin. ESRD, maintained on hemodialysis. 2. Diabetes mellitus. 3. Hypotension. 4. Recent bacteremic episodes. 5. Heel ulcers. 6. Multiple EGDs. 7. Gastroparesis. REVIEW OF SYSTEMS: Unobtainable given the patient's current mental status. ALLERGIES: MORPHINE, CODEINE. FAMILY HISTORY: Diabetes mellitus and hypertension from the chart. SOCIAL HISTORY: [facility] resides [facility]. PHYSICAL EXAMINATION: GENERAL: He is intubated, maintained on Levophed. VITAL SIGNS: Temperature is 38.9, blood pressure is 116/38. HEAD AND NECK: ET tube. CHEST: Decreased air entry bilaterally. CARDIOVASCULAR: No rub detected. ABDOMEN: Soft, unable to evaluate for tenderness. LOWER EXTREMITIES: Edema with old heel ulcers. LABORATORY DATA: Reviewed. White blood cell count is 29.7, platelet is 110. Sodium 137, potassium 4.2, BUN 23, creatinine 5.7 gram-negative rods present in [address] [address] CONSULTATION Name: TOAN FISCHER Room #: 244-P ADM IN ..#: [id number] Admission: 01/03/19 Attend Phys: Jocelyne Gonzalez MD Discharge: Date of : 56 Report #: [id number] his blood. ASSESSMENT AND IMPRESSION AND PLAN: 1. Septic shock. 2. End-stage renal disease. 3. Diabetes mellitus. 4. Chronic hypertension. 5. The patient is in complete septic shock with gram-negative rods growing in his blood. He received appropriate amount of fluid yesterday. He is still maintained on norepinephrine. His electrolytes are all at target. He dialyzed without any issues yesterday. Continue with the current hemodynamic support. No need for dialysis today. Infectious Disease consultation. <ELECTRONICALLY SIGNED> By: Soledad Silva MD 01/06/19 0946 0757 [id number] Soledad Silva MD /nt
--- NOTE | 2019-01-06 19:32 | NUR ---
[facility] CARE AT 0700 THIS AM. REMAINS ORALLY INTUBATED WITH VENT SETTINGS UNCHANGED. PRECIDEX WEANED TO 0.8, OPENS EYES AND MOVES ARMS TOWARDS ETT WHEN STIMULATED. MEAN ARTERIAL PRESSURE IMPROVED OFF PRESSORS. SISTER AT BEDSIDE AND REASSURANCE GIVEN AND UPDATED TO THE PLAN OF CARE. TUBE FEEDING STARTED PER ORDER.
--- NOTE | 2019-01-06 21:02 | NUR ---
ID rounded on pt, saw the OGT coiled in pt's mouth, which is different from initial assessment. Placement was checked, and confirmed by auscultation and aspiration of 50 ml's of residual. The residual was returned, along with 50 ml's of free water to maintain patency of tubing. The TF was stopped at this time, will reassess in two hours and restart as appropriate. Pt may need some reglan, will continue to monitor.
[2019-01-07 00:34] VITALS: BP 101/43
[2019-01-07 02:56] VITALS: BP 131/48
[2019-01-07 05:08] VITALS: BP 123/34
[2019-01-07 07:37] VITALS: BP 76/43
--- NOTE | 2019-01-07 10:45 | NUR ---
HD TODAY. REMAINS ON VENT. PER RN, ATTEMPT TO WEAN SEDATION TODAY. UPDATE TO [facility] PLACE RESIDES IN LTC AT FACILITY. DIALYZES AT [facility].
--- NOTE | 2019-01-07 12:15 | NUR ---
[facility] care at 0700 this am. hemodialysis in progress. Temp noted to be low, Yael Hugger blanket applied. Precidex drip decreased and patient sl responsive when sister in at bedside. Yael Hugger off at 1145. Large amt of residual noted at initial assessment, 1200 blood glucose 66. Tube feeding residual only 15 ml and tube feeding restarted. D50 given per order for low blood glucose. Sister discussing with case management coordinator arrangements for care once patient discharged from the hospital,
[2019-01-07 13:20] VITALS: BP 69/31
[2019-01-07 15:47] VITALS: BP 76/33
--- NOTE | 2019-01-07 16:17 | NUR ---
PATIENT IS NOT TOLERATING TUBE FEEDINGS RESIDUAL IS 175 ML. YRN STEPHEN REMOVED, SISTER UPDATED TO POC AND REASSURANCE GIVEN. DROWSEY AND FOLLOWS SIMPLE COMMANDS.
--- NOTE | 2019-01-07 16:57 | HC ---
[facility] [place] [address] CONSULTATION Name: TOAN FISCHER Axel Room #: 244-P [facility] IN M.R.#: [id number] Admission: 01/03/19 Attend Phys: Jocelyne Gonzalez MD Discharge: Date of : 56 Report #: [id number] THIS REPORT FOR: //name// CC: ED physician/PCP Jocelyne Gonzalez DATE OF SERVICE: 01/04/2019 INFECTIOUS DISEASE CONSULTATION REASON FOR CONSULTATION: I was asked to evaluate concerning septic shock. HISTORY OF PRESENT ILLNESS: The patient is a 58-year-old assisted resident, end-stage renal disease, diabetes, who had an E. coli bacteremia in October of this past year as well as C. difficile colitis. During that hospital stay, it was unclear whether it was urinary tract source or left upper extremity AV graft. CT scan of the abdomen did not show any evidence of bowel wall ischemia. He was treated with meropenem and enteral vancomycin. Clinically improved and was discharged. He now presents emergently from dialysis where following completion, he developed emesis and seizure activity. Transported to [facility] where he was found to be febrile and respiratory failure and shock. He received IV fluids, intubated, now on 60% FiO2. Cultures were obtained now are showing gram-negative bacilli. The patient remains obtunded. He has a right IJ catheter in place. He has a right femoral art line in place. He is orally intubated with OG tube to suction. There has been no further vomiting. He has had no report of diarrhea. Indwelling Groves catheter was placed with evidence of pyuria and bacteriuria on urinalysis. He has scars from previous bilateral heel wounds. No evidence of active decubiti. No further seizure activity noted. He is being set up for an EEG. REVIEW OF SYSTEMS: Ten-point review of systems was negative other than what is described above. ALLERGIES: MORPHINE, CODEINE, LYRICA. MEDICATIONS: As noted on his MAR, now including vancomycin, Zosyn and Levaquin. PAST MEDICAL HISTORY: Bilateral heel decubiti, diabetes, hypertension, atrial fibrillation, glaucoma, gastroesophageal reflux, cataract surgery, gastroparesis, contractures. Peripheral neuropathy, peripheral vascular disease. FAMILY HISTORY: Noncontributory. SOCIAL HISTORY: Nonsmoker, no significant alcohol intake. [address] [address] CONSULTATION Name: TOAN FISCHER Room #: [facility] IN .R.#: [id number] Admission: 01/03/19 Attend Phys: Jocelyne Gonzalez MD Discharge: Date of : 56 Report #: [id number] PHYSICAL EXAMINATION: VITAL SIGNS: Temperature 101.6 axillary, blood pressure 133/52, heart rate 80 on Levophed drip, vasopressin and Precedex. He is on FiO2 of 60%. SKIN: Without rash or decubitus. No palpable adenopathy. HEENT: Eyes with conjunctivitis. Mouth orally intubated. No lesions noted. NECK: Supple. LUNGS: Coarse breath sounds bilaterally. HEART: Regular, without murmur, gallop or rub. ABDOMEN: Soft, nontender, no hepatosplenomegaly or mass appreciated. GENITOURINARY: External genitalia without lesion or mass. RECTAL: Not performed. EXTREMITIES: Left upper extremity AV fistula had two sutures visible. Question whether this has been manipulated within recent past. Able to move all extremities. Otherwise, nonresponsive to verbal stimulus. Did have withdrawal from pain. He was obtunded. LABORATORY STUDIES: Sodium 134, potassium 4.9, bicarbonate 22, creatinine 5.7. Liver function tests normal. Albumin at 2.2. Troponin less than 0.06. BNP 10,789, lactate 6.3, hemoglobin 11.4, WBC 25.2, platelet 116,000 and 3% bands. Urinalysis, pyuria and bacteriuria. ABG on 60% FiO2, pO2 107, pCO2 of 32, pH 7.33, lactate 3.6. Blood cultures 2/2 showing gram-negative bacilli. Sputum culture is pending. Urine culture is pending. Chest x-ray, basilar atelectasis. CT scan of the head, atrophy with no acute infarct or mass. Opacification of the left maxillary sinus with partial opacification of left mastoid. IMPRESSION: 1. Gram-negative septic shock in the setting of end-stage renal disease. 2. Respiratory failure. 3. Left maxillary and mastoid sinusitis. 4. Leukocytosis. 5. Seizure disorder and postictal state with obtundation. 6. Source of his sepsis is yet to be determined whether we are dealing with urinary tract, GI tract or left upper extremity AV graft. RECOMMENDATIONS: 1. We will continue full ICU support with vasopressors, fluids, acute dialysis, ventilatory support and control of seizures. 2. We will await blood culture results and match up with urine culture as well as compared to previous bacteremias. I am still concerned that the left upper extremity AV graft may be a source. 3. We will continue broad antibiotic coverage including meropenem. We will discontinue Levaquin due to his seizure disorder. Continue with vancomycin pending final cultures. I have discussed with ICU team. [address] [address] CONSULTATION Name: TOAN FISCHER Room #: 244-P ADM IN M.R.#: [id number] Admission: 01/03/19 Attend Phys: Jocelyne Gonzalez MD Discharge: Date of : 56 Report #: [id number] 4. Serial laboratory studies and adjust antibiotic coverage for his renal failure. <ELECTRONICALLY SIGNED> By: José Miguel Slaughter MD 01/07/19 1657 [id number] José Miguel Slaughter MD /nt
--- NOTE | 2019-01-07 17:23 | NUR ---
FAXED CLINICAL UPDATE TO [facility] SPOKE WITH CELESTE IN ADM SHE RECEIVED UPDATE. DCP TO FOLLOW.
[2019-01-08] VITALS (17 sets, daily range): BP systolic 82–144; BP diastolic 40–118
[2019-01-08 05:17] LABS: BE(vivo) -2.3 mmol/L (-2 to +3); HCO3 21.9 mmol/L (22.0-26.0); PCO2 35.2 mmHg (35.0-45.0); PO2 99.2 mmHg (80.0-100.0); pH 7.412 (7.360-7.450); sO2 97.6 % (92.0-98.0)
[2019-01-08 05:20] LABS: BASOPHILS 0.1 % (0.0-2.0); EOSINOPHILS 0.6 % (0.0-3.0); HEMATOCRIT 31.8 % (42.0-52.0); HEMOGLOBIN 9.8 gm/dL (14.0-18.0); LYMPHOCYTES 5.1 % (24.0-44.0); MCH 26.4 pg (26.0-34.0); MCHC 30.9 g/dL (28.0-37.0); MCV 85.6 fL (80.0-100.0); MONOCYTES 6.7 % (1.0-8.0); PLATELET COUNT 72 thou/uL (150-400); POLYS 87.5 % (36.0-66.0); RBC 3.71 mil/uL (4.50-6.00); RDW 19.2 % (10.5-14.5); WBC 10.3 thou/uL (4.0-11.0)
[2019-01-08 05:57] LABS: ALBUMIN 1.4 g/dL (3.4-5.0); CALCIUM 7.7 mg/dL (8.5-10.1); CREATININE 4.7 mg/dL (0.7-1.3); POTASSIUM 3.7 mmol/L (3.5-5.1); TOTAL BILIRUBIN 0.5 mg/dL (<0.1-1.0); TOTAL PROTEIN 6.4 g/dL (6.4-8.2)
--- NOTE | 2019-01-08 08:23 | NUR ---
ASSUME CARE 1900. PT ALERT TO VERBAL STIMULUS. UNABLE TO ASSESS PAIN. STABLE VITALS ST NOTED THROUGH THE NIGHT. TUBE FEEDING HELD DUE TO INCREASE RESIDUAL. RESIDUAL 100ML NOTED. PT NOT TOLERAITNG FEEDING WELL.PROGRESSING SLOWLY WITH POC. PLAN IS WEEK OFF VENT AND PLACE PT ON CPAP. ASSESSMENT CHARTED. WILL CONTINUE TO FOLLOW.
--- NOTE | 2019-01-08 08:30 | NUR ---
Pt is on light sedation. Precedex 1.2mcg. Followed commands. L eye blind but R eye didn't react to light. SR on monitor. Edema on LE, elda and generalized edema too. Pulses can be palpitaed by doppler. No Thrill can be palpated either. A line in place on R groin. Could not elevate pt's R leg due to [place]. LS coarse. Tube Feeding was held since yesterday morning. Groves in place but no production of Urine. Will continue to monitor
[2019-01-08 11:20] LABS: BE(vivo) -1.4 mmol/L (-2 to +3); PCO2 37.7 mmHg (35.0-45.0); PO2 99.4 mmHg (80.0-100.0); pH 7.404 (7.360-7.450); sO2 97.6 % (92.0-98.0)
--- NOTE | 2019-01-08 17:08 | HC ---
[facility] [place] [address] CONSULTATION Name: TOAN FISCHER Room #: 244-P [facility] IN .R.#: [id number] Admission: 01/03/19 Attend Phys: Jocelyne Gonzalez MD Discharge: Date of : 56 Report #: [id number] THIS REPORT FOR: //name// CC: ED physician/PCP Jocelyne Gonzalez DATE OF SERVICE: 01/04/2019 HISTORY OF PRESENT ILLNESS: This is a 58-year-old female patient who was discussed with the nurses last night multiple times and the patient was discussed with the nurses this morning. This patient was admitted with what looks like seizure. He also has sepsis. I talked to the nurses in detail and the patient was not able to have a CT scan last night and it was done today. It does not show any acute changes. He has numerous problems as will be summarized later on. REVIEW OF SYSTEMS: Indicates he has end-stage renal disease; he is on hemodialysis. He has history of diabetes, gastroparesis, hypertension. No family member is here to get the history. I talked to the nurses last night and this morning. He is being seen by ID. He has a history of chronic head injury and some cervical sprain and diabetes. This was his relevant 14-point review of system. PAST MEDICAL HISTORY: Positive for end-stage renal disease. FAMILY HISTORY: Negative for any early age stroke. SOCIAL HISTORY: Unavailable. PHYSICAL EXAMINATION: Pretty limited. He is sedated with Precedex. He does not respond, he has no reflexes and in fact has no response. He is intubated. His temperature is 101, his pulse rate is 122. Laboratory indicates a white count of 25.2, platelet count is 116. CT scan as described above. Pulses are difficult to feel. That is all the examination, which is possible. IMPRESSION: Very difficult to form in this patient. He is septic. He is predisposed to have neurological event. We will check an EEG on this patient and see if we have to add something. Thank you very much for this referral and if you have any question, please feel free to contact me. <ELECTRONICALLY SIGNED> By: Suleman Ellis MD 01/08/19 1708 [id number] [id number] Suleman Ellis MD /nt
--- NOTE | 2019-01-08 17:09 | EEG ---
[facility] [place] [address] ELECTROENCEPHALOGRAM Name: TOAN FISCHER Room #: 244-P ADM IN M.R.#: [id number] Admission: 01/03/19 Attend Phys: Jocelyne Gonzalez MD Discharge: Date of : 56 Report #: [id number] THIS REPORT FOR: //name// CC: FAM physician/PCP Jocelyne Gonzalez This patient is being evaluated for unresponsiveness. EEG was done by placing the electrode by standard 10-20 system of electrode placement. Both referential and sequential montages were used for recording. Background activity goes up to about 5-6 Hz and 30 microvolt. Photic stimulation is unremarkable. IMPRESSION: This is an abnormal EEG because it is disorganized and poorly formed. That will be consistent with encephalopathy. However, similar finding can occur with sedation. It might be desirable to do the EEG when the patient is not sedated. No active epileptiform activity was noticed and well-defined cortical activity was noticed. <ELECTRONICALLY SIGNED> By: Suleman Ellis MD 01/08/19 1709 1018 [id number] Suleman Ellis MD /nt
--- NOTE | 2019-01-08 23:42 | NUR ---
DISCUSSED WITH DR. DUVALL REGARDING PT HR 120s, AND RR WILL GO FROM 20s TO MID TO UPPER 30s AT TIMES. HE SAID THAT HE KNEW DAY SHIFT WAS SUCTIONING ALOT OF ORAL SECRETIONS OUT TODAY. SO WILL GO IN ON MY MIDNIGHT ASSESSMENT AND SUCTION PT TO SEE IF THAT HELPS HIS RR. WILL CONTINUE TO MONITOR PT STATUS AND KEEP DR. DUVALL AWARE.
[2019-01-09] VITALS (21 sets, daily range): BP systolic 82–110; BP diastolic 35–55
[2019-01-09 05:40] LABS: HEMATOCRIT 29.9 % (42.0-52.0); HEMOGLOBIN 9.2 gm/dL (14.0-18.0); MCH 25.9 pg (26.0-34.0); MCHC 30.6 g/dL (28.0-37.0); MCV 84.6 fL (80.0-100.0); RBC 3.54 mil/uL (4.50-6.00); RDW 18.8 % (10.5-14.5); WBC 9.9 thou/uL (4.0-11.0)
[2019-01-09 05:54] LABS: ALBUMIN 1.5 g/dL (3.4-5.0); CREATININE 5.9 mg/dL (0.7-1.3); PHOSPHORUS 3.9 mg/dL (2.5-4.9); POTASSIUM 3.6 mmol/L (3.5-5.1)
[2019-01-09 06:41] LABS: BE(vivo) -1.4 mmol/L (-2 to +3); HCO3 23.5 mmol/L (22.0-26.0); PCO2 40.6 mmHg (35.0-45.0); PO2 63.4 mmHg (80.0-100.0); pH 7.381 (7.360-7.450); sO2 91.9 % (92.0-98.0)
--- NOTE | 2019-01-09 06:57 | NUR ---
AROUND 0620 DOING SOME PT CARES, HAD PT COUGH AND STIMULATE GAG WITH YAUNKER TO PRODUCE COUGH TO SUCTION SECRETIONS. PT DECOMPENSATING RR INCREASED 50-60s AT TIMES. HR UP TO 130s. PT APPEARED TO HAVE DIFFICULTY BREATHING. CALL PLACED TO RT TO COME HELP WITH PT ASSESSMENT AND CARES. ALSO CALL TO DR. DUVALL GOT ABG AND CXR. ABG RESULTS DECENT. RT WILL SUCTION PT TO PULL OUT DEEPER SECRETIONS. REPORT GIVEN BACK TO SANDRA ON .
--- NOTE | 2019-01-09 08:21 | NUR ---
0730-Pt alert, followed commands but looked very distress due to lots of secretion on the back of his throat. Pt is on BIPAP after his extubation. HR 130s. RR 20s to 30s. BP 131/89, based on A-line on R groin. CVP numbers between 9 -12. D10W is running @25 due to low BS. LS very coarse. L leg was elevated but R Leg was minimally elevated due to A-line. Will continue to monitor.
[2019-01-10] VITALS (12 sets, daily range): BP systolic 92–117; BP diastolic 40–55
--- NOTE | 2019-01-10 03:04 | NUR ---
ASSUMED PT CARE AROUND 1900. PT DROWSY BUT EASILY ARROUSABLE. PT SLEPT MOST OF THE NIGHT. PT TACHYPENIC AND TACHYCARDIC BUT BP STABLE. AFEBRILE. O2 SATS STABLE ON BIPAP. PT HAS REFUSED ORAL CARE MOST OF THE NIGHT. REPOSITIONED ABLE TO PREVENT SKIN BREAKDOWN. ART LINE TO RT GROIN. PT RESTING QUIETLY IN BED AT THIS TIME. RR SLIGHTLY IMPROVED. PT WAS INCONTINENT OF 2 BOWEL MOVEMENTS SO FAR TONIGHT. PROGRESSING SLOWLY TOWARD POC GOALS. WILL CONTINUE TO MONITOR FURTHER.
[2019-01-10 05:43] LABS: HEMATOCRIT 28.3 % (42.0-52.0); HEMOGLOBIN 8.8 gm/dL (14.0-18.0); MCH 26.1 pg (26.0-34.0); MCHC 31.1 g/dL (28.0-37.0); RBC 3.37 mil/uL (4.50-6.00); RDW 18.5 % (10.5-14.5); WBC 7.7 thou/uL (4.0-11.0)
[2019-01-10 05:57] LABS: ALBUMIN 1.7 g/dL (3.4-5.0); CALCIUM 8.3 mg/dL (8.5-10.1); CREATININE 4.7 mg/dL (0.7-1.3); PHOSPHORUS 3.3 mg/dL (2.5-4.9); POTASSIUM 3.1 mmol/L (3.5-5.1)
--- NOTE | 2019-01-10 16:16 | NUR ---
FAXED CLINICAL UPDATE TO [facility] SPOKE WITH CELESTE IN ADM SHE RECEIVED UPDATE. DCP TO FOLLOW.
--- NOTE | 2019-01-10 18:24 | NUR ---
WAS ON BIPAP EARLIER TODAY AND WAS SWITCHED OVER TO FS THIS AFTERNOON AND IS TOLERATING WELL. TACHYCARDIC AND TACHYPNIC AND PHYSICIANS AWARE. SCHEDULED FOR DIALYSIS TOMORROW. AV FISTULA LUE WITH BRUIT AND THRILL. A-LINE RT. GROIN. WILL CONTINUE WITH POC.
[2019-01-11] VITALS (26 sets, daily range): BP systolic 88–180; BP diastolic 39–134
[2019-01-11 05:19] LABS: CALCIUM 8.1 mg/dL (8.5-10.1)
[2019-01-11 05:34] LABS: CREATININE 5.7 mg/dL (0.7-1.3)
--- NOTE | 2019-01-11 06:28 | NUR ---
Received report from SHERYL Levine and assumed patient care. Patient remains having loose stools. Patient changed from face mask to high flow NC at 6L and tolerated it well. Groves removed as patient is anuric. Patient vs remained stable and no acute events occurred. Family updated on care plan.
--- NOTE | 2019-01-11 11:31 | NUR ---
DROWSY BUT EASILY AROUSABLE, WHEN AWAKE FOLLOWS COMMANDS AND NODS TO Y/N QNS. WAS ON DIALYSIS EARLIER TODAY AND TOLERATED WELL. VITALS STABLE. A-LINE RT GROIN. ON 6L HF CANNULA. SUCTIONED WITH YAUNKER SEVERAL TIMES. DID NOT PASS SWALLOWING EVAL WITH SPEECH THERAPIST. WILL CONTINUE WITH POC.
--- NOTE | 2019-01-11 12:21 | NUR ---
DR. CHO ROUNDED THIS AFTERNOON, ORDERS RECEIVED TO DC A-LINE, NOTIFIED OF NEED TO ADDRESS NUTRITION, STATED TO CALL RENAL MD FOR ORDERS. CALL PLACED TO DR. RODRIGUEZ, TALKED WITH HIM FOR RECOMMENDATIONS AND STATED TO HAVE DR. DICKINSON ADDRESS THE ISSUE AND STATED NOT TO START PATIENT ON TPN. WILL GIVE THIS INFORMATAION TO DR. ALOK NICK HE ROUNDS.
--- NOTE | 2019-01-11 15:57 | NUR ---
FOLLOWING FOR DC PLANNING. CLINICAL INFO REVIEWED. PT EXTUBATED A COUPLE DAYS AGO, REQUIRING BIPAP SINCE, AND TODAY TOLERATING NC O2 4-6 LITERS. SLEEPING WHEN APPROACHED ROOM. MET WITH PT'S SISTER/NIKOS FREEMAN. SPENT TIME WITH PT'S SISTER LUCILLE 01/07 AND LUCILLE INDICATED PT MAY WANT TO CHANGE DIALYSIS CLINICS. BOTH LUCILLE AND PETE INDICATE THIS WOULD BE PT'S DECISION. PETE INDICATES TODAY PT IS GROGGY AND INFORMED HER I WOULD CHECK WITH PT TOMORROW TO SEE IF HE IS ABLE TO DISCUSS RETURNING TO [facility] VS CHANGING. INFORMED PETE GUILLAUME IS ALTERNATE LTC WITH IN [facility]. WILL FOLLOW.
--- NOTE | 2019-01-11 17:56 | NUR ---
TALKED TO DR. DICKINSON THIS EVENING REGARDING NUTRITION, DR. DICKINOSN STATED HE WILL TALK TO PATIENT'S SISTERS REGARDING FEEDING TUBE/PEG? IVF CONTINUED PER HIS ORDER.
[2019-01-12] VITALS (22 sets, daily range): BP systolic 81–122; BP diastolic 35–84
[2019-01-12 05:56] LABS: CALCIUM 8.1 mg/dL (8.5-10.1); POTASSIUM 3.1 mmol/L (3.5-5.1)
--- NOTE | 2019-01-12 06:13 | NUR ---
Pt slept off and on through the night with stable VS. PRN fentanyl given for breakthrough restlessness and c/o generalized discomfort with desired effect achieved. SpO2 adequate on 3L of O2 and pt seems more alert this morning. Am lab results noted, continue with POC.
--- NOTE | 2019-01-12 09:11 | NUR ---
If pt does not pass swallow eval, recommend start enteral nutrition of nepro at 20ml/hr and goal of 50ml/hr
--- NOTE | 2019-01-12 15:00 | NUR ---
PATIENT TO [facility] FOR WBC TAG STUDY VIA BED WITH MONITOR AND O2. SPEECH IN EVALUATION DONE FOR SWALLOWING BUT STILL WEAK. SISTER STATES THAT WE ARE GIVING HIM FOOD THAT HE DOES NOT LIKE, STATES THAT HE LIKES JELLO AND SHE WANTS TO GIVE IT TO HIM. PATIENT SLEEPING AFTER RETURNING FROM [facility]. SISTER STATES THAT SHE WANTS TO WAIT TO SEE IF HE GET MORE AWAKE TO DO THE SWALLOW STUDY. BLOOD GLUCOSE LOW AND D50 GIVEN PRIOR TO GOING TO [facility].
--- NOTE | 2019-01-12 15:53 | NUR ---
MET WITH PT (SLEEPING) AND DPOA SISTER PETE. PETE INDICATES PT WAS ALERT/AWAKE THIS AM AND SHE AND HE HAD DISCUSSION ABOUT CURRENT DIALYSIS CLINIC AND LTC FACILITY. PT INDICATED TO SISTER HE CHOOSES TO STAY WITH CURRENT DIALYSIS CLINIC ([facility]) AND RETURN TO LTC AT [facility] WHEN MEDICALLY READY. REQUESTED DC ENGINEERING TEACHER UPDATE DIALYSIS CLINICA AND LTC FACILITY.
--- NOTE | 2019-01-12 20:01 | NUR ---
PATIENT HAS WEAK COUGH, SOUNDS MORE CONGESTED AND ATTEMPT TO SUCTION ORALLY. DR DICKINSON IN AND UPDATED TO THE SISTER'S RESPONSE.
[2019-01-13] VITALS (27 sets, daily range): BP systolic 93–131; BP diastolic 38–76
--- NOTE | 2019-01-13 06:00 | NUR ---
SLEPT AT INTERVALS TONIGHT. REMAINS IN SINIS TACH. LUNGS COARSE RHONCHI BILAT ORALLY SUCTIONED FOR A MOD AMT SPUTUM. BATHED. S/C FOR DIALYSIS THIS AM. A VERY SWEET GENTLEMAN. WILL CONT TO CORRINAIOR.
[2019-01-13 06:11] LABS: HEMATOCRIT 28.2 % (42.0-52.0); HEMOGLOBIN 8.6 gm/dL (14.0-18.0); MCH 25.6 pg (26.0-34.0); MCHC 30.5 g/dL (28.0-37.0); MCV 83.9 fL (80.0-100.0); RBC 3.36 mil/uL (4.50-6.00); RDW 19.2 % (10.5-14.5); WBC 4.8 thou/uL (4.0-11.0)
[2019-01-13 06:22] LABS: CALCIUM 7.9 mg/dL (8.5-10.1)
[2019-01-13 06:25] LABS: CREATININE 6.1 mg/dL (0.7-1.3)
--- NOTE | 2019-01-13 17:56 | NUR ---
Patient dialyzed this a.m. 2L removed; tolerated well. VSS, see flowsheet, soft BP 90s at times, asymptomatic. Respirations easy and unlabored; no acute distress noted. Continue to wean O2 as tolerated. Bipap PRN. Repositioned for sacal comfort. PRN pain medications administered as directed. Oliguric. MARCEL fistula stable. NPO; failed swallow evaluation. Encouraged frequent repositioning; favors right side lying. CLRT. Continued reinforcement. Small smear; +flatus. Sister at bedside throughout the day. Continued progression towards current plan of care goals. Report called to SHERYL Amanda. No acute events to report.
[2019-01-14] VITALS (7 sets, daily range): BP systolic 86–126; BP diastolic 32–68
--- NOTE | 2019-01-14 05:24 | NUR ---
Assumed pt care at 1900. Pt is A/OX4. VSS.Max assist with ADL's/transfers. Incontinent of B&B,is oliguric,moisture barrier applied to buttocks and interdry fabric on abd folds. Pt is NPO, D10 infusing via Right subclavian catheter without any problems. rounded on pt at HS,stated will re-eval pt this morning for possible Dobhoff placement for nutrition;failed video swallow 01/13. Sister at the bedside for the night. C/o back pain/BLE,repositioned every 2 hrs. Resting quietly at this time, no distress high flow O2 on @ 2L/NC. Fall precautions in plce,will continue to monitor pt.
--- NOTE | 2019-01-14 16:38 | NUR ---
SW reviewed chart and spoke with nursing and attending physician. Pt was transferred to from ICU. Pt had video swallow today and has been started on a diet. No weekend discharge planned. SW updated Fadumo at [facility]. Plan is for pt to return to [facility] and resume dialysis at [facility] when medically stable. CLAIRE is following to assist as needed with discharge planning.
--- NOTE | 2019-01-14 19:45 | NUR ---
ASSUMED PATIENT CARE AT 0700. A/O X2. DROWSY. PASSED VIDEO SWALLOW TEST. TOLERATED DIET. POOR APPETITE. ASSISTED PATIENT TURN. WILL HAVE HD TOMORROW. SLOWLY TOWARDS POC GOALS.
[2019-01-15] VITALS (7 sets, daily range): BP systolic 83–124; BP diastolic 33–54
--- NOTE | 2019-01-15 04:59 | NUR ---
SLEPT PART OF SHIFT. TYLENOL GIVEN PRN FOR COMPLAINTS OF BUTTOCKS, LEGS AND BACK AT TIMES. WORKING ON GOALS AND PLAN OF CARE FOR NOC. NOT PROGRESSING TOWARDS DISCHARGE GOALS AT THIS TIME. INCONTINENT OF 4 LOOSE STOOLS TONIGHT. ON IV REGLAN. BLOOD PRESSURES 80'S SYSTOLIC AND STATES THAT IS USUALLY WHERE HE RUNS. TURNED EVERY 2 HOURS FOR COMFORT AND SKIN CARE. DAUGHTER AT BEDSIDE. CONTINUE TO ASSES.
--- NOTE | 2019-01-15 14:05 | NUR ---
RIGHT IJ CENTRAL LINE DRESSING HAS BEEN NEEDING DAILY DRESSING CHANGES DUE TO INCREASED SECREATIONS CAUSING THE DRESSING TO BECOME WET AND LOOSE.IF CUTLET MAKER PORK ANTIBIOTICS ARE NEEDED I WOULD SUGGEST A TICC LINE TO MOVE INSERTION SITE AWAY FROM NECK AND HELP PREVENT A BLOOD STREAM INFECTION.
--- NOTE | 2019-01-15 19:57 | NUR ---
PATIENT ALERT AND ORIENTED WITH SLEEPINESS DURING THE DAY. PROBLEM WITH AV FISTULA PER DIALYSIS NURSE AND WILL POSSIBLY NEED UNCLOTTED. WILL TRY DIALYSIS AGAIN ON THURSDAY. 2 LOOSE BM'S THIS AFTERNOON. PATIENT AND FAMILY REQUESTING REGULAR DIET BUT STILL ON PUREED PER SPEECH DUE TO INABILITY FOR ALERTNESS, SITTING UP RIGHT, ABILITY TO CHEW FOOD. SISTER AT BS IN AM AT SHIFT CHANGE AND AT END OF SHIFT CHANGE AND ASSIST PATIENT WITH EATING FOOD. FAMILY REQUEST PATIENT NOT GET NARCOTICS AND JUST ACETAMINOPHEN.
--- NOTE | 2019-01-16 04:51 | NUR ---
SLEPT MOST OF SHIFT WITH SISTER AT BEDSIDE. SISTER FED DINNER LATE LAST NOC. PATIENT DID WELL. REMAINS ORIENTED X4 BUT DROWSY. TYLENOL GIVEN X1 WITH NOTED RELIEF. WORKING ON GOALS AND PLAN OF CARE FOR NOC. PROGRESSING SLOWLY TOWARDS DISCHARGE GOALS. NO LOOSE STOOLS TONIGHT. REPOSITIONED PRN FOR COMFORT AND SKIN CARE. CONTINUE TO ASSES.
[2019-01-16 05:20] VITALS: BP 82/45
[2019-01-16 12:03] VITALS: BP 85/35
[2019-01-16 17:14] VITALS: BP 77/25
[2019-01-16 18:18] VITALS: BP 94/51
--- NOTE | 2019-01-16 20:43 | NUR ---
Patient is alert, incontinent of bowel- stool to lab to R/O c diff. Hypotensive this afternoon. Patient is not progressing towards POC.
[2019-01-16 20:45] VITALS: BP 90/53
[2019-01-17] VITALS (8 sets, daily range): BP systolic 78–112; BP diastolic 20–62
[2019-01-17 07:06] LABS: INR 1.2; PROTIME 12.6 Seconds (9.3-11.4)
--- NOTE | 2019-01-17 08:26 | NUR ---
Able to answer most of orientation questions though slow to respond. Sister at bedside. Tolerating room air well with no respiratory distress. Cont.on isolation . Temp 99.5 this am axillary , pt. uncovered. He has been repositioned for comfort. Protective barrier ointment applied to buttocks. Tylenol given for back pain with some relief. Kept NPO for procedure today. Will continue to monitor.
--- NOTE | 2019-01-17 10:24 | NUR ---
roberto carlos sent initial referral to [facility], dishcarging today. Let Leeann at know of referral.
--- NOTE | 2019-01-17 13:27 | NUR ---
Dr. Gonzalez asked this RN to contact case management and let them know that the patient will most likely get discharged tomorrow, and to make sure that the patient's dialysis appoinments are set up post discharge. Esther from notified and said she will soon contact Dr. Gonzalez about the dc plans for the patient.
--- NOTE | 2019-01-17 13:47 | NUR ---
pATIENT LIKELY TO DC TOMORROW. dp SENT UPDATES TO [facility] AND [facility], DP WILL CALL TO MAKE CERTAIN THEY RECEIVED UPDATES.
[2019-01-17 15:33] LABS: HEMOGLOBIN 9.2 gm/dL (14.0-18.0); MCH 25.4 pg (26.0-34.0); MCHC 30.6 g/dL (28.0-37.0); MCV 83.1 fL (80.0-100.0); RBC 3.61 mil/uL (4.50-6.00); RDW 19.8 % (10.5-14.5); WBC 9.8 thou/uL (4.0-11.0)
--- NOTE | 2019-01-17 16:11 | NUR ---
RAPID RESPONSE CALLED. PATIENT WITH INCREASED LETHERGY AND LOW BLOOD PRESSURE. SEE FLOWSHEET FOR DETAILS. PATIENT TRANSFERED TO ICU. FAMILY AT BEDSIDE.
--- NOTE | 2019-01-17 16:46 | NUR ---
SW reviewed chart and spoke with nursing. Discharge back to [facility] was anticipated for tomorrow. train planner faxed updates to [facility] and [facility]. Pt's normal dialysis days are . CLAIRE received call from [facility] with [place] [facility], who states that pt is on service with them, and would like discharge orders faxed to [phone] when available. TAPER AND FLOATER called this afternoon and pt to transfer to ICU. SW/JOZEF following to assist as needed with discharge planning.
--- NOTE | 2019-01-17 16:56 | NUR ---
RECEIVED IN ICU POST TACHYCARDIA, HYPOTENSION AND DECREASED LOC POST SUBCLAVIAN STENT PLACEMENT X 2, THEN DIALYSIS TODAY. SEE ASSESSMENT FOR DETAILS. PICTURES OBTAINED OF MAYA BUTTOCKS WOUNDS. JUAN CARDIOLOGY WELT RANDER PRESENT ASSESSING PT.
--- NOTE | 2019-01-17 18:36 | NUR ---
second blood cx also obtained from right jugular triple lumen cath. pt known difficult stick with limitations of where to obtain blood. Dr. Escalera present to evaluate pt. he is ok with ST-lower 120's. He and Dr. Silva discussed together- since pt runs low bp normally in lower 80's, notify md if sbp in 50-60's.
--- NOTE | 2019-01-17 19:19 | NUR ---
Assumed care approx. 0700 this AM. Patient was taken to IR this AM due to his fistula clotting off previously during dialysis. Patient arrived back from IR with a heart rate in the 130's-140's and more somnolent than usual. Dialysis started, heart rate sustained and pressures became soft in the 80's/40's. Dr. Gonzalez paged about patient's sustaining heart rate. Orders done for STAT CBC/EKG. Cardiology consulted and blood cultures x2 drawn per orders. Results of CBC and EKG reported to Dr. Gonzalez. Patient later became increasingly lethargic, and fistula clotted off again. No bruit auscultated by this RN or the dialysis nurse in the left upper arm fistula. Rapid response team soon called for tachycardia, hypotension, and poor mentation. Dr. Silva and Dr. Gonzalez both notified that the rapid response team was called. One blood pressure was noted to be 60/40. Patient placed in reverse trendelenburg. Blood sugar noted to be 66. 1 amp of D50 given, and sugar came back up to 138. Systolic blood pressure improved but poor diastolic numbers in the 30's-40's caused patient's MAP to decline. Orders given by Dr. Gonzalez to transfer patient to the ICU for AMS, hypotension, and tachycardida. Strict orders from Dr. Silva to not administer any fluids at time of transfer. Report called to ICU nurse. Patient transferred to ICU with the housecalls nurse and FISHER MUSSEL.
--- NOTE | 2019-01-17 19:25 | NUR ---
SEE ADDITIONAL VS ON TABULAR TRENDS VITAL SIGN FLOWSHEET. REPORT GIVEN TO SHERYL METCALF.
[2019-01-18] VITALS (24 sets, daily range): BP systolic 77–137; BP diastolic 30–71
[2019-01-18 03:40] LABS: HEMATOCRIT 28.3 % (42.0-52.0); HEMOGLOBIN 8.4 gm/dL (14.0-18.0); MCH 24.8 pg (26.0-34.0); MCHC 29.8 g/dL (28.0-37.0); MCV 83.2 fL (80.0-100.0); RBC 3.4 mil/uL (4.50-6.00); RDW 19.5 % (10.5-14.5)
[2019-01-18 03:43] LABS: WBC 33.1 thou/uL (4.0-11.0)
[2019-01-18 03:47] LABS: CALCIUM 8.3 mg/dL (8.5-10.1); CREATININE 8.8 mg/dL (0.7-1.3); POTASSIUM 3.8 mmol/L (3.5-5.1)
--- NOTE | 2019-01-18 07:56 | NUR ---
ASSUMED CARE OF PT AT 1900. PT LETHARGIC THROUGH OUT THE NIGHT. ABLE TO FOLLOW COMMANDS, NOD APPROPRIATELY TO QUESTIONS AND GIVE ONE WORD ANSWERS. PT ST ON THE MONITOR. BP SOFT, BUT PARAMETERS MAINTAINED PER RENAL. PT ANURIC. NO BM. PT MAKING NO SIGNIFICANT PROGRESS TOWARDS GOALS.
--- NOTE | 2019-01-18 10:44 | NUR ---
FAXED CLINICAL UPDATE TO [facility] SPOKE WITH CELESTE IN ADM SHE RECEIVED UPDATE AND THAT PT WILL NOT DC BACK TO FACILITY TODAY. DCP TO FOLLOW.
--- NOTE | 2019-01-18 15:56 | 2DMMODE ---
[facility] [place] [address] 2 D/M-MODE ECHOCARDIOGRAM Name: TOAN FISCHER Room #: 237-P [facility] IN ..#: [id number] Admission: 01/03/19 Attend Phys: Jocelyne Gonzalez MD Discharge: Date of : 56 Report #: [id number] THIS REPORT FOR: //name// APPROVED REPORT Study performed: 01/18/2019 09:32:00 EXAM: Comprehensive 2D, Doppler, and color-flow Echocardiogram Patient Location: ICU Room #: [facility] Status: routine BSA: 1.96 HR: 105 bpm BP: 85/49 mmHg Rhythm: Tachycardia Other Information Study Quality: Poor/not all measurement taken Indications Hypotension, ESRD. Hx: Afib, HTN, DM. Echo Enhancing Agent Indication: Endocardial border delineation Agent(s) / Amount(s) Used: Optison 5 cc 2D Dimensions IVSd: 11.70 (7-11mm) LVOT Diam: 20.88 (18-24mm) LVDd: 37.86 mm PWd: 11.38 (7-11mm) LVDs: 25.30 (25-40mm) Aortic Root: 35.52 mm Volumes Left Atrial Volume (Systole) Single Plane 4CH: 44.58 mL Single Plane 2CH: 47.09 mL LA ESV Index: 24.00 mL/m2 Aortic Valve AoV Peak Horacio.: 1.27 m/s AO Peak Gr.: 6.47 mmHg LVOT Max P.50 mmHg LVOT Max V: 1.06 m/s CRISTIANO Vmax: 2.86 cm2 [facility] [address] [place] [address] 2 D/M-MODE ECHOCARDIOGRAM Name: TOAN FISCHER Room #: 237-P [facility] IN [facility]#: [id number] Admission: 01/03/19 Attend Phys: Jocelyne Gonzalez MD Discharge: Date of : 56 Report #: [id number] Mitral Valve E/A Ratio: 0.6 MV Decel. Time: 131.38 ms MV E Max Horacio.: 0.71 m/s MV A Horacio.: 1.11 m/s MV PHT: 38.10 ms IVRT: 73.82 ms Pulmonary Valve PV Peak Horacio.: 1.49 m/s PV Peak Gr.: 8.91 mmHg Left Ventricle The left ventricle is normal size. There is normal LV segmental wall motion. Mild concentric left ventricular hypertrophy. Left ventricular systolic function is hyperdynamic. LVEF is 70%. Mild diastolic dysfunction is present (impaired relaxation pattern). Right Ventricle Right ventricle is not well visualized. Atria The left atrium size is normal. Right atrium is not well visualized but appears normal in size. Aortic Valve Aortic valve is mild to moderately calcified but has adequate excursion. No aortic regurgitation is present. Mitral Valve The mitral valve is normal in structure. Mild mitral annular calcification. There is no mitral valve regurgitation noted. Tricuspid Valve The tricuspid valve is normal in structure. Trace tricuspid regurgitation. Unable to assess PA pressure. Pulmonic Valve Pulmonic valve is not well visualized. Great Vessels The aortic root is normal in size. Ascending aorta is not well visualized. IVC is not well visualized. Pericardium [facility] [address] [place] [address] 2 D/M-MODE ECHOCARDIOGRAM Name: TOAN FISCHER Axel Room #: 237-P [facility] IN ..#: [id number] Admission: 01/03/19 Attend Phys: Jocelyne Gonzalez MD Discharge: Date of : 56 Report #: [id number] There is no pericardial effusion. <Conclusion> The left ventricle is normal size. LVEF is 70%. The left atrium size is normal. Right atrium is not well visualized but appears normal in size. Aortic valve is mild to moderately calcified but has adequate excursion. No aortic regurgitation is present. The mitral valve is normal in structure. Mild mitral annular calcification. The tricuspid valve is normal in structure. Trace tricuspid regurgitation. Unable to assess PA pressure. Pulmonic valve is not well visualized. There is no pericardial effusion. <ELECTRONICALLY SIGNED> By: Paul Elmore MD 01/18/19 1556 1556 1556 Paul Elmore MD /INF
--- NOTE | 2019-01-18 19:15 | NUR ---
PT NPO FOR THIS MOMENT. PT NOT AWAKE ENOUGH TO SWALLOW MEDS AND FOOD. PT NOT PROGRESSING TOWARDS GOAL.
[2019-01-19] VITALS (50 sets, daily range): BP systolic 76–126; BP diastolic 30–83
--- NOTE | 2019-01-19 02:52 | NUR ---
PATIENT YELLING OUT ON AND OFF ASKING FOR PETE (HIS SISTER), AND STATING OVER AND OVER AGAIN "LET ME ". PATIENT IS COMPLAINING OF BEING UNCOMFORTABLE AND IN PAIN. DR. DICKINSON NOTIFIED. 650 MG TYLENOL SUPPOSITORY OBTAINED AND GIVEN. PETE NOTIFIED AND NOW AT BEDSIDE WITH PATIENT. PATIENTS PAIN REASSESSED AND PATIENT RESTING MORE COMFORTABLY. WILL CONTINUE TO MONITOR PATIENT CLOSELY.
[2019-01-19 07:13] LABS: ALBUMIN 1.8 g/dL (3.4-5.0); CREATININE 10.5 mg/dL (0.7-1.3); PHOSPHORUS 5.3 mg/dL (2.5-4.9); POTASSIUM 3.6 mmol/L (3.5-5.1)
--- NOTE | 2019-01-19 07:53 | EKG ---
[address] [address] ELECTROCARDIOGRAM REPORT Name: AALIYAHTOAN Room #: 237-P ADM IN M.R.#: [id number] Admission: 01/03/19 Attend Phys: Jocelyne Gonzalez MD Discharge: Date of : 56 Report #: [id number] THIS REPORT FOR: //name// [facility] Test Date: 2019-01-17 Test Time: 15:05:42 Pat Name: TOAN FISCHER Department: Room: [facility] Gender: M Forge Operator: Jose E GOMES : 1960 Requested By: Jocelyne Gonzalez Order Number: [id number] MD: Mehran Cobb Measurements Intervals [place] Rate: 133 P: 257 MO: 104 QRS: 24 QRSD: 76 T: 50 QT: 359 QTc: 535 Interpretive Statements Sinus or ectopic atrial tachycardia Probable left atrial enlargement Electronically Signed On 01-19-2019 7:53:43 CDT by Mehran Cobb [email or web address] <ELECTRONICALLY SIGNED> By: Mehran Cobb MD 01/19/19 0753 [id number] 1505 MD WISAM Hartley
--- NOTE | 2019-01-19 09:50 | NUR ---
YELLING INTERMITTENTLY, "MY BUTT HURTS". REPOSITIONED FOR COMFORT. DR. JOHN PRESENT. PT STATED, "YES" TO HAVING A TEMPORARY DIALYSIS CATHETER PLACED. CONSENT SIGNED BY PETE, SISTER/DPOA. PT TO IR PER ICU BED WITH SOLAR BUSINESS DEVELOPER AND O2.
--- NOTE | 2019-01-19 11:50 | NUR ---
pt consumed apple juice and glucerna, post accucheck.
--- NOTE | 2019-01-19 19:30 | NUR ---
during dialysis 152cc fluid removed. pt choked on sherbet, unable to administer po medications, drowsy. Dr. Gonzalez present to see pt. dextrose 1 amp given for glucose-60. continued to reposition for pt comfort, side to side except for taking anything po. salima, sister at bedside intermittently providing support.
[2019-01-20] VITALS (41 sets, daily range): BP systolic 70–115; BP diastolic 20–62
[2019-01-20 05:46] LABS: BASOPHILS 0.6 % (0.0-2.0); EOSINOPHILS 1.4 % (0.0-3.0); HEMATOCRIT 25.1 % (42.0-52.0); HEMOGLOBIN 7.6 gm/dL (14.0-18.0); LYMPHOCYTES 14.2 % (24.0-44.0); MCH 25.1 pg (26.0-34.0); MCHC 30.3 g/dL (28.0-37.0); MCV 82.9 fL (80.0-100.0); MONOCYTES 5.6 % (1.0-8.0); PLATELET COUNT 201 thou/uL (150-400); POLYS 78.2 % (36.0-66.0); RBC 3.03 mil/uL (4.50-6.00); RDW 19.7 % (10.5-14.5)
--- NOTE | 2019-01-20 08:59 | NUR ---
Nutrition needs not being met with oral intake, has hypoglycemia, wt loss. Decision on desire to place feeding tube should be readdressed.
--- NOTE | 2019-01-20 10:59 | NUR ---
WOUND CONSULT; BILATERAL BUTTOCKS WOUNDS THAT ARE UNSTAGEABLE AT THIS TIME. THE PATIENTS ALBUMIN IS 1.8 AND HE IS REFUSING TO EAT. THE WOUND ARE COVERED WITH SLOUGHY WOUND DEBRIS AND THE PATIENT IS INCONTINENT OF STOOL THAT IS CONTAMINATING THE WOUNDS. RECOMMENDATION; 1-ZGUARD DAILY/PRN 2-DIETITIAN CONSULT RN PRESENT
--- NOTE | 2019-01-20 13:06 | NUR ---
VASCULAR ACCESS NOTIFIED THAT PT HAS HAD SEVERAL DRG CHG IN LAST 24HOURS DUE TO SC SITE LEAKING. SKIN SURROUNDING INSERTION SITE WET AND MACERATED. MATEUS RN NOTIFIED THAT ORDER NEEDED TO HAVE IR CHANGE CENTRAL LINE. VASCULAR TEAM WAS UNSUCCESSFUL ATTEMPTING PREVIOUS CENTRAL LINE AND CURRENT LINE WAS PLACED BY IR
[2019-01-21] VITALS (44 sets, daily range): BP systolic 62–169; BP diastolic 26–146
--- NOTE | 2019-01-21 06:19 | NUR ---
PT AOX2-3, CONFUSED. CALLED OUT SEVERAL TIMES DURING THE NIGHT TO BE REPOSITIONED, OTHER WANTS. FOLLOW COMMANDS. MEDICATED FOR PAIN RELIEF. VSS. AFEBRILE. BS IN THE 70S, D10 IV FLUID ONGOING. SISTER WADE AT BEDSIDE DURING THE NIGHT, SHE ATTEMPTED TO FEED PT. EDUCATED ABOUT SWALLOW PRECAUTIONS AND POSSIBLE ASPIRATIONS. NO COMPLAINS CURRENTLY. WILL CONTINUE TO MONITOR.
--- NOTE | 2019-01-21 12:29 | NUR ---
FOLLOWING FOR DC PLANNING. CLINCIAL INFO REVIEWED AND DISCUSSED WITH SHAWN JOHN, ALOK AND ZENON THIS AM. SPOKE WITHPT'S DPOA SISTER PETE THURSDAY AND . AND SISTER LUCILLE IS HERE TODAY. BOTH DORA AND ALOK HAVE DISCUSSED PT'S CONDITION AND PROGNOSIS WITH SISTERS. DPOA CONTINUES TO NOT WANT DOBBHOFF FOR NUTRITION, DO NOT WANT LTAC OPTION FOR FURTHER ACUTE CARE, AND WANT TO REMAIN AGGRESSIVE IN PT'S CARE. PLEASE REFER TO PHYSICIAN PROGREESS NOTES TO DETAIL DISCUSSION WITH DPOA. PT WILL NEED TUNNELLED DIALYSIS CATH BUT NOT UNTIL MOST RECENT CULTURES ARE CLEAR. GOING TO IR TODAY FOR CENTRAL LINE CHANGE. PT FROM [facility] WITH HD M-[facility]- AT [facility] AND FACILITY ADMISSIOSN UPDATED TO NO WEEKEND DC.
--- NOTE | 2019-01-21 12:47 | NUR ---
DIALYSIS TODAY, 500 ML REMOVED. HYPOGLYCEMIC AFTER PROCEDURE. BS 50, MILD SYMPTOMS. ONE AMP D50 GIVEN. DOWN TO IR WITH RN TO GET PICC CHANGED OUT. WILL RECHECK BS WHEN BACK TO UNIT
--- NOTE | 2019-01-21 16:48 | NUR ---
FAXED CLINICAL UPDATE TO [facility] RECEIVED CONFIRMATION AND LEFT MSG WITH CELESTE IN ADM THAT PT TO BE HERE ALL WEEKEND.
[2019-01-22] VITALS (40 sets, daily range): BP systolic 76–114; BP diastolic 29–66
[2019-01-22 03:46] LABS: CALCIUM 7.8 mg/dL (8.5-10.1)
[2019-01-22 03:50] LABS: POTASSIUM 2.8 mmol/L (3.5-5.1)
[2019-01-22 03:53] LABS: CREATININE 3.5 mg/dL (0.7-1.3)
[2019-01-22 04:02] LABS: HEMATOCRIT 23.5 % (42.0-52.0); HEMOGLOBIN 7.2 gm/dL (14.0-18.0); MCH 25.9 pg (26.0-34.0); MCHC 30.7 g/dL (28.0-37.0); MCV 84.3 fL (80.0-100.0); RBC 2.79 mil/uL (4.50-6.00); WBC 9.2 thou/uL (4.0-11.0)
--- NOTE | 2019-01-22 08:26 | NUR ---
ASSUMED CARE OF PT AT 1900. PT ORIENTED TO PERSON AND PLACE. PT CONTINUALLY COMPLAINS OF BUTTOCKS PAIN R/T HIS WOUNDS. SR/ST ON THE MONITOR. BP SOFT, BUT WITHIN THE PARAMETERS STATED BY NEPHROLOGY. NG TUBE PLACED AND TUBE FEEDINGS STARTED WITH GOOD TOLERANCE FROM PT. NO SIGNIFICANT CHANGES OVER NIGHT. PT REMAINS STABLE WITHIN THE ESTABLISHED BASELINE FOR HIM.
--- NOTE | 2019-01-22 18:20 | NUR ---
assumed care of p at 0700, pt is A/O times four, c/o pain mostly to buttocks, tylenol administered as ordered. pt has been SR/ST on the monitor. pt with low grade fever at 99.4 this morning but went down as the day progressed. other vss.
--- NOTE | 2019-01-22 22:29 | NUR ---
Care assumed at 1915. Pt calling out less, pain appears better controlled with Tylenol via dobb-dc. Dr. Garces called for Melatonin order as pt has not slept last 2 nights. Tolerating tube feeding well. Z-guard to coccyx wound as ordered. Monitor sinus tach, rates low 100's.
[2019-01-23] VITALS (35 sets, daily range): BP systolic 61–113; BP diastolic 21–55
--- NOTE | 2019-01-23 06:34 | NUR ---
No changes in pt status overnight. Did get a few hours sleep after getting Melatonin at HS. Continues to yell out, does not always have specific need but wants company in room. Small amount greenish brown liquid stool in FMS. Monitor remains sinus rhythm, sinus tachycardia.
[2019-01-24] VITALS (73 sets, daily range): BP systolic 64–182; BP diastolic 22–164
--- NOTE | 2019-01-24 04:15 | NUR ---
NPO AFTER MIDNIGHT MAINTAINED FOR PROCEDURE TODAY. PT. MORE VERBAL THIS SHIFT. CONTINUE TO FOLLOW PLAN OF CARE. WILL CONTINUE TO MONITOR.
[2019-01-24 05:29] LABS: HEMATOCRIT 23.4 % (42.0-52.0); MCH 25.3 pg (26.0-34.0); MCHC 30.1 g/dL (28.0-37.0); RBC 2.78 mil/uL (4.50-6.00); RDW 20.3 % (10.5-14.5); WBC 8.4 thou/uL (4.0-11.0)
[2019-01-24 05:59] LABS: INR 1.3; PROTIME 13.6 Seconds (9.3-11.4)
--- NOTE | 2019-01-24 06:08 | NUR ---
AMIO DRIP ON AND OFF THROUGHOUT THE NIGHT DUE TO PT'S HEART RATE AROUND LOW 50'S AND LOW BP AROUND 70'S. PT'S VITAL SIGNS STABLE THIS AM. PT TOLERATING TUBE FEED. PT POSSIBLY TRANSFERRING BACK TO [facility].
--- NOTE | 2019-01-24 09:44 | NUR ---
Nutrition: Suggested goal rate of Nepro is 50 mL/hr to meet ~100% of needs.
--- NOTE | 2019-01-24 10:54 | NUR ---
LAST BLOOD CULTURES NEGATIVE. TO IR FOR TUNNELLED DIALYSIS CATH PLACEMENT, THEN PLANNED HD TODAY. ALCIDES PLACED 01/21 AND CONTINUES. PT FROM L[facility] WITH HD AT [facility].
--- NOTE | 2019-01-24 11:49 | NUR ---
WOUND CARE; buttocks wound r cheek, some pink granulation tissue present w/ 50% slough, unstageable, no drainage, measures 4cm length x 2.5 cm width, left buttock wound pink granulation tissue 50% w/ small amt slough, treated w/ z guard, open to air, medical staff specialist informed of care recommendations; cont same tx, will cont to follow
--- NOTE | 2019-01-24 15:00 | NUR ---
NURSE TALKED WITH DR. JOHN, WHO EXPRESSED POTASSIUM WOULD BE FIXED WITH THE DAILYSIS 4K BATH. NO NEED FOR FURTHER INTERVENTION AT THIS TIME.
--- NOTE | 2019-01-24 18:30 | NUR ---
ASSESMENTS AND INTERVENTIONS DOCCUMENTED. POTASSIUM LEVELS LOW AND IR CONCEREND BEFORE CATHERTER PLACEMENT. DR JOHN PAGED AND ORDERS RECIEVED. PATIENT WENT TO IR AND CAME BACK WITH NO ISSUES. PATIENT PICC LINE LEAKING. BANDAGE CHANGED. NURSE ASKED DR. ABDUL WHAT TO DO TO PREVENT FURTHER LEAKAGE AND DR. LOTT SAID THERE WAS NOTHING THAT THEY COULD DO. PATIENT RESTARTED TUBE FEEDING AND TOLERATED IT WELL. BLOOD SUGAR CHECKED TO ENSURE AN INCREASE AND BLOOD SUGA WAS WNL. PATIENT RECIEVING DIAYLYSIS AT THIS TIME. IV ABX HELD. PATIENT AND FAMILY AT BED SIDE AND EDUCATED ON PLAN OF CARE.
--- NOTE | 2019-01-24 19:18 | NUR ---
SPOKE WITH DR. NAVA, POTASSIUM 2.6 DURING DAY SHIFT. NO NEW ORDERS TO RECHECK.
[2019-01-25] VITALS (25 sets, daily range): BP systolic 47–119; BP diastolic 24–79
--- NOTE | 2019-01-25 04:48 | NUR ---
PATIENT ALERT AND ORIENTED X4, COMPLAINING OF RIGHT HIP PAIN. PATIENT RESTLESS THROUGHOUT THE NIGHT POST DIALYSIS TREATMENT. ON 2L NASAL CANNULA. TURNED Q2H. PLAN OF CARE DISCUSSED WITH SISTER. TUBE FEEDINGS TOLERATED AT GOAL RATE 40CC/HR. NO COMPLAINTS OF NAUSEA. BLOOD SUGAR MONITORED. NO SIGNS OF ACUTE DISTRESS NOTED AT THIS TIME, WILL CONINUE TO MONITOR.
--- NOTE | 2019-01-25 16:18 | NUR ---
PT IS ALERT AND AWAKE AT TIMES THEN DROWSY AT TIMES. YELLS OUT AT TIMES FOR NURISNG STAFF. LUNGS ARE DIMINIHSED. SINUS TACH ON THE EVALUATION ANALYST. ANURIC WITH FECAL MANAGEMENT SYSTEM IN PLACE. ON 2 LITERS NASAL CANULA. TOLERATING PEG TUBE FEEDING WELL. PAIN AT TIMES NOTED. TYLENOL SUPOSITORY GIVEN FOR DISCOMFORT IN PAIN. SCDS ON BILATERAL. FAMILY AT BEDSIDE FOR SUPPORT.
--- NOTE | 2019-01-25 17:35 | NUR ---
FOLLOWING FOR DC PLANNING. CLINICAL INFO REVIEWED. DOBBHOFF REMAINS AND TOLERATING FEEDINGS. PT SLEEPING AT TIME OF VISIT, MET WITH PT'S DPOA SISTER PETE. PT'S SISTERS PETE AND LUCILLE ARE VERY DEVOTED AND 1 OF THEM ARE IN ROOM WITH PT ALL DAY AND SOMETIMES OVERNIGHT. SUPPORTIVE VISIT WITH PETE TODAY. PETE FEELS PT STILL HAS OPIOIDS IN SYSTEM CAUSING HIM TO NOT SWALLOW EFFECTIVELY AND SUPPPORTS DOBBHOFF TEMPORARY FEEDINGS BUT FEELS PT JUST NEEDS MORE TIME TO "CLEAR" AND COULD THEN EAT AN ORAL DIET SAFELY. I DISCUSSED WITH HER IF PT'S NEW BASELINE WERE THAT HE WAS NOT ABLE TO SWALLOW EFFECTIVELY WITHOUT ASPIRATION AND NEEDED PEG FEEDIGN TUBE, WOULD SHE BE AGREEABLE. PETE INDICATED SHE WOULD HAVE THAT DISCUSSION WHEN/IF THAT TIME CAME BUT FEELS NOT THERE AT PRESENT. DISCUSSED WITH PETE AGAIN THE OPTION OF LTAC A WAY OF GIVING PT MORE TIME IN ACUTE CARE TO WORK ON TUBE FEEDING VS ORAL DIET. LOOSING WINDOW OF OPPORTUNITY WITH LTAC ID NOTE INDICATES WILL SOON DC IV ABX. PETE AGAIN INDICATED SHE DID NOT WANT LTAC TRANSFER. PT IS [facility] WITH DIALYSIS AT [facility] WILL FOLLOW.
--- NOTE | 2019-01-25 17:47 | NUR ---
FAXED CLINICAL UPDATE TO [facility] SPOKE WITH CELESTE IN ADM SHE RECEIVED UPDATE. DP TO FOLLOW.
--- NOTE | 2019-01-25 18:42 | NUR ---
PT IS ALERT AND YELLS OUT FREQUENTLY. LUNGS ARE DIMINISHED. 2/LITERS PER NASAL CANULA. SINUS RYTHM TO SINUS TACH NOTED. ANURIC NO URINE NOTED . FECAL MANAGEMENT SYSTEM NOTED WITH LIQUID STOOLS. LOW GRADE TEMP 99.1. PAIN MEDS TYLNOL SUPPOSITORY GIVEN FOR PAIN. SCDS ON BILATERAL. FAMILY AT BEDSIDE FOR ONGOING SUPPORT FOR PT. NO ISSUES OR CONCERNS NOTED
[2019-01-26] VITALS (7 sets, daily range): BP systolic 79–128; BP diastolic 22–64
[2019-01-26 04:15] LABS: ABSOLUTE NEUTROPHILS 5.6 thou/uL (1.4-8.2); EOSINOPHILS 3.1 % (0.0-3.0); HEMOGLOBIN 7.1 gm/dL (14.0-18.0); LYMPHOCYTES 18.9 % (24.0-44.0); MCHC 30.6 g/dL (28.0-37.0); MONOCYTES 7.4 % (1.0-8.0); PLATELET COUNT 213 thou/uL (150-400); POLYS 69.6 % (36.0-66.0); RBC 2.71 mil/uL (4.50-6.00); RDW 20.2 % (10.5-14.5); WBC 8.1 thou/uL (4.0-11.0)
--- NOTE | 2019-01-26 05:47 | NUR ---
Pt is being transferred to CCU with all his belongings. AM meds were given, including tylenol, see eMAR for that time. Pt's sister will be notified of the transfer, she is in one of the family rooms here at the hospital.
--- NOTE | 2019-01-26 08:41 | NUR ---
ASSUMED CARE OF PT FOR DAY SHIFT, CALLING OUT INCESSANTLY PER PRIOR SHIFT AND WAS DOING SO DURING REPORT. ENCOURAGED HIM TO USE CALL LIGHT OR TAYLOR FOR ANY NEEDS AND WE'D COME IN TO CHECK HOURLY OR MORE [facility]. EDU ON YELLING AND HOW IT'LL DISTURB OTHER PATIENTS NEXT DOOR. HE SAID IF HE WERE THEM IT WOULDN'T BOTHER HIM. ENCOURAGED HIM W/TAKING CARE OF REPOSITIONING/MOUTH SWABS, AND CHANGING CHANNELS, REPOSITIONINED 02 NC IT WAS ON HIS CHEEK NOT NARES. TOOK PHOTO FOR Thu OF WOUNDS AND APPLIED ZGUARD, PT IS ON SIDE OFF OF WOUNDS. A&OX2 YET IN HUMOROUS SPIRITS. WHEN ASKED WHO THE PRESIDENT WAS HE ANSWERED 'ME'. ENCOURAGED HIM TO CALL FOR ANY NEEDS. SEE SEPARATE INTERVENTIONS FOR VARIOUS ASSESSMENTS, CARDIAC MONITORED
--- NOTE | 2019-01-26 11:36 | NUR ---
WOUND CARE NOTE; WOUND CARE DONE PRIOR TO THIS WOCN NURSE SEEING PT THIS, GREASE WORKER STATES WOUND HEALING, WILL CONT TO FOLLOW PRN RECOMMENDATIONS: CONT SAME WOUND CARE
--- NOTE | 2019-01-26 15:44 | NUR ---
PT'S DIALYSIS NURSE CALLED ME IN TO THE ROOM, STATED PT BECAME UPSET 3/4 [address] THROUGH HIS DIALYSIS AND WANTED OFF. WHILE SPEAKING W/PT ASKED IF HE UNDERSTOOD THE REPERCUSSIONS OF STOPPING TREATMENT EARLIER, HE SAID YES. DEMANDING FOOD. THERE'S A FOOD RESTRICTION NOTE ABOVE BED YET DIET ORDERS SHOW NPO. WILL COMMUNICATE W/PHYSICIAN TO SEE IF WE TRULY ARE NPO, ORDERED.
[2019-01-27 04:34] VITALS: BP 125/58
--- NOTE | 2019-01-27 04:51 | NUR ---
RECEIVED PT'S CARE AT 1926; PT. ON BED; SLEEPING; ANSWER BACK TO NAME; DURING ASSESSMENT C/O LEG PAIN; RE-POSITIONED; HS MEDICATION GIVEN; FECAL MANAGEMENT BAG CHANGED; SLEEPING AFTER BEING REPOSITIONED; AROUND 2300 PT. C/O PAIN; PRN PAIN MEDICATION GIVEN; RE-ASSESSMENT PT. SLEEPING; AFTER MIDNIGHT PT. NOT ABLE TO REST PRN SLEEP MEDICATION GIVEN; DRAINAGE NOTICED FROM CENTRAL LINE; DRESSING CHANGED; THROUGH THE NIGHT PT. C/O PAIN OVER LEGS; NO GABAPENTIN ON EMAR; WILL PASS ON REPORT; NO EYE DROPS MEDICATION ON EMAR; WILL PASS ON REPORT; THROUGH THE NIGHT REQUESTED TO BE RE-POSITIONED; NO ABLE TO REST AFTER 0300; SINUS TACH; MONITORING; ASSESSMENT CHARGED; FOLLOWING POC; WILL PASS ON REPORT.
[2019-01-27 12:34] VITALS: BP 66/39
--- NOTE | 2019-01-27 16:18 | NUR ---
SISTER PETE DOES NOT WANT PT ON ALTEREED CONSISTENCY DIET AND NOTES INDICATE SHE TOLD ST SHE GAVE PT WATER AND PUDDING AND HE "DID FINE". DOBBHOFF WITH TF CONTINUES. ST TO EVAL AND DO VIDEO SWALLOW TODAY BUT DEFERRED AT RN REQUEST R/T LOW BP. DR. JOHN ROUNDED AND LOW BP IS CHRONIC AND PT ON MIDODRINE. NEED TO ASSESS FOR DYSPHAGIA AND IF ABLE GIVE REGULARE CONSISTENCY FOOD AND THIN LIQUIDS, THEN CAN DC TF IF TOLERATES. PLEASE SEE ST AND RENAL PROGRESS NOTES.
--- NOTE | 2019-01-27 16:50 | NUR ---
ASSUMED CARE OF PT AT SHIFT CHANGE. ASSESSMENTS CHARTED. MEDS GIVEN PER JUN. BP TRENDING DOWN, PHYSICIAN NOTIFIED. DR. JOHN SAID NOT TO MOVE TO ICU FOR DOPAMINE DRIP OR TO CONSULT DR. CARTER. FAMILY IS NOT OPEN TO THAT DISCUSSION. PT CALLED OUT FREQUENTLY AFTER SISTER LEFT, WANTING LEGS FIXED OR TO BE REPOSITIONED. ADMINISTERED TYLENOL FOR PAIN, WITH PARTIAL RELIEF. Q2 TURNS. WILL CONTINUE TO MONITOR AND FOLLOW POC.
[2019-01-27 16:59] VITALS: BP 83/47
[2019-01-27 19:31] VITALS: BP 81/47
--- NOTE | 2019-01-28 04:07 | NUR ---
1900, PT ALERT ORIENTED TO SELF AND SITUATION. REPORTS PAIN IN THE RIGHT HIP. LIDOCAINE AND TYLANOL PRN GIVEN DOCUMENTED. WILBUR FEEDING INTACT. RECTAL TUBE INTACT. FREQUENT REPOSITIONING DONE TOLERATED. PT CURRENTLY APPEAR STABLE. STILL HYPOTENSIVE. WILL CONTUNUE TO FOLLOW PLAN OF CARE.
[2019-01-28 06:10] VITALS: BP 95/27
[2019-01-28 08:26] VITALS: BP 115/43
--- NOTE | 2019-01-28 11:59 | NUR ---
FAXED CLINICAL UPDATE TO [facility] RECEIVED CONFIRMATION ADN NOTIFIED CELESTE IN ADM OF POSS DC OVER WEEKEND. IF PT DISCHARGES OVER WEEKEND PLEASE FAX DC ORDERS TO [phone] AND CALL FOR REPORT AND TO SET UP TRANSPORT [phone].
[2019-01-28 12:00] VITALS: BP 103/64
--- NOTE | 2019-01-28 16:02 | NUR ---
FAXED DIALYSIS FLOW SHEETS TO [facility] RECEIVED CONFIRMATION. PT POSS DC OVER WEEKEND.
[2019-01-28 17:06] VITALS: BP 125/42
--- NOTE | 2019-01-28 18:26 | NUR ---
ASSUMED CARE OF PT AT SHIFT CHANGE. ASSESSMENT CHARTED.MEDS GIVEN PER JUN. PT ALERT, ORIENTED TO PERSON AND PLACE. REORIENTED NEEDED. SIBLING AT BEDSIDE THROUGHOUT SHIFT. PT BEDBOUND, TURNED ALLOWED. DIALYSIS PERFORMED THIS SHIFT, PRESSURES DROPPED SIGNIFICANTLY, DR JOHN NOTIFIED BY DIALYSIS NURSE, ORDERS RECEIVED FOR ALBUMIN. 1100 FLUIDS GIVEN, NONE TAKEN OFF. DIALYSIS LASTED APPROX 3 HOURS PER DIALYSIS NURSE. PT BP RUNS LOW ACCORDING TO PCP. FECAL TUBE INTACT, DRAINING APPROPRIATELY. APPETITE INADEQUATE, DID NOT CONSUME VERY MUCH OF MEALS. WILBUR CONTINUES TO BE IN PLACE WITH NEPRO RUNNING AT 50. O2 SATS WNL ON 2L. DENIES CP, SOB. PT WILL BE MOVED TO 446. ATTEMPTED REPORT AT 1821. WAS TOLD WILL CALL BACK. PT DENIES NEEDS AT THIS TIME. WILL CONT TO MONITOR.
[2019-01-28 20:11] VITALS: BP 85/53
--- NOTE | 2019-01-29 03:43 | NUR ---
ASSUMED PT CARE AT 1999 ON . TX FROM CCU. PT SIBLING IN ROOM AT BEDSIDE. PT REPOSITIONED Q2. PERICARE COMPLETED, Z BRIAN APPLIED, THREE SMALL OPEN SPOTS ON BOTTOM. LIDOCAINE APPLIED TO PT RIGHT HIP. PT IS ALERT TO SELF AND LOCATION. PT IS AROUSABLE BUT SOMETIMES UNRESPONSIVE. PT FAVORS THE RIGHT SIDE. PT YELLS OUT DURING THE NIGHT. STILL MONITORING.
[2019-01-29 05:09] VITALS: BP 129/90
[2019-01-29 07:53] VITALS: BP 124/43
[2019-01-29 16:04] VITALS: BP 105/59
--- NOTE | 2019-01-29 18:42 | NUR ---
PT A&OX2. IV INTACT IN R UA. DIALYSIS FISTULA IN L CHEST. O2@2LPER NC. DOBHOFF IN L NARE INFUSING NEPRO @ 50/HR. ANURIC. PT'S BP DROPS IF ON L SIDE. FECAL TUBE IN PLACE. SISTER AT BEDSIDE. PT ATE 25% BREAKFAST, 30% LUNCH, 10% DINNER. WILL CONT POC.
[2019-01-29 19:38] VITALS: BP 103/61
--- NOTE | 2019-01-30 03:44 | NUR ---
PATIENT ALERT AND ORIENTED XSELF. CALLS OUT FREQUENTLY FOR DRINKS AND OTHER THINGS. C/O PAIN, MED GIVEN WITH NO RELIEF. PAIN MED IS TYLENOL AND FAMILY DOES NOT WANT HIM TO HAVE ANY NARCOTICS BECAUSE OF HISTORY WITH THEM IN THE ICU. HAS DOBBHOFF DOWN THE L NARE WITH NEPRO RUNNING AT 50ML/HR. ACCUCHECK AT NH WAS ONLY 137. SISTER AT BEDSIDE. REMAINS IN ISOLATION FOR VRE IN HIS URINE. DOES NOT VOID NUCH. HAS FECAL TUBE IN PLACE. SLEPT VERY LITTLE THIS SHIFT.
[2019-01-30 08:16] VITALS: BP 108/64
[2019-01-30 12:54] VITALS: BP 101/56
[2019-01-30 17:28] VITALS: BP 133/77
--- NOTE | 2019-01-30 17:49 | NUR ---
PT ASSESSED AT START OF SHIFT. NOTED SISTER FEEDING LIQUIDS TO PT USING STRAW. EDUCATION GIVEN RE ASP RISK W/ STRAWS. PT VERY CONFUSED. C/O ABD CRAMPING. TYLENOL GIVEN WHICH HELPED. DR. PANIAGUA IN AND DC'D REGLAN PT WAS ON LOMOTIL FOR DIARRHEA. RECTAL TUBE IN PLACE W/ LARGE AMT THICK LIQUID STOOL. SISTER STATES BM WORSE SINCE TUBE FEEDS. PT EATING WELL AND IS FED PER SISTER. SWALLOWS PILLS WHOLE W/ SIPS THICKENED WATER. TUBE FEEDS DECREASED PER DR. PANIAGUA.
[2019-01-30 20:05] VITALS: BP 124/73
--- NOTE | 2019-01-31 04:37 | NUR ---
PATIENT ALERT AND ORIENTED XSELF. KNOWS SISTER IN ROOM WITH HIM BUT NOT WHERE OR WHEN HE IS. RECTAL TUBE LEAKING X2, FLUSHED. ON BEDREST. DIALYSIS TODAY. IS MOSTLY ANURIC. BOTTOM HAS THREE SHEAR SPOTS. ORDER FOR SCHEDULED TYLANOL AND GABEPENTIN, GIVEN. PATIENT SLEPT MOST OF NIGHT. ORDER WAS OBTAINED TO GIVE AMBIEN 2.5MG IF TYLENOL AND GABEPENTIN GIVE AMBIEN. AMBIEN GIVEN WHEN PATIENT WOKE. TUBE FEEDING TO BE DC'D. SLEPT MOST OF NIGHT,
[2019-01-31 05:52] VITALS: BP 96/48
--- NOTE | 2019-01-31 05:58 | NUR ---
PATIENT HAD TEMP OF 101 AT 2001, TYLENOL WAS GIVEN. AT 2204 TEMP WAS 100.2. THIS AM TEMP WAS 100.8, TYLENOL WAS GIVEN.
[2019-01-31 08:37] VITALS: BP 89/51
[2019-01-31 11:59] VITALS: BP 103/54
[2019-01-31 17:54] VITALS: BP 152/76
--- NOTE | 2019-01-31 20:33 | NUR ---
ASSUMED CARE AT 0700, SHIFT ASSESSMENT DONE, MEDS GIVEN, VSS. REPORTED PAIN, PRN PAIN MEDS GIVEN. HAD DIALYSIS THIS AFTERNOON, TOOK 1L. BLOOD PRESURE WAS NORMAL AFTER DIALYSIS. FECAL MANAGEMENT BAG WAS CHNAGED. WILL CONTINUE TO ASSESS AND ASSIST WITH ADLs NEEDED.
[2019-01-31 22:55] VITALS: BP 136/73
[2019-02-01 03:50] VITALS: BP 157/70
--- NOTE | 2019-02-01 04:13 | NUR ---
PT AWAKE,WITH FLAT AFFECT. GRIEMACES IN PAIN WHEN REPOSITIONING. TYLANOL GIVEN NEEDED. FAMIL(SISTER) AT BEDSIDE. DIFFICULTIES DRAWING BLOOD. HOUSE SUP NOTIFIED. ORDERS FOR BLOOD CULTURES LATER DRAWN. PT STARTED ON ON ABX. NO FEVER OVER NIGHT. BED BATH GIVEN. ASSESSMENTS DOCUMENTED. ALL LINENS CHNAGED. WILL CONTINUE WITH CURRENT PLAN OF CARE. PT APPEAR TO BE STABLE.
[2019-02-01 05:40] LABS: HEMATOCRIT 22.9 % (42.0-52.0); HEMOGLOBIN 7.2 gm/dL (14.0-18.0); MCH 27.6 pg (26.0-34.0); MCHC 31.6 g/dL (28.0-37.0); MCV 87.3 fL (80.0-100.0); RBC 2.62 mil/uL (4.50-6.00); WBC 9.6 thou/uL (4.0-11.0)
[2019-02-01 08:10] VITALS: BP 118/56
--- NOTE | 2019-02-01 16:08 | NUR ---
ASSUMED CARE OF PT AT 0700. PT ON CONTACT PRECAUTIONS FOR VRE IN URINE. LIDOCAINE APPLIED TO R HIP AND Z GUARD APPLED TO BOTTOM/COCCYX. PT IS ON MECHANICAL SOFT DIET WITH NECTAR LIQUIDS. PT ALSO HAS SUPPLEMENTS WITH ENSURE PUDDING AND MAGIC CUPS WITH ALL MEALS. DC ROJAS TUBE. Q2 REPOSITIONING. FALL PRECAUTIONS IN PLACE. BED ALARM ON AND BED IN THE LOWEST POSITION. CALL LIGHT WITHIN REACH. WILL CONTINUE TO MONITOR PT.
--- NOTE | 2019-02-01 17:01 | NUR ---
DOBBHOFF TUBE DISCONTINUED THIS AFTERNOON PER ORDER FROM GI BY NURSING.
[2019-02-01 17:21] VITALS: BP 123/50
[2019-02-01 19:46] VITALS: BP 141/97
--- NOTE | 2019-02-02 05:31 | NUR ---
PT AOX3, FOLLOW COMMANDS. MEDICATED FOR PAIN RELIEF. VSS. FREQUENT TURNS DURING THE NIGHT. TOLERATING PO INTAKE AND MEDS. NO COMPLAINS PRESENTLY. WILL CONTINUE TO MONITOR.
[2019-02-02] MEDS ORDERED: PIPERACIL-TA3.375 G1 IV (13:32)
[2019-02-02] MEDS ORDERED: MIDODRINE HCL 55 M1 PO (13:33)
[2019-02-02] MEDS ORDERED: IPRAT-ALBUT 0.5-3 ML INH (13:33)
[2019-02-02] MEDS ORDERED: GABAPENTIN 100100 MG PO (13:36)
[2019-02-02] MEDS ORDERED: AMBIEN 5 MG TABL5 M1 PO (13:37)
[2019-02-02] MEDS ORDERED: LOMOTIL TABLET1 EACH PO (13:39)
--- NOTE | 2019-02-02 14:04 | NUR ---
Pt dcing back to [facility] today under his skilled medicare benefit. He will need another week of iv zosyn and therapies. The attending has rounded and dc orders noted. His sister is at bedside and is aware of the dc plan for this afternoon. Pt had dialysis this am. Chart copy in progess. Dc operations planner to fax orders and arrange for [facility] non emergent transport per [facility] for this afternoon. Dc operations planner to fax [facility] as well for resumption of his onsite dialysis at [facility]. [facility] BENCH PRECISION ASSEMBLER Pilar was alerted of dc as well as she had been seeing the pt at [facility]. All parties updated.
--- NOTE | 2019-02-02 14:52 | NUR ---
PT DISCHARGING TODAY TO [facility] FAXED DC ORDERS/SUMMARY TO FACILITY SPOKE WITH CELESTE SHE RECEIVED DC ORDERS AND TRANSPORT ARRANGED THROUGH [facility] TRIP #[id number] FOR AMBULANCE TRANSPORT FOR 1644. NOTIFIED PT'S SISTER PETE OF DC AND TIME OF TRANSPORT. UNIT NOTIFIED AND CHART COPY PER US. RN TO CALL REPORT TO [phone].
--- NOTE | 2019-02-02 17:15 | NUR ---
DISCHARGE TO [facility] REPORT CALLED TO STAFF. DC WITH PARAMEDICS. FAMILY AT BEDSIDE WITH PT PRIOR TO DISHCARGE. DISCHARGE PAPER WORK WITH PT PRIOR TO LEAVING. REMOVED FECAL SYSTEM PRIOR TO DISHCARGE.
== END 2019-02-02 17:43 | DRG 853 ==
LOC: ER 16:36 → EROBS 17:45 → ICU 17:45 → 3W 01-13 19:18 → ICU 01-17 16:18 → 2N 01-26 05:45 → 4S 01-28 19:56
PROVIDERS: Emergency Medicine; Hospitalist; Internal Medicine Nephrology; Internal Medicine Pulmonary Disease; Pediatrics; Specialist; ADMIT Internal Medicine
PROC: 5A1955Z Respiratory Ventilation, Greater than 96 Consecutive Hours (ICD-10-PCS; principal; 2019-01-03)
PROC: B548ZZA Ultrasonography of Superior Vena Cava, Guidance (ICD-10-PCS; principal; 2019-01-03)
PROC: 02HV33Z Insertion of Infusion Device into Superior Vena Cava, Percutaneous Approach (ICD-10-PCS; principal; 2019-01-03)
PROC: 0BH17EZ Insertion of Endotracheal Airway into Trachea, Via Natural or Artificial Opening (ICD-10-PCS; principal; 2019-01-03)
PROC: 04HY32Z Insertion of Monitoring Device into Lower Artery, Percutaneous Approach (ICD-10-PCS; 2019-01-04)
PROC: 4A133J1 Monitoring of Arterial Pulse, Peripheral, Percutaneous Approach (ICD-10-PCS; 2019-01-04)
PROC: 4A133B1 Monitoring of Arterial Pressure, Peripheral, Percutaneous Approach (ICD-10-PCS; 2019-01-04)
PROC: 5A1D70Z Performance of Urinary Filtration, Intermittent, Less than 6 Hours Per Day (ICD-10-PCS; 2019-01-05)
PROC: 5A1D70Z Performance of Urinary Filtration, Intermittent, Less than 6 Hours Per Day (ICD-10-PCS; 2019-01-07)
PROC: 5A09357 Assistance with Respiratory Ventilation, Less than 24 Consecutive Hours, Continuous Positive Airway Pressure (ICD-10-PCS; 2019-01-08)
PROC: 5A09357 Assistance with Respiratory Ventilation, Less than 24 Consecutive Hours, Continuous Positive Airway Pressure (ICD-10-PCS; 2019-01-09)
PROC: 5A09357 Assistance with Respiratory Ventilation, Less than 24 Consecutive Hours, Continuous Positive Airway Pressure (ICD-10-PCS; 2019-01-10)
PROC: 5A1D70Z Performance of Urinary Filtration, Intermittent, Less than 6 Hours Per Day (ICD-10-PCS; 2019-01-15)
PROC: 05783DZ Dilation of Left Axillary Vein with Intraluminal Device, Percutaneous Approach (ICD-10-PCS; 2019-01-17)
PROC: 5A1D70Z Performance of Urinary Filtration, Intermittent, Less than 6 Hours Per Day (ICD-10-PCS; 2019-01-17)
PROC: 05CY3ZZ Extirpation of Matter from Upper Vein, Percutaneous Approach (ICD-10-PCS; 2019-01-17)
PROC: B51W1ZZ Fluoroscopy of Dialysis Shunt/Fistula using Low Osmolar Contrast (ICD-10-PCS; 2019-01-17)
PROC: 05763DZ Dilation of Left Subclavian Vein with Intraluminal Device, Percutaneous Approach (ICD-10-PCS; 2019-01-17)
PROC: 03CY3ZZ Extirpation of Matter from Upper Artery, Percutaneous Approach (ICD-10-PCS; 2019-01-17)
PROC: B5181ZA Fluoroscopy of Superior Vena Cava using Low Osmolar Contrast, Guidance (ICD-10-PCS; 2019-01-19)
PROC: 02HV33Z Insertion of Infusion Device into Superior Vena Cava, Percutaneous Approach (ICD-10-PCS; 2019-01-19)
PROC: B548ZZA Ultrasonography of Superior Vena Cava, Guidance (ICD-10-PCS; 2019-01-19)
PROC: 02HV33Z Insertion of Infusion Device into Superior Vena Cava, Percutaneous Approach (ICD-10-PCS; 2019-01-21)
PROC: 5A1D70Z Performance of Urinary Filtration, Intermittent, Less than 6 Hours Per Day (ICD-10-PCS; 2019-01-21)
PROC: 05PYX3Z Removal of Infusion Device from Upper Vein, External Approach (ICD-10-PCS; 2019-01-21)
PROC: B5181ZA Fluoroscopy of Superior Vena Cava using Low Osmolar Contrast, Guidance (ICD-10-PCS; 2019-01-21)
PROC: B5181ZA Fluoroscopy of Superior Vena Cava using Low Osmolar Contrast, Guidance (ICD-10-PCS; 2019-01-24)
PROC: 02H633Z Insertion of Infusion Device into Right Atrium, Percutaneous Approach (ICD-10-PCS; 2019-01-24)
PROC: 0JH63XZ Insertion of Tunneled Vascular Access Device into Chest Subcutaneous Tissue and Fascia, Percutaneous Approach (ICD-10-PCS; 2019-01-24)
PROC: 5A1D70Z Performance of Urinary Filtration, Intermittent, Less than 6 Hours Per Day (ICD-10-PCS; 2019-01-28)
PROC: 5A1D70Z Performance of Urinary Filtration, Intermittent, Less than 6 Hours Per Day (ICD-10-PCS; 2019-02-02)
DX: A41.51 Sepsis due to Escherichia coli [E. coli] (principal); J96.01 Acute respiratory failure with hypoxia; J18.9 Pneumonia, unspecified organism; N18.6 End stage renal disease; G92 Toxic encephalopathy; E43 Unspecified severe protein-calorie malnutrition; R65.21 Severe sepsis with septic shock; I12.0 Hypertensive chronic kidney disease with stage 5 chronic kidney disease or end stage renal disease; E87.2 Acidosis; N39.0 Urinary tract infection, site not specified; Z16.12 Extended spectrum beta lactamase (ESBL) resistance; J98.11 Atelectasis; T82.868A Thrombosis due to vascular prosthetic devices, implants and grafts, initial encounter; I82.B12 Acute embolism and thrombosis of left subclavian vein; I82.A12 Acute embolism and thrombosis of left axillary vein; E11.22 Type 2 diabetes mellitus with diabetic chronic kidney disease; K21.9 Gastro-esophageal reflux disease without esophagitis; E11.42 Type 2 diabetes mellitus with diabetic polyneuropathy; E11.51 Type 2 diabetes mellitus with diabetic peripheral angiopathy without gangrene; L89.322 Pressure ulcer of left buttock, stage 2; L89.312 Pressure ulcer of right buttock, stage 2; J32.0 Chronic maxillary sinusitis; G40.909 Epilepsy, unspecified, not intractable, without status epilepticus; B96.4 Proteus (mirabilis) (morganii) as the cause of diseases classified elsewhere; R50.82 Postprocedural fever; D64.9 Anemia, unspecified; Y95 Nosocomial condition; E87.6 Hypokalemia; E11.43 Type 2 diabetes mellitus with diabetic autonomic (poly)neuropathy; I48.0 Paroxysmal atrial fibrillation; D72.823 Leukemoid reaction; K31.84 Gastroparesis; K59.01 Slow transit constipation; R13.12 Dysphagia, oropharyngeal phase; E11.649 Type 2 diabetes mellitus with hypoglycemia without coma; Z74.01 Bed confinement status; Z68.23 Body mass index [BMI] 23.0-23.9, adult; Z99.2 Dependence on renal dialysis; Z79.899 Other long term (current) drug therapy; Z88.5 Allergy status to narcotic agent; Z88.8 Allergy status to other drugs, medicaments and biological substances; Z83.3 Family history of diabetes mellitus; Z82.49 Family history of ischemic heart disease and other diseases of the circulatory system
CPT/HCPCS: 10078; 10081; 10102; 10194; 10204; 10779; 32100; 85014

== ENCOUNTER 2019-02-05 17:27 | Emergency (ER) | payer OTHER ==
[~2019-02-05] VITALS: Ht 180.3 cm; Wt 80.3 kg
[~2019-02-05 17:27] MED LIST changes: +AMBIEN 5 MG TABL5 M1 PO; +GABAPENTIN 100100 MG PO; +IPRAT-ALBUT 0.5-3 ML INH; +LOMOTIL TABLET1 EACH PO; +PIPERACIL-TA3.375 G1 IV
[2019-02-05 20:00] LABS: ABSOLUTE NEUTROPHILS 5.7 thou/uL (1.4-8.2); BASOPHILS 0.5 % (0.0-2.0); HEMATOCRIT 25.5 % (42.0-52.0); HEMOGLOBIN 7.9 gm/dL (14.0-18.0); LYMPHOCYTES 13.4 % (24.0-44.0); MCH 27.4 pg (26.0-34.0); MCV 88.5 fL (80.0-100.0); MONOCYTES 6.9 % (1.0-8.0); PLATELET COUNT 304 thou/uL (150-400); POLYS 76.2 % (36.0-66.0); RBC 2.88 mil/uL (4.50-6.00); RDW 26.5 % (10.5-14.5); WBC 7.5 thou/uL (4.0-11.0)
[2019-02-05 20:04] LABS: CALCIUM 8.7 mg/dL (8.5-10.1); CREATININE 4.5 mg/dL (0.7-1.3); POTASSIUM 3.5 mmol/L (3.5-5.1)
[2019-02-05 20:07] LABS: ALBUMIN 2.5 g/dL (3.4-5.0); TOTAL BILIRUBIN 0.3 mg/dL (<0.1-1.0); TOTAL PROTEIN 7.2 g/dL (6.4-8.2)
[2019-02-05 20:32] LABS: MACROCYTES 2+; MICROCYTES 2+; TARGET CELLS 2+
[2019-02-05 23:12] VITALS: BP 126/70
== END 2019-02-05 23:12 ==
LOC: ER 17:27
PROVIDERS: Emergency Medicine
DX: T80.89XA Other complications following infusion, transfusion and therapeutic injection, initial encounter (principal); I10 Essential (primary) hypertension; E11.9 Type 2 diabetes mellitus without complications; I48.91 Unspecified atrial fibrillation; K21.9 Gastro-esophageal reflux disease without esophagitis; Z88.6 Allergy status to analgesic agent; Z88.8 Allergy status to other drugs, medicaments and biological substances

== ENCOUNTER 2019-03-18 01:07 | Inpatient (IN) | payer OTHER ==
[~2019-03-18] VITALS: Ht 172.7 cm; Wt 73.7 kg
[2019-03-18] VITALS (94 sets, daily range): BP systolic 42–215; BP diastolic 18–559
[2019-03-18] MEDS ORDERED: LOMOTIL TABLET1 EACH PO (01:20)
[2019-03-18] MEDS ORDERED: AZOPT OPHTH1 %/10 M1 OPHTHALMIC (01:21)
[2019-03-18] MEDS ORDERED: NEPHRO-VITE RX1 TA1 PO (01:22)
[2019-03-18] MEDS ORDERED: LIQUITEARS15 ML OPHTHALMIC (01:23)
[2019-03-18] MEDS ORDERED: FLORASTOR250 MG PO (01:25)
[2019-03-18] MEDS ORDERED: ATIVAN1 M1 PO (01:27)
[2019-03-18] MEDS ORDERED: CYMBALTA30 MG PO (01:27)
[2019-03-18 01:28] LABS: WBC 4.4 thou/uL (4.0-11.0)
[2019-03-18 01:30] LABS: HEMATOCRIT 41.4 % (42.0-52.0); HEMOGLOBIN 12.5 gm/dL (14.0-18.0); MCHC 30.1 g/dL (28.0-37.0); MCV 86.3 fL (80.0-100.0); PLATELET COUNT 278 thou/uL (150-400); RBC 4.79 mil/uL (4.50-6.00); RDW 20.1 % (10.5-14.5)
[2019-03-18 01:40] LABS: ANION GAP 13 mmol/L (7-16); BUN 23 mg/dL (7-18); CALCIUM 8.3 mg/dL (8.5-10.1); CHLORIDE 97 mmol/L (98-107); CO2 23 mmol/L (21-32); CREATININE 6.7 mg/dL (0.7-1.3); GLUCOSE 132 mg/dL (74-106); SODIUM 133 mmol/L (136-145)
[2019-03-18 01:44] LABS: APTT 25.4 Seconds (24.5-32.8); INR 1.2; PROTIME 12.1 Seconds (9.3-11.4)
[2019-03-18 01:50] LABS: ALBUMIN 1.7 g/dL (3.4-5.0); MAGNESIUM 1.6 mg/dL (1.8-2.4); SGOT 14 U/L (15-37); SGPT < 6 U/L (30-65); TOTAL BILIRUBIN 0.5 mg/dL (<0.1-1.0); TOTAL PROTEIN 7.3 g/dL (6.4-8.2); TROPONIN-I <0.06 ng/mL (<0.06)
[2019-03-18 01:51] LABS: URINE BILIRUBIN NEGATIVE (Negative); URINE BLOOD 3+ (Negative); URINE CLARITY CLEAR; URINE COLOR YELLOW; URINE GLUCOSE-RANDOM* NEGATIVE (Negative); URINE KETONES NEGATIVE (Negative); URINE NITRITE-REFLEX NEGATIVE (Negative); URINE PROTEIN (DIPSTICK) 3+ (Negative); URINE SPECIFIC GRAVITY 1.015 (1.005-1.035); URINE UROBILINOGEN 0.2 E.U./dl (0.2-1.0)
[2019-03-18 01:56] LABS: URINE LEUKOCYTES-REFLEX 1+ (Negative)
[2019-03-18 02:03] LABS: AMP/METHAMP Negative (Negative); BARBITURATES Negative (Negative); BENZODIAZEPINES Negative (Negative); COCAINE Negative (Negative); METHADONE Negative (Negative); OPIATES Negative (Negative); PCP Negative (Negative)
[2019-03-18 02:06] LABS: HYALINE CASTS 0-3 Few /LPF (None Seen); MUCUS 0-3 Light strn/LPF (None Seen); SQUAMOUS >10 Many /LPF (0-3)
[2019-03-18 02:07] LABS: BACTERIA-REFLEX 1-9 Few /HPF (None Seen); CRYSTALS None Seen /LPF (None Seen); URINE RBC 0-2 Rare /HPF (0-2); URINE WBC-REFLEX 6-15 Few /HPF (0-5); YEAST-REFLEX Present (None Seen)
[2019-03-18 02:41] LABS: HCO3 23.2 mmol/L (22.0-26.0); PCO2 40.9 mmHg (35.0-45.0); pH 7.371 (7.360-7.450); sO2 85.3 % (92.0-98.0)
[2019-03-18 02:42] LABS: PO2 51.1 mmHg (80.0-100.0)
[2019-03-18 02:45] LABS: ABSOLUTE NEUTROPHILS 3.7 thou/uL (1.4-8.2); ATYPICAL LYMPHS 1 %
[2019-03-18 02:46] LABS: ANISOCYTOSIS 2+; POLYCHROMASIA 1+
--- NOTE | 2019-03-18 04:36 | NUR ---
GLOST TILE SHADER, DAMIEN, CALLED DR. CHO TO UPDATE ON PT STATUS. SHE STATES DR. CHO WOULD LIKE THE PT INTUBATED.
--- NOTE | 2019-03-18 06:05 | NUR ---
58 [address] PT OF DR HARDY ADMITTED TO ICU VIA CART FROM ER WITH RESP FAILURE AND SEPSIS. PROTOCAL. FOLLOWS NO COMMANDES CONTRACTURED. LEVOPHED GTT AT 5 MCG. MONITOR SHOWS SINUS TACH RATE 140 LUNGS COARSE RHONCHI BILAT. ORALLY INTUBATED. WILL CONT TO MONITOR CLOSELY.
--- NOTE | 2019-03-18 06:50 | NUR ---
ATTEMPTING TO START PERIP IV WITH NO SUCCESS. ER ENGINEERING CLERK HERE INSERTED A RIGHT IO. REMAINS HYPOTENSIVE LEVOPHED GTT NOW AT 30 MCG. REMAINS NONRESPONSIVE. FOLLOWS NO COMMANDS. WILL CONT T O MONITOR.
--- NOTE | 2019-03-18 09:23 | EKG ---
[address] [place] [address] ELECTROCARDIOGRAM REPORT Name: GURJIT FISCHERY Axel Room #: 244-P ADM IN M.R.#: [id number] Admission: 03/18/19 Attend Phys: Srikanth Nava MD Discharge: Date of : 56 Report #: [id number] THIS REPORT FOR: //name// [facility] ED Test Date: 2019-03-18 Test Time: 01:13:25 Pat Name: TOAN FISCHER Department: Room: [facility] Gender: M Customer Experience Retail Clerk: ESTER : 1960 Requested By: José Miguel Hawthorne Order Number: [id number] MD: Fan Cody Measurements Intervals [place] Rate: 146 P: 0 OR: 139 QRS: 34 QRSD: 67 T: 161 QT: 291 QTc: 454 Interpretive Statements Sinus tachycardia Nonspecific ST and T wave abnormality Compared to ECG 01/17/2019 15:05:42 no significant change was found Electronically Signed On 03-18-2019 9:23:06 UMBRELLA SUPERVISOR by Fan Cody [email or web address] <ELECTRONICALLY SIGNED> By: Fan Cody MD, [facility] 03/18/19922 2 2 Fan Cody MD, [facility] /EPI
--- NOTE | 2019-03-18 11:17 | NUR ---
VAT CONSULTED FOR A CL FOR THIS PT WITH LT ARM FISTULA, LT IJ HD CATH, RT IJ SCARRING WITH FAILED ATTEMPTS FOR THE VAT TO PLACE A LINE. IR WAS BUSY SO ATTEMPT X2 TO PLACE RT IJ CL FAILED THE CATHETER WOULD NOT ADVANCE PAST 14CM.
--- NOTE | 2019-03-18 14:27 | NUR ---
WOUND CONSULT; THIS IS A KNOWN PATIENT TO ME. HE HAS AN UNSTAGEABLE PRESSURE WOUND TO HIS RIGHT HIP/ISCHIAL TUBEROSITY. THERE IS NECROTIC TISSUE AT THE BASE OF THE WOUND BED. RECOMMENDATIONS; 1-AQUACEL AG TO THE WOUND BED, COVER WITH A BOARDERED FOAM, DAILY/PRN 2-PLAN IS TO CONSULT DR PALM THURSDAY WHEN THE PATIENT IS MORE STABLE. RN PRESENT
--- NOTE | 2019-03-18 15:17 | NUR ---
INITIAL ASSESSMENT: Received consult. SW reviewed chart and spoke with nursing and attending physician. Pt was admitted from [facility] due to acute on chronic respiratory failure. Pt admitted to the ICU on the ventilator. Pt is currently off the unit in IR. Pt with hx of dementia and is in geospatial developer care at [facility]. Pt does dialysis at [facility]. CLAIRE met with pt's sisters, Leidy and Rima. Introduced role of SW. Pt's sisters state that pt has lived at [facility] for about 3 years. Pt is is normally w/c bound. Pt's sister states that pt was not feeling well the past couple of days and she called to check on pt yesterday at the facility. Per pt's sisters, pt has been eating okay. During last hospitalization, peg tube placement was discussed with pt's sisters. Pt has a new PCP: Dr. Tineo. Pt's sisters confirm plan for pt to return to [facility] when medically stable. No weekend discharge planned. land planner to fax clinical info to [facility] on Thursday for review. CLAIRE is following to assist as needed with discharge planning.
--- NOTE | 2019-03-18 15:44 | EKG ---
[address] [place] [address] ELECTROCARDIOGRAM REPORT Name: GURJIT FISCHERY Axel Room #: 244-P ADM IN M.R.#: [id number] Admission: 03/18/19 Attend Phys: Srikanth Nava MD Discharge: Date of : 56 Report #: [id number] THIS REPORT FOR: //name// [facility] Test Date: 2019-03-18 Test Time: 09:35:30 Pat Name: TOAN FISCHER Department: Room: 244 Gender: M Quality Assurance Supervisor Final: Moe STANLEY : 1960 Requested By: Srikanth Nava Order Number: [id number] MD: Fan Cody Measurements Intervals [place] Rate: 156 P: 5 [place]: 162 QRS: 24 QRSD: 67 T: 188 QT: 251 QTc: 405 Interpretive Statements Sinus tachycardia Abnormal R-wave progression, early transition Repolarization abnormality, prob rate related Baseline wander in lead(s) V5 Compared to ECG 03/18/2019 01:13:25 No significant change was found Electronically Signed On 03-18-2019 15:44:14 [employer]ODUCT LISTER by Fan Cody [email or web address] <ELECTRONICALLY SIGNED> By: Fan Cody MD, [facility] 03/18/19 1544 [id number] [id number] Fan Cody MD, [facility] /EPI
--- NOTE | 2019-03-18 16:44 | NUR ---
PT IS FROM [facility] FAXED CLINICAL UPDATE TO FACILITY RECEOVED CONFIRMATION AND LEFT MSG WITH CELESTE IN ADM.
[2019-03-18 17:57] LABS: CALCIUM 8.7 mg/dL (8.5-10.1)
[2019-03-18 18:04] LABS: CREATININE 5.3 mg/dL (0.7-1.3)
--- NOTE | 2019-03-18 20:29 | NUR ---
ASSUMED CARE AT 0700, PATIENT NONRESPONSIVE AND ON THE VENT. PATIENT IS A DIALYSIS PATIENT AND RECEIVES DIALYSIS . DR CHO ATTEMPTED TO GET AN A LINE FOR THE PATIENT SINCE HIS BLOOD PRESSURE WAS ALL OVER THE PLACE. DR CHO WAS UNABLE TO GET IT, CONSULTED ANESTHESIA FOR HELP WITH THE A LINE. TTHE ANESTHESIA DOCTOR REFUSED TO PUT THE A LINE IN BECAUSE THE PATIENT IS CONTRACTED ON THE RIGHT SIDE AND HAS A DIALYSIS FISTULAON THE LEFT AND SHE WAS CONCERNED WITH INFECTION IN THE GROIN. PATIENT DID NOT RECEIVE AND A LINE BUT BLOOD PRESSURE REMAINED STABLE. PATIENT WENT TO IR FOR CENTRAL LINE PLACEMENT. PATIENT CAME BACK WITH A LEFT IJ THEY WERE UNABLE TO RET IN THE RIGHT SIDE. PATIENT TOLERATED ALL PROCEDURES TODAY. PATIENT CURRENTLY HAVING DIALYSIS AT THIS TIME. NO FURTHER CONCERNS AT THIS TIME. WILL CONTINUE TO MONITOR AND CARE PER PLAN OF CARE.
[2019-03-19] VITALS (106 sets, daily range): BP systolic 74–169; BP diastolic 28–94
[2019-03-19 05:41] LABS: MCH 25.6 pg (26.0-34.0); MCHC 29.9 g/dL (28.0-37.0); RBC 3.94 mil/uL (4.50-6.00)
[2019-03-19 05:43] LABS: HEMATOCRIT 33.8 % (42.0-52.0); MCV 85.8 fL (80.0-100.0); RDW 19.8 % (10.5-14.5)
[2019-03-19 05:47] LABS: HEMOGLOBIN 10.1 gm/dL (14.0-18.0); PLATELET COUNT 147 thou/uL (150-400)
[2019-03-19 05:50] LABS: CALCIUM 8.6 mg/dL (8.5-10.1); POTASSIUM 4.8 mmol/L (3.5-5.1)
[2019-03-19 05:59] LABS: CREATININE 6.4 mg/dL (0.7-1.3)
--- NOTE | 2019-03-19 07:25 | NUR ---
SPOKE WITH DR. PEDERSON ABOUT URGENT NEED FOR TEMPORARY DIALYSIS CATHETER. HE STATED IT SHOULD BE COMPLETED BY IR, DR. PEDRESON MADE AWARE THAT IR IS NOT HERE ON THURSDAY. DR. PEDERSON STATED HE WILL COME INTO THE HOSPITAL.
--- NOTE | 2019-03-19 07:39 | NUR ---
DIALYSIS WAS NOT DONE LAST NIGHT DUE TO DIALYSIS CATH NOT FUNCTIONING. DR JOHN WAS NOTIFIED AT THE TIME AND ORDERED TEMPORAL DIALYSIS CATH BY IR IN AM.PT REMAINED STABLE ON THE VENT OVERNIGHT, LEVOPHED WAS TITRATED OFF BUT HAD TO RESTART AFTER A COUPLE OF HOURS , PT BEING HYPOTENSIVE. CRITICAL LACTIC ACID CALLED TO [facility] THIS AM.
[2019-03-19 08:00] LABS: ABSOLUTE NEUTROPHILS 7.6 thou/uL (1.4-8.2)
[2019-03-19 08:01] LABS: ANISOCYTOSIS 2+; BURR CELLS OCCASIONAL; TARGET CELLS OCCASIONAL
--- NOTE | 2019-03-19 09:44 | NUR ---
TEMPORARY DIALYSIS CATHETER INSERTED TO RIGHT GROIN BY DR. BOWSER AT BEDSIDE, AWAITING DIALYSIS.
--- NOTE | 2019-03-19 13:15 | NUR ---
DR. CHO RECOMMENDED HEPARIN DRIP FOR BLOOD CLOTS. SPIKE WITH DR. FRAZIER ABOUT SITUATION, DR. FRAZIER DOES NOT WANT PATIENT TO BE PLACED ON HEPARING DRIP DUE TO CHRONIC CLOTS.
--- NOTE | 2019-03-19 18:47 | NUR ---
END OF SHIFT: PATIENT COMPLETING DIALYSIS, LABWORK TO BE RECHECKED AT 1930. ON VENITLAOR FIO2 50% WEANED FROM 70% DURING BEGINNING OF THE SHIFT. LEVOFED FOR BLOOD PRESSURE SUPPORT, MAP REMAINED ABOVE 60. DIE SETTER REMOVED 1.7 L OFF. REPORT GIVEN. NO SIGNS OF ACUTE DISTRESS NOTED AT THIS TIME. WILL CONTINUE TO MONITOR.
[2019-03-20] VITALS (57 sets, daily range): BP systolic 93–153; BP diastolic 45–81
--- NOTE | 2019-03-20 04:46 | NUR ---
NO OVERNIGHT EVENTS. PT. RESTED WELL WITH NO SIGNS OF AGITATION TONIGHT. PT. SHOULD BE READY FOR CPAP TRIAL TODAY. ASSESSMENTS AND VITAL SIGNS CHARTED. MEDICATION TITRATION CHARTED. CONTINUE TO FOLLOW POC. WILL CONTINUE TO MONITOR.
[2019-03-20 06:09] LABS: RBC 3.64 mil/uL (4.50-6.00); RDW 20.5 % (10.5-14.5); WBC 11.2 thou/uL (4.0-11.0)
[2019-03-20 06:10] LABS: CALCIUM 8.7 mg/dL (8.5-10.1); HEMATOCRIT 30.8 % (42.0-52.0); HEMOGLOBIN 9.2 gm/dL (14.0-18.0); MCH 25.4 pg (26.0-34.0); MCV 84.7 fL (80.0-100.0); PLATELET COUNT 135 thou/uL (150-400)
[2019-03-20 06:25] LABS: CREATININE 3.8 mg/dL (0.7-1.3); POTASSIUM 3.4 mmol/L (3.5-5.1)
[2019-03-20 10:39] LABS: ABSOLUTE NEUTROPHILS 10.1 thou/uL (1.4-8.2)
[2019-03-20 10:40] LABS: ANISOCYTOSIS 2+
[2019-03-20 12:47] LABS: MAGNESIUM 1.8 mg/dL (1.8-2.4); PHOSPHORUS 2.6 mg/dL (2.5-4.9)
--- NOTE | 2019-03-20 19:12 | NUR ---
PATIENT OPENS EYES WHEN NAME IS CALLED AND FOLLOWS COMMANDS. WEANED OFF LEVOFED DRIP SINCE 0700, MAP REMAINED ABOVE 60. DR. JOHN SPOKE WITH SISTER (WADE FISCHER) ON THE TELEPHONE ABOUT PROGNOSIS AND POSSIBLE PLAN. DR. CHO ALSO SPOKE WITH SISTER ABOUT CODE STATUS AND PROGNOSIS IF PATIENT CANNOT FURTHER RECIEVE CONTINUOUS DIALYSIS. SISTER STATED SHE HAD 3 FAMILY MEMBERS ON DIALYSIS THAT IN THE HOSPITAL AND SHE WANTS EVERYTHING DONE IF PATIENT HEART STOPS. DR. CHO EXPLAINED QUALITY OF LIFE AND THAT IF PATIENT IS UNABLE TO RECIEVE DIALYSIS, HE WOULD NOT BE ABLE TO CLEAR TOXINS FROM THE BODY. CPAP TRIAL COMPLETED FOR 10 MINUTES TODAY, PATIENT DID NOT TOLERATE WELL: RESPIRATIONS REMAINED ABOVE 30 DURING TRIAL AND PATIENT HYPERVENTILATED. NO SIGNS OF ACUTE DISTRESS NOTED AT THIS TIME. WILL CONTINUE TO MONITOR.
[2019-03-21] VITALS (94 sets, daily range): BP systolic 90–169; BP diastolic 40–93
[2019-03-21 00:05] LABS: HEP B SURFACE Ab(ANTI-HBS Non Reactive (()); HEPATITIS B SURFACE AG Negative (Negative)
[2019-03-21 06:07] LABS: HEMATOCRIT 30.4 % (42.0-52.0); HEMOGLOBIN 9.2 gm/dL (14.0-18.0); MCH 25.5 pg (26.0-34.0); MCHC 30.1 g/dL (28.0-37.0); MCV 84.8 fL (80.0-100.0); PLATELET COUNT 113 thou/uL (150-400); RBC 3.59 mil/uL (4.50-6.00); RDW 20.6 % (10.5-14.5); WBC 12.2 thou/uL (4.0-11.0)
[2019-03-21 06:31] LABS: CALCIUM 8.9 mg/dL (8.5-10.1); POTASSIUM 3.7 mmol/L (3.5-5.1)
[2019-03-21 06:39] LABS: CREATININE 4.8 mg/dL (0.7-1.3)
[2019-03-21 08:36] LABS: ABSOLUTE NEUTROPHILS 10.5 thou/uL (1.4-8.2)
[2019-03-21 08:37] LABS: ANISOCYTOSIS 2+
[2019-03-21 08:38] LABS: HYPOCHROMASIA 2+
--- NOTE | 2019-03-21 16:51 | NUR ---
PT IS FROM [facility] FAXED CLINICAL UPDATE TO FACILITY SPOKE WITH CELESTE IN ADM SHE RECEIVED UPDATE. DP TO FOLLOW.
--- NOTE | 2019-03-21 16:54 | HC ---
[facility] [place] [address] CONSULTATION Name: TOAN FISCHER Axel Room #: 244-P [facility] IN ..#: [id number] Admission: 03/18/19 Attend Phys: Srikanth Nava MD Discharge: Date of : 56 Report #: [id number] THIS REPORT FOR: //name// CC: [facility] DATE OF SERVICE: 03/18/2019 INFECTIOUS DISEASE CONSULTATION REASON FOR CONSULTATION: I was asked to evaluate the patient concerning septic shock. HISTORY OF PRESENT ILLNESS: The patient is a 58-year-old in skilled nursing with end-stage renal disease, diabetes who I have treated in the past for E. coli bacteremia. Most recent hospitalization was in first week of December through the first week of January where he was treated for E. coli bacteremia, suspected graft source. This was inconclusive in the evaluation whether it is from his urinary tract or from the fistula. The studies including imaging of the fistula as well as indium scan failed to identify any uptake in the graft. This area was abandoned. Had a left chest tunneled catheter that was placed. Following completion of his antibiotic course, he was doing much better and spent a short time in acute rehab. Over the last week, the patient has had issues with nausea and vomiting. This morning was found to be unresponsive, hypotensive, concern for underlying aspiration. He was intubated, now on 100% FiO2. Given IV fluids and now on vasopressors. He has a left chest tunneled dialysis catheter. He has a left IJ catheter that was placed this afternoon. He is now on dialysis. He is on FiO2 of 100%. Blood cultures have been obtained and sputum culture has been obtained. His urinalysis was unremarkable. He remains obtunded, unable to give any further details. History was taken from nursing staff as well as patient's sister who is a reasonable historian, although she does not live at the skilled nursing. He has had no reported chest pain, no diarrhea. Continues with his 3 times a week dialysis. No reported fever, chills or sweats. REVIEW OF SYSTEMS: The patient was unable to give any further details other than what has been noted above. ALLERGIES: MORPHINE, CODEINE, LYRICA. MEDICATIONS: As noted on his MAR, having been given vancomycin, Zosyn, Levaquin, Solu-Medrol, insulin, ipratropium, albuterol, Levophed, metoprolol, Pepcid, midazolam. PAST MEDICAL HISTORY: Bilateral heel decubiti, diabetes, hypertension, atrial fibrillation, glaucoma, gastroesophageal reflux, cataract surgery, gastroparesis, contractures, peripheral neuropathy, peripheral vascular disease, [place] [address] CONSULTATION Name: TOAN FISCHER Room #: 244-P [facility] IN M.R.#: [id number] Admission: 03/18/19 Attend Phys: Srikanth Nava MD Discharge: Date of : 56 Report #: [id number] left upper extremity AV graft for his dialysis, now with a left chest tunneled dialysis catheter. FAMILY HISTORY: Noncontributory. SOCIAL HISTORY: Nonsmoker. No significant alcohol intake. Now resides in skilled nursing. PHYSICAL EXAMINATION: VITAL SIGNS: Initial temperature was 102.5. Subsequently, he has been hypothermic, tachycardic. Now blood pressure 119/54, on 10 mcg of Levophed. He is orally intubated, on 100% FiO2. GENERAL: He does arouse, opens his eyes. He is currently on dialysis. Has a left IJ central catheter in place with no surrounding erythema or drainage. Left chest tunneled dialysis catheter without erythema, fluctuance or drainage. NECK: Supple. LUNGS: Coarse bilaterally posteriorly, right greater than left. HEART: Regular; without murmur, gallop or rub. ABDOMEN: Soft, nontender. Did not appear much discomfort with palpation. No appreciable masses or hepatosplenomegaly. GENITOURINARY: External genitalia without lesion. EXTREMITIES: Right hip wound with odorous drainage. Contractures of both upper and lower extremities. NEUROLOGIC: Mood was depressed, unresponsive. He did move his upper extremities, minimal movement in his lower extremities, with contractures. LABORATORY STUDIES: Sodium 133, potassium 5, bicarbonate 23, creatinine 6.7. Liver function test normal. Lactate 2.5. Urinalysis unremarkable. Drug screen negative. Alcohol level negative. Hemoglobin 12.5, white count 4.4, platelet count 278,000. He had 80% segs, 4% bands. Procalcitonin 3.1. CT of the head, no acute change. Chest x-ray, bilateral infiltrates, right greater than left, with interstitial component. MRSA screen negative. Sputum culture pending. Blood cultures are pending. IMPRESSION: A 58-year-old with septic shock, likely aspiration, healthcare-associated pneumonia, possible component of heart failure in markedly debilitated patient with end-stage renal disease. He has had recurrent E. coli bacteremia that I treated last month, completing a 4-week course of treatment. Unable to confirm that his left upper extremity AV graft was the source. We will also need to await blood cultures to establish whether this is a component of his deterioration. Currently, the patient is on the respirator ventilator and vasopressors. Outlooks for survival is of great concern. I have discussed with the patient's sister at the bedside. RECOMMENDATIONS: We will continue full ICU support with sepsis protocol, [facility] [address] [place] [address] CONSULTATION Name: TOAN FISCHER Room #: 244-P ADM IN ..#: [id number] Admission: 03/18/19 Attend Phys: Srikanth Nava MD Discharge: Date of : 56 Report #: [id number] vasopressors and antibiotics. We will adjust according to culture results when available. I have discussed with nursing at the bedside. We will continue with combination broad antibiotic coverage. <ELECTRONICALLY SIGNED> By: José Miguel Slaughter MD 03/21/19 1654 1825 0449 José Miguel Slaughter MD /nt
[2019-03-21 17:35] LABS: INR 1.3; PROTIME 13.3 Seconds (9.3-11.4)
--- NOTE | 2019-03-21 19:43 | NUR ---
PT FOLLOWS COMMANDS. DRESSING CHANGED ON RIGHT HIP WITH DAKINS. CONSENT ON CHART FOR TUNNED DIALYSIS CATHETER. LUNGS ARE COARSE. SINUS TACH ON THE MONITOR. FAMILY AT BEDSIDE FOR SUPPORT TODAY. REMAINS ON THE VENT AT THIS TIME. LARGE BM TODAY. TURN Q 2 HOURS. RECIEVED DILAYISIS TODAY FOR TREATMENT. CONTINUE ON GOING NURSING PLAN OF CARE FOR PT NEEDS.
[2019-03-22] VITALS (50 sets, daily range): BP systolic 60–246; BP diastolic 24–201
[2019-03-22 05:54] LABS: INR 1.2; PROTIME 12.5 Seconds (9.3-11.4)
--- NOTE | 2019-03-22 09:41 | HC ---
[facility] [place] [address] CONSULTATION Name: TOAN FISCHER Room #: 244-P [facility] IN ..#: [id number] Admission: 03/18/19 Attend Phys: Srikanth Nava MD Discharge: Date of : 56 Report #: [id number] THIS REPORT FOR: //name// CC: Srikanth Nava [facility] DATE OF SERVICE: 03/18/2019 REASON FOR CONSULTATION: End-stage renal disease. REASON FOR PRESENTATION: Non-responsiveness with labored breathing. HISTORY OF PRESENT ILLNESS: This is obtained from the chart. He has an end-stage renal disease with so many hospitalizations and septic events. He is maintained on dialysis every Thursday, Thursday and Thursday. His medical staff in his facility checked on him and found that he was hypoxic, tachycardic, and unresponsive. The patient was sent to the Emergency Room where he was found to be hypotensive with criteria of sepsis and was accordingly managed and admitted to the ICU after being intubated. Chest x-ray was consistent with pulmonary edema. The patient is currently maintained on Levophed and I am being asked to assist with his hemodialysis. The patient previously has had repeated episodes of sepsis with multiple microorganisms including most recent E. coli. He has a clotted AV graft. We committed him to a dialysis with a tunneled dialysis catheter last admission. PAST MEDICAL HISTORY: 1. Diabetes mellitus. 2. Chronic hypertension. 3. Atrial fibrillation. 4. End-stage renal disease, maintained on hemodialysis every Thursday, Thursday and Thursday. 5. Clotted AV graft with multiple AV graft declotting procedures culminating into sepsis. 6. Repeated episodes of intubation. 7. Failure to thrive. MEDICATIONS: 1. Midodrine. 2. Gabapentin. 3. Pantoprazole. 4. Folic acid. ALLERGIES: MORPHINE AND CODEINE. SOCIAL HISTORY: Resides in the [facility] [address] [place] [address] CONSULTATION Name: TOAN FISCHER Room #: 244-P [facility] IN [facility]#: [id number] Admission: 03/18/19 Attend Phys: Srikanth Nava MD Discharge: Date of : 56 Report #: [id number] FAMILY HISTORY: Unobtainable given the patient's current mental status. REVIEW OF SYSTEMS: Unobtainable given the patient's current mental status. PHYSICAL EXAMINATION: VITAL SIGNS: Pulse rate is 140, blood pressure is 112/34. He is currently intubated. HEAD AND NECK: ET tube in place. CHEST: Bilateral crackles. CARDIOVASCULAR: No rub. ABDOMEN: Soft, nontender. LOWER EXTREMITIES: +2 edema with chronic wounds on the ankles. LABORATORY DATA: Reviewed. Lactate was 2.49, hemoglobin is 12.5. Sodium was 133, potassium was 5, BUN is 23, creatinine 6.7. UA with +3 blood and +3 protein with leukocyte esterase and white blood cells. IMPRESSION AND PLAN: 1. End-stage renal disease. 2. Respiratory failure. 3. Hypertension. 4. Tachycardia. 5. Repeated episodes of sepsis and septic shock in the past. 6. The patient is currently admitted to the Intensive Care Unit status post intubation, will arrange for the patient to have hemodialysis today. 7. Septic workup had been initiated. 8. Appropriate antibiotics initiated in the Emergency Room. 9. Keep on pressors. 10. Avoid IV fluid. Unfortunate very difficult social situations with very unrealistic expectation from the patient's family in the past. <ELECTRONICALLY SIGNED> By: Soledad Silva MD 03/22/19 0941 0753 0824 Soledad Silva MD /nt
--- NOTE | 2019-03-22 16:21 | NUR ---
TOAN OXYGEN SATURATION IS 77 PERCENT CHANGED VENT SETTING NOTIFIY PULMONARY AND DR. OSBORNE. BLOOD PRESSURE WAS LOW STARTED LEVOPHED DRIP. LIMITED RESPONSE AT THIS TIME. RESPIRATORY AT BEDSIDE GETING ABG AT THIS TIME. ONGOING NURSING CARE CONTINUES WITH PLAN OF Care a full code per family request at this time.
--- NOTE | 2019-03-22 17:00 | NUR ---
DR. OSBORNE CAME BY SEEN PT AND FAMILY REQUEST DESPITE OXYGEN SATURATION AND AND DISEASE PROCESS THEY WISH FOR FULL CODE. ONGOING NURSING CARE CONTINUES AT THIS TIME PER FAMILY REQUEST IN REGARDS TO PT STATUS
--- NOTE | 2019-03-22 20:41 | NUR ---
PT IS UNRESPONSIVE, WITH LOW O2 SATS ON THE VENT, RR IN THE UPPER 30'S. PT'S SISTER WADE CAME AND VISITED FOR A WHILE, SHE SAID THAT HER SISTER PETE IS THE DPOA AND SHE WANTS THE PT TO REMAIN FULL CODE.
[2019-03-23] VITALS (23 sets, daily range): BP systolic 52–226; BP diastolic 18–167
--- NOTE | 2019-03-23 00:06 | NUR ---
RT AT BEDSIDE AROUND 2039 ATTEMPTING TO DRAW BLOOD GASES, TEMPORARILY PLACED PT ON PRESSURE CONTROL ON THE VENT, PT'S O2 SATS IMPROVED FROM 50% TO 85% ON AND RESP RATE CAME DOWN FROM 30'S TO 20'S PRESSURE CONTROL. NOTIFIED DR DUVALL THAT PT WAS DOING BETTER ON PRESSURE CONTROL AND HE SAID TO MAINTAIN PT ON IT, AND KEEP PT COMFORTABLE WITH FENTANYL PRN, HOWEVER PT'S DPOA REFUSED FOR PT TO GET FENTANYL, SAYING THAT WE CAN ONLY GIVE VERSED NEEDED. ABG'S WERE NOT DRAWN DUE TO PT BEING HARD STICK, AND MULTIPLE ATTEMPTS HAVE BEEN UNSUCCESSFUL AND DR DUVALL IS AWARE.
[2019-03-23 06:19] LABS: CALCIUM 8.7 mg/dL (8.5-10.1); CREATININE 5.3 mg/dL (0.7-1.3); HEMATOCRIT 36.9 % (42.0-52.0); HEMOGLOBIN 10.1 gm/dL (14.0-18.0); MCH 25.2 pg (26.0-34.0); MCHC 27.5 g/dL (28.0-37.0); RBC 4.02 mil/uL (4.50-6.00); RDW 20.8 % (10.5-14.5); WBC 30.4 thou/uL (4.0-11.0)
[2019-03-23 06:21] LABS: MCV 91.8 fL (80.0-100.0)
[2019-03-23 08:36] LABS: BE(vivo) -16.1 mmol/L (-2 to +3); PCO2 84.6 mmHg (35.0-45.0); PO2 45.3 mmHg (80.0-100.0); pH 6.921 (7.360-7.450); sO2 52.6 % (92.0-98.0)
--- NOTE | 2019-03-23 11:13 | NUR ---
ASSUMED CARE @ 0700 03/23/19, PT CODED @ APPROXIMATELY 0867, PLEASE SEE CODE SHEET FOR SPECIFICS. TIME OF 0915, PACKET FILLED, FAMILY AWARE, DR GARCIA, DR DUVALL AND DR FRAZIER AT BEDSIDE.
--- NOTE | 2019-03-25 12:45 | EKG ---
[address] [address] ELECTROCARDIOGRAM REPORT Name: TOAN FISCHER Room #: 244-[facility] IN .R.#: [id number] Admission: 03/18/19 Attend Phys: Srikanth Nava MD Discharge: 03/23/19 Date of : 56 Report #: [id number] THIS REPORT FOR: //name// [facility] Test Date: 2019-03-23 Test Time: 08:47:24 Pat Name: TOAN FISCHER Department: Room: [facility] Gender: M Timers Inspector: JOSH : 1960 Requested By: Srikanth Nava Order Number: [id number] MD: Fan Cody Measurements Intervals [place] Rate: 100 P: -62 HI: 182 QRS: 268 QRSD: 107 T: 74 QT: 362 QTc: 467 Interpretive Statements Sinus tachycardia Left anterior hemiblock Right bundle branch block Compared to ECG 03/18/2019 09:35:30 Right bundle branch block is now present Sinus tachycardia no longer present Electronically Signed On 03-25-2019 12:45:15 [employer] by Fan Cody [email or web address] <ELECTRONICALLY SIGNED> By: Fan Cody MD, [facility] 03/25/19 1245 0847 0847 Fan Cody MD, [facility] /EPI
--- NOTE | 2019-03-28 18:37 | HC ---
[facility] [place] [address] [place] [address] CONSULTATION Name: TOAN FISCHER Room #: 244-P [facility].#: [id number] Admission: 03/18/19 Attend Phys: Srikanth Nava MD Discharge: 03/23/19 Date of : 56 Report #: [id number] THIS REPORT FOR: //name// CC: [facility] DATE OF SERVICE: 03/21/2019 CHIEF COMPLAINT: Pressure ulcer to the right hip. HISTORY OF PRESENT ILLNESS: This is a 58-year-old male patient who I am asked to see in the Intensive Care Unit with ____. He is not able to provide any information about himself. He was intubated and sedated. PAST MEDICAL HISTORY: Positive for a history of pressure ulcer to the right hip, bilateral heel ulcers, diabetes, hypertension, atrial fibrillation, glaucoma, gastroesophageal reflux disease, gastroparesis and contractures as well as type 2 diabetes mellitus. SOCIAL HISTORY: Unknown. FAMILY HISTORY: Unknown. MEDICATIONS: Include ascorbic acid, Zofran, folic acid, timolol eyedrops, Azopt ophthalmic drops, dorzolamide ophthalmic drops, Pred Forte ophthalmic drops, Florastor, Nephro-Maycol, liquid tears, Ativan, Cymbalta, PhosLo, Xalatan and Peridex. ALLERGIES: MORPHINE, CODEINE and LYRICA. REVIEW OF SYSTEMS: Not obtainable due to the patient's condition. PHYSICAL EXAMINATION: VITAL SIGNS: Include temperature 38.4, pulse rate 118, respiratory rate of 16, blood pressure 105/40. GENERAL: This is a chronically ill-appearing male patient, who is minimally responsive. HEENT: Head is grossly normocephalic. Nose is clear. He is intubated. NECK: Supple. LUNGS: Coarse. HEART: Tachycardic. ABDOMEN: Soft. EXTREMITIES: Pelvic region demonstrates a stage 3 pressure ulceration to the right hip. It is clean with granulation tissue. It is not infected. There was some depth, but no exposure of deep structures. He has dry crusted callusy skin to both heels. Nothing is obviously open, but there is evidence of prior or [facility] [address] [place] [address] CONSULTATION Name: TOAN FISCHER Room #: 244-P [facility]#: [id number] Admission: 03/18/19 Attend Phys: Srikanth Nava MD Discharge: 03/23/19 Date of : 56 Report #: [id number] possibly underlying pressure ulceration to both heels. CLINICAL IMPRESSION: 1. Stage 3 pressure ulceration to the right greater trochanter. 2. Respiratory failure, requiring mechanical ventilation. 3. Unstable pressure ulcers, bilateral heels. 4. Acute mental status changes. 5. Diabetes mellitus. RECOMMENDATIONS: At this point in time, we will recommend a simple quarter strength Dakin's moist gauze dressing daily to the right hip. He will need a low air loss mattress, q. 2 hour turning and positioning and aggressive nutritional support, continuation of current medications. Findings have been discussed with nursing staff as well as a family member at the bedside. Additionally, we will recommend PRAFO boots to both lower extremities. I appreciate being asked to see him in consultation. <ELECTRONICALLY SIGNED> By: Dallin Lebron MD 03/28/19 1837 1731 2208 Dallin Lebron MD /nt
== END 2019-03-23 09:15 | DRG 870 ==
LOC: ER 01:07 → EROBS 02:36 → ICU 02:36
PROVIDERS: Emergency Medicine; Hospitalist; Internal Medicine; Internal Medicine Pulmonary Disease; Nurse Practitioner Family; Radiology Vascular & Interventional Radiology; ADMIT Internal Medicine
PROC: B5131ZA Fluoroscopy of Right Jugular Veins using Low Osmolar Contrast, Guidance (ICD-10-PCS; principal; 2019-03-18)
PROC: 04JYXZZ Inspection of Lower Artery, External Approach (ICD-10-PCS; principal; 2019-03-18)
PROC: 0BH17EZ Insertion of Endotracheal Airway into Trachea, Via Natural or Artificial Opening (ICD-10-PCS; principal; 2019-03-18)
PROC: B5141ZA Fluoroscopy of Left Jugular Veins using Low Osmolar Contrast, Guidance (ICD-10-PCS; principal; 2019-03-18)
PROC: 5A1955Z Respiratory Ventilation, Greater than 96 Consecutive Hours (ICD-10-PCS; principal; 2019-03-18)
PROC: 02HV33Z Insertion of Infusion Device into Superior Vena Cava, Percutaneous Approach (ICD-10-PCS; principal; 2019-03-18)
PROC: B548ZZA Ultrasonography of Superior Vena Cava, Guidance (ICD-10-PCS; principal; 2019-03-18)
PROC: 06HY33Z Insertion of Infusion Device into Lower Vein, Percutaneous Approach (ICD-10-PCS; 2019-03-19)
PROC: 02PYX3Z Removal of Infusion Device from Great Vessel, External Approach (ICD-10-PCS; 2019-03-22)
PROC: B5181ZZ Fluoroscopy of Superior Vena Cava using Low Osmolar Contrast (ICD-10-PCS; 2019-03-22)
PROC: 0J2TXYZ Change Other Device in Trunk Subcutaneous Tissue and Fascia, External Approach (ICD-10-PCS; 2019-03-22)
PROC: B5181ZA Fluoroscopy of Superior Vena Cava using Low Osmolar Contrast, Guidance (ICD-10-PCS; 2019-03-22)
PROC: 5A1D70Z Performance of Urinary Filtration, Intermittent, Less than 6 Hours Per Day (ICD-10-PCS; 2019-03-22)
PROC: 02HV33Z Insertion of Infusion Device into Superior Vena Cava, Percutaneous Approach (ICD-10-PCS; 2019-03-22)
PROC: 5A12012 Performance of Cardiac Output, Single, Manual (ICD-10-PCS; 2019-03-23)
DX: A41.9 Sepsis, unspecified organism (principal); L89.213 Pressure ulcer of right hip, stage 3; R65.21 Severe sepsis with septic shock; J18.9 Pneumonia, unspecified organism; J96.01 Acute respiratory failure with hypoxia; G92 Toxic encephalopathy; N18.6 End stage renal disease; E43 Unspecified severe protein-calorie malnutrition; R53.2 Functional quadriplegia; T82.41XA Breakdown (mechanical) of vascular dialysis catheter, initial encounter; T82.868A Thrombosis due to vascular prosthetic devices, implants and grafts, initial encounter; I12.0 Hypertensive chronic kidney disease with stage 5 chronic kidney disease or end stage renal disease; N39.0 Urinary tract infection, site not specified; I82.C21 Chronic embolism and thrombosis of right internal jugular vein; I82.C12 Acute embolism and thrombosis of left internal jugular vein; Z16.12 Extended spectrum beta lactamase (ESBL) resistance; I69.351 Hemiplegia and hemiparesis following cerebral infarction affecting right dominant side; E11.43 Type 2 diabetes mellitus with diabetic autonomic (poly)neuropathy; K31.84 Gastroparesis; I48.91 Unspecified atrial fibrillation; H40.9 Unspecified glaucoma; K21.9 Gastro-esophageal reflux disease without esophagitis; E11.22 Type 2 diabetes mellitus with diabetic chronic kidney disease; Y95 Nosocomial condition; E83.42 Hypomagnesemia; E11.42 Type 2 diabetes mellitus with diabetic polyneuropathy; E11.51 Type 2 diabetes mellitus with diabetic peripheral angiopathy without gangrene; L89.620 Pressure ulcer of left heel, unstageable; L89.610 Pressure ulcer of right heel, unstageable; G40.909 Epilepsy, unspecified, not intractable, without status epilepticus; S70.911A Unspecified superficial injury of right hip, initial encounter; X58.XXXA Exposure to other specified factors, initial encounter; F32.9 Major depressive disorder, single episode, unspecified; D63.8 Anemia in other chronic diseases classified elsewhere; Y84.1 Kidney dialysis as the cause of abnormal reaction of the patient, or of later complication, without mention of misadventure at the time of the procedure; B96.4 Proteus (mirabilis) (morganii) as the cause of diseases classified elsewhere; R00.1 Bradycardia, unspecified; Y83.2 Surgical operation with anastomosis, bypass or graft as the cause of abnormal reaction of the patient, or of later complication, without mention of misadventure at the time of the procedure; Z66 Do not resuscitate; Z51.5 Encounter for palliative care; Z74.01 Bed confinement status; Z79.899 Other long term (current) drug therapy; Z88.6 Allergy status to analgesic agent; Z88.8 Allergy status to other drugs, medicaments and biological substances; Z99.2 Dependence on renal dialysis; Z79.4 Long term (current) use of insulin; Z79.51 Long term (current) use of inhaled steroids; Y93.89 Activity, other specified; Y92.89 Other specified places as the place of occurrence of the external cause; Y99.8 Other external cause status; Y92.128 Other place in nursing home as the place of occurrence of the external cause
CPT/HCPCS: 10078; 32100; 85014